=== PATIENT | male | born 1980 | race African-American/Black ===

== ENCOUNTER 2021-12-28 14:25 | Inpatient (IN) | payer SELFPAY ==
[~2021-12-28] VITALS: Ht 185.4 cm; Wt 122.1 kg
[2021-12-28] MEDS ORDERED: ONDANSETRON PF 4 MG/2 ML VIAL. IVP ONE (14:45)
[2021-12-28] MEDS ORDERED: IV NORMAL SALINE 1000ML BAG 1,000 ML IV SCH (14:45)
[2021-12-28] MEDS ORDERED: fentaNYL PF VIAL 100 MCG/2 ML VIAL IVP ONE (14:45)
--- NOTE | 2021-12-28 14:52 | PHYS DOC ---
Past Medical History Past Surgical History: No Surgical History Smoking Status: Current Every Day Smoker Additional Information: 0.5 PPD Alcohol Use: None General Adult EDM: Chief Complaint: ABDOMINAL PAIN HPI: HPI: Patient is a 41-year-old male who presents to the emergency department for left upper quadrant abdominal pain that started last night. Patient rates pain 10 out of 10. No radiation of pain. No alleviating or aggravating factors. He reports that he took Tylenol for the pain at home. Patient reports nausea with one episode of vomiting today. He has a history of pancreatitis but does not feel like this is his typical pancreatitis pain. He is unsure of his cause for his chronic pancreatitis but denies alcohol use. He also denies diarrhea, fevers, urinary symptoms. Review of Systems: Review of Systems: Constitutional: See HPI GI: See HPI : See HPI Musculoskeletal: Denies flank pain Heart Score: C/O Chest Pain: N/A Risk Factors: Risk Factors: DM, Current or recent (<one month) smoker, HTN, HLP, family history of CAD, obesity. Risk Scores: Score 0 - 3: 2.5% MACE over next 6 weeks - Discharge Home Score 4 - 6: 20.3% MACE over next 6 weeks - Admit for Clinical Observation Score 7 - 10: 72.7% MACE over next 6 weeks - Early Invasive Strategies Current Medications: Current Medications Medications (Trade) Dose Ordered Sig/Raul Start Time Stop Time Status Last Admin Dose Admin Fentanyl Citrate (Fentanyl 2ml Vial) 50 mcg 1X ONCE 12/28/21 14:45 12/28/21 14:46 DC Ondansetron HCl (Zofran) 4 mg 1X ONCE 12/28/21 14:45 12/28/21 14:46 DC Sodium Chloride 1,000 ml @ 1,000 mls/hr Q1H 12/28/21 14:45 12/28/21 15:44 Allergies: Allergies: Allergies Coded Allergies Type Severity Reaction Last Updated Verified No Known Drug Allergies 12/28/21 No Physical Exam: PE: Constitutional: Well developed, well nourished, no acute distress, non-toxic appearance. [] HENT: Normocephalic, atraumatic, bilateral external ears normal, oropharynx m oist, no oral exudates, nose normal. [] Eyes: PERRL, EOMI, conjunctiva normal, no discharge. [] Neck: Normal range of motion, no tenderness, supple, no stridor. [] Cardiovascular:Heart rate regular rhythm, no murmur [] Lungs & Thorax: Bilateral breath sounds clear to auscultation [] Abdomen: Bowel sounds normal, soft, no abdominal rigidity, left upper quadrant tenderness with palpation, no masses, neg cullens sign, no pulsatile masses. [] Skin: Warm, dry, no erythema, no rash. [] Back: No tenderness, no CVA tenderness. [] Extremities: No tenderness, no cyanosis, no clubbing, ROM intact, no edema. [] Neurologic: Alert and oriented X 3, normal motor function, normal sensory function, no focal deficits noted. [] Psychologic: Affect normal, judgement normal, mood normal. [] Current Patient Data: Labs: Laboratory Tests Test 12/28/21 14:41 12/28/21 18:12 White Blood Count 8.3 x10^3/uL Red Blood Count 5.67 x10^6/uL Hemoglobin 16.3 g/dL Hematocrit 47.8 % Mean Corpuscular Volume 84 fL Mean Corpuscular Hemoglobin 29 pg Mean Corpuscular Hemoglobin Concent 34 g/dL Red Cell Distribution Width 15.2 % Platelet Count 230 x10^3/uL Neutrophils (%) (Auto) 79 % Lymphocytes (%) (Auto) 16 % Monocytes (%) (Auto) 4 % Eosinophils (%) (Auto) 0 % Basophils (%) (Auto) 1 % Neutrophils # (Auto) 6.6 x10^3/uL Lymphocytes # (Auto) 1.3 x10^3/uL Monocytes # (Auto) 0.4 x10^3/uL Eosinophils # (Auto) 0.0 x10^3/uL Basophils # (Auto) 0.1 x10^3/uL Sodium Level 126 mmol/L Potassium Level 4.7 mmol/L Chloride Level 94 mmol/L Carbon Dioxide Level 26 mmol/L Anion Gap 6 Blood Urea Nitrogen 13 mg/dL Creatinine 0.4 mg/dL Estimated GFR (Cockcroft-Gault) 235.9 BUN/Creatinine Ratio 33 Glucose Level 311 mg/dL Calcium Level 7.0 mg/dL Phosphorus Level 1.7 mg/dL Magnesium Level 2.2 mg/dL Total Bilirubin 1.0 mg/dL Aspartate Amino Transf (AST/SGOT) 3020 U/L Alanine Aminotransferase (ALT/SGPT) 21 U/L Alkaline Phosphatase 960 U/L Troponin I High Sensitivity 5 ng/L Total Protein 7.9 g/dL Albumin 3.8 g/dL Albumin/Globulin Ratio 0.9 Lipase 748 U/L Urine Collection Type Unknown Urine Color (Auto) Light yellow Urine Turbidity Clear Urine pH (Auto) 8.0 Urine Specific [place] 1.029 Urine Protein (Auto) 50 mg/dL Urine Glucose (Auto)(UA) 100 mg/dL Urine Ketones (Auto) 60 mg/dL Urine Blood (Auto) Negative Urine Nitrite Negative Urine Bilirubin (Auto) Negative Urine Urobilinogen (Auto) Normal mg/dL Urine Leukocyte Esterase (Auto) Negative Urine RBC 0 /HPF Urine WBC 1-4 /HPF Urine Squamous Epithelial Cells Mod /LPF Urine Bacteria 0 /HPF Urine Mucus Mod /LPF Current Medications Medications (Trade) Dose Ordered Sig/Raul Route PRN Reason Start Time Stop Time Status Last Admin Dose Admin Sodium Chloride 1,000 ml @ 1,000 mls/hr Q1H IV 12/28/21 14:45 12/28/21 15:44 DC 12/28/21 14:53 Fentanyl Citrate (Fentanyl 2ml Vial) 50 mcg 1X ONCE IVP 12/28/21 14:45 12/28/21 14:46 DC 12/28/21 14:58 Ondansetron HCl (Zofran) 4 mg 1X ONCE IVP 12/28/21 14:45 12/28/21 14:46 DC 12/28/21 14:54 Morphine Sulfate (Morphine Sulfate) 2 mg 1X ONCE IVP 12/28/21 16:00 12/28/21 16:01 DC 12/28/21 15:47 Morphine Sulfate (Morphine Sulfate) 4 mg 1X ONCE IVP 12/28/21 16:00 12/28/21 16:02 DC 12/28/21 16:28 Iohexol (Omnipaque 300 Mg/ml) 75 ml 1X ONCE IV 12/28/21 17:15 12/28/21 17:16 DC 12/28/21 17:15 Info (CONTRAST GIVEN -- Rx MONITORING) 1 each PRN DAILY PRN MC SEE COMMENTS 12/28/21 17:15 12/30/21 17:14 Hydromorphone HCl (Dilaudid) 1 mg 1X ONCE IVP 12/28/21 18:15 12/28/21 18:16 DC 12/28/21 18:16 Vital Signs: Vital Signs Date Time Temp Pulse Resp B/P (MAP) Pulse Ox O2 Delivery O2 Flow Rate FiO2 12/28/21 14:25 98.6 118 22 194/89 (124) 96 Room Air 98.6 EKG: EKG: EKG performed by ER staff at 1631 shows sinus rhythm with rate of 75, QTC is 434, UT intervals 166, no STEMI read by Dr. Wharton 1632 [] Radiology/Procedures: Radiology/Procedures: []REASON: abdominal pain PROCEDURE: CT ABD PELV W/ IV CONTRST ONLY Exam: CT of abdomen and pelvis with contrast INDICATION: Abdominal pain TECHNIQUE: Sequential axial images through the abdomen and pelvis obtained following the administration of 74 mL of Isovue-370 IV contrast. Sagittal and coronal reformatted images were reconstructed from the axial data and reviewed. Exposure: One or more of the following in the visualized dose reduction techniques were utilized for this examination: 1. Automated exposure control 2. Adjustment of the MA and/or KV according to patient size 3. Use of iterative of reconstructive technique Comparisons: None FINDINGS: Heart size is normal. No pericardial effusion. Bandlike opacities at the lung bases likely representing atelectasis. No pleural effusion. Mild diffuse hepatic steatosis. Spleen, gallbladder and adrenals are unremarkable. There is extensive inflammatory changes surrounding the pancreatic tail which has an edematous appearance. No peripancreatic fluid collection is identified. Kidneys demonstrate symmetric enhancement. No perinephric inflammation or hydronephrosis. No renal or ureteral calculi are identified. Bladder is decompressed not well evaluated. Uterus is absent. No abnormal adnexal mass. Moderate amount of stool is noted in the colon. Appendix is normal. No free intra-abdominal air or fluid. No obstruction. Abdominal aorta has normal course caliber. Abdominal vasculature is patent. No suspicious osseous lesions or acute fractures. IMPRESSION: 1. Findings likely related to edematous pancreatitis. No peripancreatic fluid collection or ductal dilatation. 2. Diffuse hepatic steatosis. Electronically signed by: Leif Goldsmith MD (12/28/2021 7:10 PM) [facility] DICTATED and SIGNED BY: LEIF GOLDSMITH MD DATE: 12/28/211905 Course & Med Decision Making: Course & Med Decision Making Pertinent Labs and Imaging studies reviewed. (See chart for details) [] Patient presents to the emergency department for left upper quadrant pain with one episode of vomiting. Work-up in the ER consisted of blood work including lipase, urinalysis and CT imaging of abdomen and pelvis. Patient treated with IV fluids, nausea medication and pain medication. CBC unremarkable. Patient's sodium was 126, chloride of 96, patient had a critical calcium of 7. AST is 3020. Alk phos is 960, lipase is elevated at 748, negative troponin. Patient does not have Chvosteks sign. Patient is requiring multiple doses of IV pain medication and is frequently on his call light requesting pain medication. CT imaging of abdomen and pelvis shows edematous pancreatitis with no perinephric fluid or ductal dilation. Patient will need to be admitted for pancreatitis, intractable abdominal pain and hypocalcemia. Discussed these findings with Dr. Camejo who advised to give patient 1 g of calcium gluconate and order an ionized calcium level. He also advised ordering an abdominal ultrasound. Patient reports that when he last had pancreatitis he was in [place] and is unsure what imaging he had performed. Overall, patient is a poor historian. ER bridge orders placed this time 193. I discussed these findings with patient he is agreeable to care plan. Therese Disclaimer: Therese Disclaimer: This electronic medical record was generated, in whole or in part, using a voice recognition dictation system. Departure Departure Impression: Primary Impression: Pancreatitis Qualified Codes: K85.90 - Acute pancreatitis without necrosis or infection, unspecified Additional Impressions: Intractable abdominal pain Hypocalcemia Disposition: ADMITTED INPATIENT Admitting Physician: LOLA Condition: STABLE LEANNE MENA DRUMS TEACHER Dec 28, 2021 14:52
[2021-12-28 14:59] LABS: POTASSIUM 4.7 mmol/L (3.5-5.1)
[2021-12-28 15:03] LABS: BASO # 0.1 x10^3/uL (0.0-0.2); BASO % 1 % (0-3); EOS % 0 % (0-3); HEMATOCRIT 47.8 % (39.0-53.0); LYMPH # 1.3 x10^3/uL (1.0-4.8); LYMPH % 16 % (24-48); MEAN CORPUSCULAR VOLUME 84 fL (79-100); MONO # 0.4 x10^3/uL (0.0-1.1); MONO % 4 % (0-9); NEUT # 6.6 x10^3/uL (1.8-7.7); NEUT % 79 % (31-73); PLATELET COUNT 230 x10^3/uL (140-400); RED BLOOD COUNT 5.67 x10^6/uL (4.30-5.70); RED CELL DISTRIBUTION WIDTH 15.2 % (11.5-14.5); WHITE BLOOD COUNT 8.3 x10^3/uL (4.0-11.0)
[2021-12-28 15:05] LABS: ALBUMIN 3.8 g/dL (3.4-5.0); ALBUMIN/GLOBULIN RATIO 0.9 (1.0-1.7); TOTAL PROTEIN 7.9 g/dL (6.4-8.2)
[2021-12-28 15:38] LABS: MEAN CORPUSCULAR HEMOGLOBIN 29 pg (25-35); MEAN CORPUSCULAR HGB CONC 34 g/dL (31-37)
[2021-12-28 15:40] LABS: HEMOGLOBIN 16.3 g/dL (13.0-17.5)
[2021-12-28] MEDS ORDERED: MORPHINE SULFATE 2 MG/ML INJ. IVP ONE (16:00)
[2021-12-28] MEDS ORDERED: MORPHINE SULFATE 4 MG/ML INJ. IVP ONE (16:00)
[2021-12-28] MEDS ORDERED: IOHEXOL 300 MG/ML 100ML VIAL. IV ONE (17:15)
[2021-12-28] MEDS ORDERED: CONTRAST GIVEN. MC PRN (17:15)
[2021-12-28 18:07] LABS: CREATININE 0.4 mg/dL (0.7-1.3); GFR 235.9
[2021-12-28] MEDS ORDERED: HYDROmorphone 2 MG/ML INJ. IVP ONE (18:15)
[2021-12-28 18:35] LABS: BACTERIA,URINE 0 /HPF (0-FEW); RBC,URINE 0 /HPF (0-2)
[2021-12-28 19:00] LABS: MAGNESIUM 2.2 mg/dL (1.8-2.4)
--- NOTE | 2021-12-28 19:12 | RAD ---
Exam: CT of abdomen and pelvis with contrast INDICATION: Abdominal pain TECHNIQUE: Sequential axial images through the abdomen and pelvis obtained following the administrati on of 74 mL of Isovue-370 IV contrast. Sagittal and coronal reformatted images were reconstructed fro m the axial data and reviewed. Exposure: One or more of the following in the visualized dose reduction techniques were utilized for this examination: 1. Automated exposure control 2. Adjustment of the MA and/or KV according to patient size 3. Use of iterative of reconstructive technique Comparisons: None FINDINGS: Heart size is normal. No pericardial effusion. Bandlike opacities at the lung bases likely representi ng atelectasis. No pleural effusion. Mild diffuse hepatic steatosis. Spleen, gallbladder and adrenals are unremarkable. There is extensive inflammatory changes surrounding the pancreatic tail which has an edematous appear ance. No peripancreatic fluid collection is identified. Kidneys demonstrate symmetric enhancement. No perinephric inflammation or hydronephrosis. No renal or ureteral calculi are identified. Bladder is decompressed not well evaluated. Uterus is absent. No abnormal adnexal mass. Moderate amount of stool is noted in the colon. Appendix is normal. No free intra-abdominal air or fl uid. No obstruction. Abdominal aorta has normal course caliber. Abdominal vasculature is patent. No suspicious osseous lesions or acute fractures. IMPRESSION: 1. Findings likely related to edematous pancreatitis. No peripancreatic fluid collection or ductal d ilatation. 2. Diffuse hepatic steatosis. Electronically signed by: Leif Lawler MD (12/28/2021 7:10 PM) [facility]
[2021-12-28 19:20] LABS: PHOSPHORUS 1.7 mg/dL (2.6-4.7)
[2021-12-28] MEDS ORDERED: ONDANSETRON PF 4 MG/2 ML VIAL. IVP PRN (19:30)
[2021-12-28] MEDS ORDERED: CALCIUM GLUCONATE 1,000 MG/10 ML VIAL. IVP ONE (19:30)
[2021-12-28] MEDS: IV NORMAL SALINE 1000ML BAG 1,000 ML IV SCH (20:23)
--- NOTE | 2021-12-28 20:39 | RAD ---
EXAM: ULTRASOUND ABDOMEN LIMITED CLINICAL HISTORY: Reason: pancreatitis / Spl. Instructions: / History: COMPARISON: None available. TECHNIQUE: Limited ultrasound examination of the right upper quadrant of the abdomen was performed. FINDINGS: Liver contour is normal. Increased echogenicity of liver. Hepatopedal flow noted in the portal vein. Gallbladder is partially distended and appears thin-walled. No pericholecystic fluid or wall thickeni ng. No gallstones. Common bile duct measures 5 mm in diameter. Right kidney measures 12.4 cm in long axis. No hydronephrosis. Visualized portions aorta and IVC are unremarkable. IMPRESSION: 1. Diffuse hepatic steatosis. 2. Gallbladder is mildly distended. No secondary evidence for acute cholecystitis. 3. No right-sided hydronephrosis Electronically signed by: Leif Lawler MD (12/28/2021 8:37 PM) [facility]
--- NOTE | 2021-12-28 23:19 | NUR ---
admit to room 414 from ED at 2300, patient drowsy answers to yes and no questions and then fall back to sleep, Nursing solar installation crew supervisor notified regarding level of admit status,originally Aidan Vigil RN stated patient is Med/surg and he talked to the nurse practitioner Nichole ,patient is a Med-Surg admission.
[2021-12-28 23:55] VITALS: BP 156/102
[2021-12-29] VITALS (8 sets, daily range): BP systolic 110–192; BP diastolic 76–104
[2021-12-29] MEDS: MORPHINE SULFATE 4 MG/ML INJ. IVP PRN ×4 (00:07→14:29)
--- NOTE | 2021-12-29 00:10 | NUR ---
patient awake ,A nad O X4, screaming in pain holding his abdomen, pain medicine given per order.
--- NOTE | 2021-12-29 04:27 | EKG ---
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
[2021-12-29] MEDS: IV NORMAL SALINE 1000ML BAG 1,000 ML IV SCH ×2 (04:48→14:32)
[2021-12-29 08:20] LABS: BASO % 0 % (0-3); EOS % 0 % (0-3); HEMATOCRIT 54.5 % (39.0-53.0); HEMOGLOBIN 17.7 g/dL (13.0-17.5); LYMPH # 0.8 x10^3/uL (1.0-4.8); LYMPH % 9 % (24-48); MEAN CORPUSCULAR HEMOGLOBIN 28 pg (25-35); MEAN CORPUSCULAR HGB CONC 33 g/dL (31-37); MEAN CORPUSCULAR VOLUME 85 fL (79-100); MONO # 0.5 x10^3/uL (0.0-1.1); MONO % 6 % (0-9); NEUT # 7.3 x10^3/uL (1.8-7.7); NEUT % 84 % (31-73); PLATELET COUNT 259 x10^3/uL (140-400); RED BLOOD COUNT 6.44 x10^6/uL (4.30-5.70); RED CELL DISTRIBUTION WIDTH 15.4 % (11.5-14.5); WHITE BLOOD COUNT 8.7 x10^3/uL (4.0-11.0)
[2021-12-29 09:49] LABS: ALBUMIN 3.5 g/dL (3.4-5.0); ALBUMIN/GLOBULIN RATIO 0.7 (1.0-1.7); CALCIUM 6.3 mg/dL (8.5-10.1); CREATININE 1.9 mg/dL (0.7-1.3); GFR 47.3; TOTAL BILIRUBIN 0.9 mg/dL (0.2-1.0); TOTAL PROTEIN 8.3 g/dL (6.4-8.2)
[2021-12-29 10:35] LABS: POTASSIUM 6.8 mmol/L (3.5-5.1)
[2021-12-29 10:36] LABS: % BANDS 25 % (0-9); % EOS 1 % (0-5); % LYMPHS 9 % (24-48); % METAS 3 % (0-0); % MONOS 4 % (0-10); % SEGS 58 % (35-66)
[2021-12-29 10:37] LABS: PLT ESTIMATE ADEQUATE (ADEQUATE); TEAR DROP CELLS FEW; TOXIC GRANULATION SLIGHT
--- NOTE | 2021-12-29 12:16 | NUR ---
bladder scan performed. denies need to void. he had 143cc per bladder scan. abdomen is tender to touch.
--- NOTE | 2021-12-29 12:40 | PDOC2 ---
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 Limited history from him - "I don't even know where I am" (though does know he's in the hospital). "Stomach hurts" - started 2 days ago. Vomited once. H/o pancreatitis - hospitalized for this in [place] once before - says no cause identified. Denies alcohol use. Yesterday: AST 3020, Alk Phos 960, lipase 748. Today: AST 41, Alk Phos 68, GGT 47. On CT: hepatic steatosis, pancreatitis. On US: CBD 5mm, no gallstones, hepatopedal flow. PMH: PMH: see HPI FH: Family History: Other (unable to obtain) Social History: Smoke: 1 pack per day (per chart) ALCOHOL: none ROS: Difficult to obtain, see HPI. Vitals: Vitals: Vital Signs Date Time Temp Pulse Resp B/P (MAP) Pulse Ox O2 Delivery O2 Flow Rate FiO2 12/29/21 08:13 20 95 Nasal Cannula 2.0 12/29/21 07:00 98.5 122 129/91 (104) 98.5 Labs: Labs: Laboratory Tests Test 12/28/21 14:41 12/28/21 18:12 12/28/21 20:50 12/28/21 23:09 White Blood Count 8.3 x10^3/uL (4.0-11.0) Red Blood Count 5.67 x10^6/uL (4.30-5.70) Hemoglobin 16.3 g/dL (13.0-17.5) Hematocrit 47.8 % (39.0-53.0) Mean Corpuscular Volume 84 fL (79-100) Mean Corpuscular Hemoglobin 29 pg (25-35) Mean Corpuscular Hemoglobin Concent 34 g/dL (31-37) Red Cell Distribution Width 15.2 % (11.5-14.5) Platelet Count 230 x10^3/uL (140-400) Neutrophils (%) (Auto) 79 % (31-73) Lymphocytes (%) (Auto) 16 % (24-48) Monocytes (%) (Auto) 4 % (0-9) Eosinophils (%) (Auto) 0 % (0-3) Basophils (%) (Auto) 1 % (0-3) Neutrophils # (Auto) 6.6 x10^3/uL (1.8-7.7) Lymphocytes # (Auto) 1.3 x10^3/uL (1.0-4.8) Monocytes # (Auto) 0.4 x10^3/uL (0.0-1.1) Eosinophils # (Auto) 0.0 x10^3/uL (0.0-0.7) Basophils # (Auto) 0.1 x10^3/uL (0.0-0.2) Sodium Level 126 mmol/L (136-145) Potassium Level 4.7 mmol/L (3.5-5.1) Chloride Level 94 mmol/L (98-107) Carbon Dioxide Level 26 mmol/L (21-32) Anion Gap 6 (6-14) Blood Urea Nitrogen 13 mg/dL (8-26) Creatinine 0.4 mg/dL (0.7-1.3) Estimated GFR (Cockcroft-Gault) 235.9 BUN/Creatinine Ratio 33 (6-20) Glucose Level 311 mg/dL (70-99) Calcium Level 7.0 mg/dL (8.5-10.1) Phosphorus Level 1.7 mg/dL (2.6-4.7) Magnesium Level 2.2 mg/dL (1.8-2.4) Total Bilirubin 1.0 mg/dL (0.2-1.0) Aspartate Amino Transf (AST/SGOT) 3020 U/L (15-37) Alanine Aminotransferase (ALT/SGPT) 21 U/L (16-63) Alkaline Phosphatase 960 U/L (46-116) Troponin I High Sensitivity 5 ng/L (4-75) Total Protein 7.9 g/dL (6.4-8.2) Albumin 3.8 g/dL (3.4-5.0) Albumin/Globulin Ratio 0.9 (1.0-1.7) Lipase 748 U/L (73-393) Urine Collection Type Unknown Urine Color (Auto) Light yellow Urine Turbidity Clear Urine pH (Auto) 8.0 (<5.0-8.0) Urine Specific [place] 1.029 (1.000-1.030) Urine Protein (Auto) 50 mg/dL (Negative) Urine Glucose (Auto)(UA) 100 mg/dL (Negative) Urine Ketones (Auto) 60 mg/dL (Negative) Urine Blood (Auto) Negative (Negative) Urine Nitrite Negative (Negative) Urine Bilirubin (Auto) Negative (Negative) Urine Urobilinogen (Auto) Normal mg/dL (Normal) Urine Leukocyte Esterase (Auto) Negative (Negative) Urine RBC 0 /HPF (0-2) Urine WBC 1-4 /HPF (0-4) Urine Squamous Epithelial Cells Mod /LPF Urine Bacteria 0 /HPF (0-FEW) Urine Mucus Mod /LPF Ionized Calcium 1.07 mmol/L (1.13-1.32) Glucose (Fingerstick) 230 mg/dL (70-99) Test 12/29/21 07:40 12/29/21 08:45 White Blood Count 8.7 x10^3/uL (4.0-11.0) Red Blood Count 6.44 x10^6/uL (4.30-5.70) Hemoglobin 17.7 g/dL (13.0-17.5) Hematocrit 54.5 % (39.0-53.0) Mean Corpuscular Volume 85 fL (79-100) Mean Corpuscular Hemoglobin 28 pg (25-35) Mean Corpuscular Hemoglobin Concent 33 g/dL (31-37) Red Cell Distribution Width 15.4 % (11.5-14.5) Platelet Count 259 x10^3/uL (140-400) Neutrophils (%) (Auto) 84 % (31-73) Lymphocytes (%) (Auto) 9 % (24-48) Monocytes (%) (Auto) 6 % (0-9) Eosinophils (%) (Auto) 0 % (0-3) Basophils (%) (Auto) 0 % (0-3) Neutrophils # (Auto) 7.3 x10^3/uL (1.8-7.7) Lymphocytes # (Auto) 0.8 x10^3/uL (1.0-4.8) Monocytes # (Auto) 0.5 x10^3/uL (0.0-1.1) Eosinophils # (Auto) 0.0 x10^3/uL (0.0-0.7) Basophils # (Auto) 0.0 x10^3/uL (0.0-0.2) Segmented Neutrophils % 58 % (35-66) Band Neutrophils % 25 % (0-9) Lymphocytes % 9 % (24-48) Monocytes % 4 % (0-10) Eosinophils % 1 % (0-5) Metamyelocytes % 3 % (0-0) Toxic Granulation Slight Platelet Estimate Adequate (ADEQUATE) Large Platelets Occ Tear Drop Cells Few Sodium Level 130 mmol/L (136-145) Potassium Level 6.8 mmol/L (3.5-5.1) Chloride Level 96 mmol/L (98-107) Carbon Dioxide Level 18 mmol/L (21-32) Anion Gap 16 (6-14) Blood Urea Nitrogen 20 mg/dL (8-26) Creatinine 1.9 mg/dL (0.7-1.3) Estimated GFR (Cockcroft-Gault) 47.3 BUN/Creatinine Ratio 11 (6-20) Glucose Level 321 mg/dL (70-99) Calcium Level 6.3 mg/dL (8.5-10.1) Total Bilirubin 0.9 mg/dL (0.2-1.0) Gamma Glutamyl Transpeptidase 47 U/L (10-85) Aspartate Amino Transf (AST/SGOT) 41 U/L (15-37) Alanine Aminotransferase (ALT/SGPT) 20 U/L (16-63) Alkaline Phosphatase 68 U/L (46-116) Total Protein 8.3 g/dL (6.4-8.2) Albumin 3.5 g/dL (3.4-5.0) Albumin/Globulin Ratio 0.7 (1.0-1.7) Allergies: Coded Allergies: No Known Drug Allergies (Unverified , 12/28/21) Medications: Current Medications Medications (Trade) Dose Ordered Sig/Raul Route PRN Reason Start Time Stop Time Status Last Admin Dose Admin Sodium Chloride 1,000 ml @ 1,000 mls/hr Q1H IV 12/28/21 14:45 12/28/21 15:44 DC 12/28/21 14:53 Fentanyl Citrate (Fentanyl 2ml Vial) 50 mcg 1X ONCE IVP 12/28/21 14:45 12/28/21 14:46 DC 12/28/21 14:58 Ondansetron HCl (Zofran) 4 mg 1X ONCE IVP 12/28/21 14:45 12/28/21 14:46 DC 12/28/21 14:54 Morphine Sulfate (Morphine Sulfate) 2 mg 1X ONCE IVP 12/28/21 16:00 12/28/21 16:01 DC 12/28/21 15:47 Morphine Sulfate (Morphine Sulfate) 4 mg 1X ONCE IVP 12/28/21 16:00 12/28/21 16:02 DC 12/28/21 16:28 Iohexol (Omnipaque 300 Mg/ml) 75 ml 1X ONCE IV 12/28/21 17:15 12/28/21 17:16 DC 12/28/21 17:15 Hydromorphone HCl (Dilaudid) 1 mg 1X ONCE IVP 12/28/21 18:15 12/28/21 18:16 DC 12/28/21 18:16 Calcium Gluconate (Calcium Gluconate) 1,000 mg 1X ONCE IVP 12/28/21 19:30 12/28/21 19:34 DC 12/28/21 20:23 Ondansetron HCl (Zofran) 4 mg PRN Q8HRS PRN IVP NAUSEA/VOMITING 12/28/21 19:30 12/29/21 19:29 12/29/21 00:08 Morphine Sulfate (Morphine Sulfate) 4 mg PRN Q2HR PRN IVP PAIN 12/28/21 19:30 12/29/21 19:29 12/29/21 08:13 Sodium Chloride 1,000 ml @ 125 mls/hr Q8H IV 12/28/21 19:30 12/29/21 19:29 12/29/21 04:48 Imaging: Imaging: CT A/P 12/28 FINDINGS: Heart size is normal. No pericardial effusion. Bandlike opacities at the lung bases likely representing atelectasis. No pleural effusion. Mild diffuse hepatic steatosis. Spleen, gallbladder and adrenals are unremarkable. There is extensive inflammatory changes surrounding the pancreatic tail which has an edematous appearance. No peripancreatic fluid collection is identified. Kidneys demonstrate symmetric enhancement. No perinephric inflammation or hydronephrosis. No renal or ureteral calculi are identified. Bladder is decompressed not well evaluated. Uterus is absent. No abnormal adnexal mass. Moderate amount of stool is noted in the colon. Appendix is normal. No free intra-abdominal air or fluid. No obstruction. Abdominal aorta has normal course caliber. Abdominal vasculature is patent. No suspicious osseous lesions or acute fractures. IMPRESSION: 1. Findings likely related to edematous pancreatitis. No peripancreatic fluid collection or ductal dilatation. 2. Diffuse hepatic steatosis. Abd US 12/28 FINDINGS: Liver contour is normal. Increased echogenicity of liver. Hepatopedal flow noted in the portal vein. Gallbladder is partially distended and appears thin-walled. No pericholecystic fluid or wall thickening. No gallstones. Common bile duct measures 5 mm in diameter. Right kidney measures 12.4 cm in long axis. No hydronephrosis. Visualized portions aorta and IVC are unremarkable. IMPRESSION: 1. Diffuse hepatic steatosis. 2. Gallbladder is mildly distended. No secondary evidence for acute cholecystitis. 3. No right-sided hydronephrosis PE: GEN: appears ill HEENT: Atraumatic LUNGS: tachypneic, NC 2L, sat 93 HEART: tachycardic ABD: quiet, soft, epigastrium tender to light palpation EXTREMITY: No edema SKIN: sweating NEURO/PSYCH: lethargic, drifts in and out of sleep A/P: A/P: Abdominal pain - CT suggestive of pancreatitis Tachycardia, tachypnea Hyponatremia, hypocalcemia, hyperglycemia Hyperkalemia, MAYRA - new today, nephrology asked to see Markedly elevated AST and Alk Phos - resolved <24 hours, GGT normal Hepatic steatosis H/o pancreatitis -- Limited history - pancreatitis w/ multiple lab abnormalities as above, ?worsening resp status? Checking triglycerides, will return w/ Dr. Tsai. LUH BAHENA Dec 29, 2021 12:40
--- NOTE | 2021-12-29 12:55 | HP ---
DATE OF SERVICE: 12/29/2021 ADMIT DATE: 12/28/2021 CHIEF COMPLAINT: Abdominal pain. HISTORY OF PRESENT ILLNESS: The patient is a pleasant 41-year-old male who presented to the ER last night with 10/10 pain in the abdomen. We did some imaging and mainly showed pancreatitis. His lipase is high. Interestingly, his AST is really high at 3020, although he denies drinking. He also has hyponatremia of 126. I discussed the case with ER physician and the nurse. We are going to admit the patient and give him IV fluids, pain meds and consult GI. PAST MEDICAL HISTORY: Tobacco abuse. He denies drinking. ALLERGIES: None. FAMILY HISTORY: Diabetes. SOCIAL HISTORY: He denies drinking. He does smoke. No drugs. MEDICATIONS: Reviewed, please refer to the MRAD. REVIEW OF SYSTEMS: GENERAL: No history of weight change, weakness or fevers. SKIN: No bruising, hair changes or rashes. EYES: No blurred, double or loss of vision. NOSE AND THROAT: No history of nosebleeds, hoarseness or sore throat. HEART: No history of palpitations, chest pain or shortness of breath on exertion. LUNGS: Denies cough, hemoptysis, wheezing or shortness of breath. GASTROINTESTINAL: He complains abdominal pain. GENITOURINARY: No history of frequency, urgency, hesitancy or nocturia. NEUROLOGIC: Denies history of numbness, tingling, tremor or weakness. PSYCHIATRIC: No history of panic, anxiety or depression. ENDOCRINE: No history of heat or cold intolerance, polyuria or polydipsia. EXTREMITIES: Denies muscle weakness, joint pain, pain on walking or stiffness. PHYSICAL EXAMINATION: VITALS: Within normal limits and are stable. GENERAL: He is very weak and not talking much. HENT: Normal cephalic atraumatic, external auditory canals are patent EYES: Extraocular muscles are intact, pupils are equally round and reactive to light and accommodation MUSCULOSKELETAL: Well developed, well nourished, good range of motion ENDOCRINE: No thyromegaly was palpated LYMPHATICS: No cervical chain or axillary nodes were noted HEMATOPOIETIC: No bruising NECK: Supple, no JVD, no thyromegaly was noted. PULMONARY: He has slight crackles. HEART: RRR, S1, S2 present. Peripheral pulses intact, no obvious murmurs were noted. ABDOMEN: Tender diffusely with decreased bowel sounds. EXTREMITIES: Without any cyanosis, clubbing, or edema. Pedal pulses intact, Homans sign is negative. NEUROLOGIC: He is very weak and not talking much. PSYCHIATRIC: He is very weak and not talking much. SKIN: No ulcerations or rashes, good skin turgor, no jaundice. VASCULAR: Good capillary refill, neurovascular bundle appears to be intact. LABORATORY DATA: Sodium is 126, potassium 4.7, chloride 94, bicarbonate 26, BUN 13, creatinine 0.4, glucose 311. Calcium is little low at 7, magnesium 2.2, phosphorus is low at 1.7, AST 3020, alkaline phosphatase 960, albumin 3.8, lipase 748. Urinalysis negative. CT of the abdomen showing pancreatitis and fatty liver. ASSESSMENT AND PLAN: Pancreatitis and severe electrolyte disturbance with hyponatremia, hypocalcemia, hypophosphatemia, transaminitis. The patient has been admitted. We will consult GI, consult Nephrology. IV fluids, p.r.n. pain meds. Trend labs. I am going to check a GGTP level to help clarify whether he drinks alcohol. PRN morphine, p.r.n. Zofran. GILBERT/SIMEON/ADILIA DR: GILBERT/yael TID: [id number]
--- NOTE | 2021-12-29 13:25 | PDOC2 ---
CONSULT Date of Consult Date of Consult DATE: 12/29/21 TIME: 12:55 Reason for Consult Reason for Consult: MAYRA Identification/Chief Complaint Chief Complaint pain in abdomen Source Source: Chart review, Patient History of Present Illness Reason for Visit: Patient is a 41-year-old AA male who presents to the emergency department for left upper quadrant abdominal pain that started last night. Patient rates pain 10 out of 10. No radiation of pain. No alleviating or aggravating factors. He reports that he took Tylenol for the pain at home. Patient reports nausea with one episode of vomiting . He has a history of pancreatitis but does not feel like this is his typical pancreatitis pain. He is unsure of his cause for his chronic pancreatitis but denies alcohol use. He also denies diarrhea, fevers, urinary symptoms. Denies use of NSAI's, or any other OTC health supplements etc Denies any CP or SOB Past Medical History Past Medical History : Tobacco abuse. ? Hx of Pancreatitis Family History Family History Diabetes. Social History Social History He denies drinking. He does smoke. No drugs. Current Problem List Problem List Problems Medical Problems: (1) Hypocalcemia Status: Acute (2) Intractable abdominal pain Status: Acute (3) Pancreatitis Status: Acute Current Medications Current Medications Current Medications Sodium Chloride 1,000 ml @ 1,000 mls/hr Q1H IV Last administered on 12/28/21at 14:53; Start 12/28/21 at 14:45; Stop 12/28/21 at 15:44; Status DC Fentanyl Citrate (Fentanyl 2ml Vial) 50 mcg 1X ONCE IVP Last administered on 12/28/21at 14:58; Start 12/28/21 at 14:45; Stop 12/28/21 at 14:46; Status DC Ondansetron HCl (Zofran) 4 mg 1X ONCE IVP Last administered on 12/28/21at 14:54; Start 12/28/21 at 14:45; Stop 12/28/21 at 14:46; Status DC Morphine Sulfate (Morphine Sulfate) 2 mg 1X ONCE IVP Last administered on 12/28/21at 15:47; Start 12/28/21 at 16:00; Stop 12/28/21 at 16:01; Status DC Morphine Sulfate (Morphine Sulfate) 4 mg 1X ONCE IVP Last administered on 12/28/21at 16:28; Start 12/28/21 at 16:00; Stop 12/28/21 at 16:02; Status DC Iohexol (Omnipaque 300 Mg/ml) 75 ml 1X ONCE IV Last administered on 12/28/21at 17:15; Start 12/28/21 at 17:15; Stop 12/28/21 at 17:16; Status DC Info (CONTRAST GIVEN -- Rx MONITORING) 1 each PRN DAILY PRN MC SEE COMMENTS; Start 12/28/21 at 17:15; Stop 12/30/21 at 17:14 Hydromorphone HCl (Dilaudid) 1 mg 1X ONCE IVP Last administered on 12/28/21at 18:16; Start 12/28/21 at 18:15; Stop 12/28/21 at 18:16; Status DC Calcium Gluconate (Calcium Gluconate) 1,000 mg 1X ONCE IVP Last administered on 12/28/21at 20:23; Start 12/28/21 at 19:30; Stop 12/28/21 at 19:34; Status DC Ondansetron HCl (Zofran) 4 mg PRN Q8HRS PRN IVP NAUSEA/VOMITING Last administered on 12/29/21at 00:08; Start 12/28/21 at 19:30; Stop 12/29/21 at 19:29 Morphine Sulfate (Morphine Sulfate) 4 mg PRN Q2HR PRN IVP PAIN Last administered on 12/29/21at 08:13; Start 12/28/21 at 19:30; Stop 12/29/21 at 19:29 Sodium Chloride 1,000 ml @ 125 mls/hr Q8H IV Last administered on 12/29/21at 04:48; Start 12/28/21 at 19:30; Stop 12/29/21 at 19:29 Allergies Allergies: Coded Allergies: No Known Drug Allergies (Unverified , 12/28/21) ROS Review of System As per HPI rest f the RSO is negative Physical Exam Physical Exam General- Sleeping, easily arousable, NAD HEEN OM mildly dry Neck Supple Lungs Decreased at bases CV S1S2 Abd Obese, tender on palpation , Ext Ne LE edema Neuro Grossly normal NO Jones, No CVA or SP tenderness Psych Cooperative, falling asleep Vital Signs Vital Signs Date Time Temp Pulse Resp B/P (MAP) Pulse Ox O2 Delivery O2 Flow Rate FiO2 12/29/21 08:13 20 95 Nasal Cannula 2.0 12/29/21 07:00 98.5 122 129/91 (104) 98.5 Assessment & Plan MAYRA - Normal Creat normal at presentation in the ER on 12/28 , repeat labs in am with MAYRA, UOP not recorded. Per patient voided last night . Bladder scan ordered - no significant Residual(140's ml) . CT scan unremarkable Kidneys and Bladder , UA unremarkable Suspected etiology ATN /Intravascular depletion . R/O Abdominal compartment syndrome - consult GS . Defer to Primary CT scan with IV contrast on 12/28. Monitor clsely. Supportive care, maintain Hydration , avoid nephrotoxins, stri ct I/O HyperKalemia - Repeat Ordered for 10:44 am - still pending.Hu RN- Ordered Stat HypoNatremia- POA- improving, mildly low, corrcted for Glucose close to normal Continue IV NS HypoPhos-low at presentation, not sure if replaced . Repeat , if low replace HypoCalcemia - 2/2 Pancreatitis. Replace. Treat Primary etiology Edematous pancreatitis- c/o abdominal pain and tenderness . GI consulted Diffuse hepatic steatosis per GI Labs Labs Laboratory Tests Test 12/28/21 14:41 12/28/21 18:12 12/28/21 20:50 12/28/21 23:09 White Blood Count 8.3 x10^3/uL (4.0-11.0) Red Blood Count 5.67 x10^6/uL (4.30-5.70) Hemoglobin 16.3 g/dL (13.0-17.5) Hematocrit 47.8 % (39.0-53.0) Mean Corpuscular Volume 84 fL (79-100) Mean Corpuscular Hemoglobin 29 pg (25-35) Mean Corpuscular Hemoglobin Concent 34 g/dL (31-37) Red Cell Distribution Width 15.2 % (11.5-14.5) Platelet Count 230 x10^3/uL (140-400) Neutrophils (%) (Auto) 79 % (31-73) Lymphocytes (%) (Auto) 16 % (24-48) Monocytes (%) (Auto) 4 % (0-9) Eosinophils (%) (Auto) 0 % (0-3) Basophils (%) (Auto) 1 % (0-3) Neutrophils # (Auto) 6.6 x10^3/uL (1.8-7.7) Lymphocytes # (Auto) 1.3 x10^3/uL (1.0-4.8) Monocytes # (Auto) 0.4 x10^3/uL (0.0-1.1) Eosinophils # (Auto) 0.0 x10^3/uL (0.0-0.7) Basophils # (Auto) 0.1 x10^3/uL (0.0-0.2) Sodium Level 126 mmol/L (136-145) Potassium Level 4.7 mmol/L (3.5-5.1) Chloride Level 94 mmol/L (98-107) Carbon Dioxide Level 26 mmol/L (21-32) Anion Gap 6 (6-14) Blood Urea Nitrogen 13 mg/dL (8-26) Creatinine 0.4 mg/dL (0.7-1.3) Estimated GFR (Cockcroft-Gault) 235.9 BUN/Creatinine Ratio 33 (6-20) Glucose Level 311 mg/dL (70-99) Calcium Level 7.0 mg/dL (8.5-10.1) Phosphorus Level 1.7 mg/dL (2.6-4.7) Magnesium Level 2.2 mg/dL (1.8-2.4) Total Bilirubin 1.0 mg/dL (0.2-1.0) Aspartate Amino Transf (AST/SGOT) 3020 U/L (15-37) Alanine Aminotransferase (ALT/SGPT) 21 U/L (16-63) Alkaline Phosphatase 960 U/L (46-116) Troponin I High Sensitivity 5 ng/L (4-75) Total Protein 7.9 g/dL (6.4-8.2) Albumin 3.8 g/dL (3.4-5.0) Albumin/Globulin Ratio 0.9 (1.0-1.7) Lipase 748 U/L (73-393) Urine Collection Type Unknown Urine Color (Auto) Light yellow Urine Turbidity Clear Urine pH (Auto) 8.0 (<5.0-8.0) Urine Specific [place] 1.029 (1.000-1.030) Urine Protein (Auto) 50 mg/dL (Negative) Urine Glucose (Auto)(UA) 100 mg/dL (Negative) Urine Ketones (Auto) 60 mg/dL (Negative) Urine Blood (Auto) Negative (Negative) Urine Nitrite Negative (Negative) Urine Bilirubin (Auto) Negative (Negative) Urine Urobilinogen (Auto) Normal mg/dL (Normal) Urine Leukocyte Esterase (Auto) Negative (Negative) Urine RBC 0 /HPF (0-2) Urine WBC 1-4 /HPF (0-4) Urine Squamous Epithelial Cells Mod /LPF Urine Bacteria 0 /HPF (0-FEW) Urine Mucus Mod /LPF Ionized Calcium 1.07 mmol/L (1.13-1.32) Glucose (Fingerstick) 230 mg/dL (70-99) Test 12/29/21 07:40 12/29/21 08:45 White Blood Count 8.7 x10^3/uL (4.0-11.0) Red Blood Count 6.44 x10^6/uL (4.30-5.70) Hemoglobin 17.7 g/dL (13.0-17.5) Hematocrit 54.5 % (39.0-53.0) Mean Corpuscular Volume 85 fL (79-100) Mean Corpuscular Hemoglobin 28 pg (25-35) Mean Corpuscular Hemoglobin Concent 33 g/dL (31-37) Red Cell Distribution Width 15.4 % (11.5-14.5) Platelet Count 259 x10^3/uL (140-400) Neutrophils (%) (Auto) 84 % (31-73) Lymphocytes (%) (Auto) 9 % (24-48) Monocytes (%) (Auto) 6 % (0-9) Eosinophils (%) (Auto) 0 % (0-3) Basophils (%) (Auto) 0 % (0-3) Neutrophils # (Auto) 7.3 x10^3/uL (1.8-7.7) Lymphocytes # (Auto) 0.8 x10^3/uL (1.0-4.8) Monocytes # (Auto) 0.5 x10^3/uL (0.0-1.1) Eosinophils # (Auto) 0.0 x10^3/uL (0.0-0.7) Basophils # (Auto) 0.0 x10^3/uL (0.0-0.2) Segmented Neutrophils % 58 % (35-66) Band Neutrophils % 25 % (0-9) Lymphocytes % 9 % (24-48) Monocytes % 4 % (0-10) Eosinophils % 1 % (0-5) Metamyelocytes % 3 % (0-0) Toxic Granulation Slight Platelet Estimate Adequate (ADEQUATE) Large Platelets Occ Tear Drop Cells Few Sodium Level 130 mmol/L (136-145) Potassium Level 6.8 mmol/L (3.5-5.1) Chloride Level 96 mmol/L (98-107) Carbon Dioxide Level 18 mmol/L (21-32) Anion Gap 16 (6-14) Blood Urea Nitrogen 20 mg/dL (8-26) Creatinine 1.9 mg/dL (0.7-1.3) Estimated GFR (Cockcroft-Gault) 47.3 BUN/Creatinine Ratio 11 (6-20) Glucose Level 321 mg/dL (70-99) Calcium Level 6.3 mg/dL (8.5-10.1) Total Bilirubin 0.9 mg/dL (0.2-1.0) Gamma Glutamyl Transpeptidase 47 U/L (10-85) Aspartate Amino Transf (AST/SGOT) 41 U/L (15-37) Alanine Aminotransferase (ALT/SGPT) 20 U/L (16-63) Alkaline Phosphatase 68 U/L (46-116) Total Protein 8.3 g/dL (6.4-8.2) Albumin 3.5 g/dL (3.4-5.0) Albumin/Globulin Ratio 0.7 (1.0-1.7) Laboratory Tests Test 12/28/21 14:41 12/28/21 18:12 12/28/21 20:50 12/28/21 23:09 White Blood Count 8.3 x10^3/uL (4.0-11.0) Red Blood Count 5.67 x10^6/uL (4.30-5.70) Hemoglobin 16.3 g/dL (13.0-17.5) Hematocrit 47.8 % (39.0-53.0) Mean Corpuscular Volume 84 fL (79-100) Mean Corpuscular Hemoglobin 29 pg (25-35) Mean Corpuscular Hemoglobin Concent 34 g/dL (31-37) Red Cell Distribution Width 15.2 % (11.5-14.5) Platelet Count 230 x10^3/uL (140-400) Neutrophils (%) (Auto) 79 % (31-73) Lymphocytes (%) (Auto) 16 % (24-48) Monocytes (%) (Auto) 4 % (0-9) Eosinophils (%) (Auto) 0 % (0-3) Basophils (%) (Auto) 1 % (0-3) Neutrophils # (Auto) 6.6 x10^3/uL (1.8-7.7) Lymphocytes # (Auto) 1.3 x10^3/uL (1.0-4.8) Monocytes # (Auto) 0.4 x10^3/uL (0.0-1.1) Eosinophils # (Auto) 0.0 x10^3/uL (0.0-0.7) Basophils # (Auto) 0.1 x10^3/uL (0.0-0.2) Sodium Level 126 mmol/L (136-145) Potassium Level 4.7 mmol/L (3.5-5.1) Chloride Level 94 mmol/L (98-107) Carbon Dioxide Level 26 mmol/L (21-32) Anion Gap 6 (6-14) Blood Urea Nitrogen 13 mg/dL (8-26) Creatinine 0.4 mg/dL (0.7-1.3) Estimated GFR (Cockcroft-Gault) 235.9 BUN/Creatinine Ratio 33 (6-20) Glucose Level 311 mg/dL (70-99) Calcium Level 7.0 mg/dL (8.5-10.1) Phosphorus Level 1.7 mg/dL (2.6-4.7) Magnesium Level 2.2 mg/dL (1.8-2.4) Total Bilirubin 1.0 mg/dL (0.2-1.0) Aspartate Amino Transf (AST/SGOT) 3020 U/L (15-37) Alanine Aminotransferase (ALT/SGPT) 21 U/L (16-63) Alkaline Phosphatase 960 U/L (46-116) Troponin I High Sensitivity 5 ng/L (4-75) Total Protein 7.9 g/dL (6.4-8.2) Albumin 3.8 g/dL (3.4-5.0) Albumin/Globulin Ratio 0.9 (1.0-1.7) Lipase 748 U/L (73-393) Urine Collection Type Unknown Urine Color (Auto) Light yellow Urine Turbidity Clear Urine pH (Auto) 8.0 (<5.0-8.0) Urine Specific [place] 1.029 (1.000-1.030) Urine Protein (Auto) 50 mg/dL (Negative) Urine Glucose (Auto)(UA) 100 mg/dL (Negative) Urine Ketones (Auto) 60 mg/dL (Negative) Urine Blood (Auto) Negative (Negative) Urine Nitrite Negative (Negative) Urine Bilirubin (Auto) Negative (Negative) Urine Urobilinogen (Auto) Normal mg/dL (Normal) Urine Leukocyte Esterase (Auto) Negative (Negative) Urine RBC 0 /HPF (0-2) Urine WBC 1-4 /HPF (0-4) Urine Squamous Epithelial Cells Mod /LPF Urine Bacteria 0 /HPF (0-FEW) Urine Mucus Mod /LPF Ionized Calcium 1.07 mmol/L (1.13-1.32) Glucose (Fingerstick) 230 mg/dL (70-99) Test 12/29/21 07:40 12/29/21 08:45 White Blood Count 8.7 x10^3/uL (4.0-11.0) Red Blood Count 6.44 x10^6/uL (4.30-5.70) Hemoglobin 17.7 g/dL (13.0-17.5) Hematocrit 54.5 % (39.0-53.0) Mean Corpuscular Volume 85 fL (79-100) Mean Corpuscular Hemoglobin 28 pg (25-35) Mean Corpuscular Hemoglobin Concent 33 g/dL (31-37) Red Cell Distribution Width 15.4 % (11.5-14.5) Platelet Count 259 x10^3/uL (140-400) Neutrophils (%) (Auto) 84 % (31-73) Lymphocytes (%) (Auto) 9 % (24-48) Monocytes (%) (Auto) 6 % (0-9) Eosinophils (%) (Auto) 0 % (0-3) Basophils (%) (Auto) 0 % (0-3) Neutrophils # (Auto) 7.3 x10^3/uL (1.8-7.7) Lymphocytes # (Auto) 0.8 x10^3/uL (1.0-4.8) Monocytes # (Auto) 0.5 x10^3/uL (0.0-1.1) Eosinophils # (Auto) 0.0 x10^3/uL (0.0-0.7) Basophils # (Auto) 0.0 x10^3/uL (0.0-0.2) Segmented Neutrophils % 58 % (35-66) Band Neutrophils % 25 % (0-9) Lymphocytes % 9 % (24-48) Monocytes % 4 % (0-10) Eosinophils % 1 % (0-5) Metamyelocytes % 3 % (0-0) Toxic Granulation Slight Platelet Estimate Adequate (ADEQUATE) Large Platelets Occ Tear Drop Cells Few Sodium Level 130 mmol/L (136-145) Potassium Level 6.8 mmol/L (3.5-5.1) Chloride Level 96 mmol/L (98-107) Carbon Dioxide Level 18 mmol/L (21-32) Anion Gap 16 (6-14) Blood Urea Nitrogen 20 mg/dL (8-26) Creatinine 1.9 mg/dL (0.7-1.3) Estimated GFR (Cockcroft-Gault) 47.3 BUN/Creatinine Ratio 11 (6-20) Glucose Level 321 mg/dL (70-99) Calcium Level 6.3 mg/dL (8.5-10.1) Total Bilirubin 0.9 mg/dL (0.2-1.0) Gamma Glutamyl Transpeptidase 47 U/L (10-85) Aspartate Amino Transf (AST/SGOT) 41 U/L (15-37) Alanine Aminotransferase (ALT/SGPT) 20 U/L (16-63) Alkaline Phosphatase 68 U/L (46-116) Total Protein 8.3 g/dL (6.4-8.2) Albumin 3.5 g/dL (3.4-5.0) Albumin/Globulin Ratio 0.7 (1.0-1.7) Review All relevant outside records, renal labs, imaging studies, telemetry/EKG's were reviewed. Images Images Exam: CT of abdomen and pelvis with contrast INDICATION: Abdominal pain TECHNIQUE: Sequential axial images through the abdomen and pelvis obtained following the administration of 74 mL of Isovue-370 IV contrast. Sagittal and coronal reformatted images were reconstructed from the axial data and reviewed. Exposure: One or more of the following in the visualized dose reduction technBURLESQUICEOUS ues were utilized for this examination: 1. Automated exposure control 2. Adjustment of the MA and/or KV according to patient size 3. Use of iterative of reconstructive technique Comparisons: None FINDINGS: Heart size is normal. No pericardial effusion. Bandlike opacities at the lung bases likely representing atelectasis. No pleural effusion. Mild diffuse hepatic steatosis. Spleen, gallbladder and adrenals are unremarkable. There is extensive inflammatory changes surrounding the pancreatic tail which has an edematous appearance. No peripancreatic fluid collection is identified. Kidneys demonstrate symmetric enhancement. No perinephric inflammation or hydronephrosis. No renal or ureteral calculi are identified. Bladder is decompressed not well evaluated. Uterus is absent. No abnormal adnexal mass. Moderate amount of stool is noted in the colon. Appendix is normal. No free int ra-abdominal air or fluid. No obstruction. Abdominal aorta has normal course caliber. Abdominal vasculature is patent. No suspicious osseous lesions or acute fractures. IMPRESSION: 1. Findings likely related to edematous pancreatitis. No peripancreatic fluid collection or ductal dilatation. 2. Diffuse hepatic steatosis. : ULTRASOUND ABDOMEN LIMITED CLINICAL HISTORY: Reason: pancreatitis / Spl. Instructions: / History: COMPARISON: None available. TECHNIQUE: Limited ultrasound examination of the right upper quadrant of the abdomen was performed. FINDINGS: Liver contour is normal. Increased echogenicity of liver. Hepatopedal flow noted in the portal vein. Gallbladder is partially distended and appears thin-walled. No pericholecystic fluid or wall thickening. No gallstones. Common bile duct measures 5 mm in diameter. Right kidney measures 12.4 cm in long axis. No hydronephrosis. Visualized portions aorta and IVC are unremarkable. IMPRESSION: 1. Diffuse hepatic steatosis. 2. Gallbladder is mildly distended. No secondary evidence for acute cholecyst itis. 3. No right-sided hydronephrosis DOMO SANCHES MD Dec 29, 2021 13:25
[2021-12-29 14:27] LABS: ALBUMIN 3.1 g/dL (3.4-5.0); CALCIUM 6.1 mg/dL (8.5-10.1); CREATININE 1.8 mg/dL (0.7-1.3); GFR 50.3
[2021-12-29] MEDS: PANTOPRAZOLE IV PUSH 40 MG VIAL. IVP SCH (14:29)
[2021-12-29 14:43] LABS: POTASSIUM 7.7 mmol/L (3.5-5.1)
[2021-12-29] MEDS ORDERED: LIDOCAINE WITH 8.4% SOD BICARB 3 ML DISP.SYRIN. ONE (15:07)
[2021-12-29] MEDS ORDERED: DEXTROSE 50% 25 GM / 50ML DISP.SYRIN. IV PRN (15:15)
[2021-12-29] MEDS ORDERED: DIALYSIS PATIENT. MC PRN ×2 (15:15)
[2021-12-29] MEDS ORDERED: IV NORMAL SALINE 1000ML BAG 1,000 ML IV PRN ×2 (15:15)
[2021-12-29] MEDS ORDERED: ALBUMIN HUMAN 25% 200 ML IV PRN (15:15)
[2021-12-29] MEDS ORDERED: 0.9 % SODIUM CHLORIDE 10 ML DISP.SYRIN. IV PRN ×2 (15:15)
[2021-12-29] MEDS ORDERED: IV DEXTROSE 5% 250 ML BAG. IV PRN (15:15)
[2021-12-29] MEDS ORDERED: LIDOCAINE WITH 8.4% SOD BICARB 3 ML DISP.SYRIN. INJ ONE (15:45)
--- NOTE | 2021-12-29 15:51 | NUR ---
18 fr henderson inserted for accurate I and O with immediate return of 200 carolyn cloudy urine. . potassium and other labs called to Dr. Melendez. received orders for temp dialysis cath and to go to dialysis. IR consulted and called Report to IR and dialysis given consent for cath obtained. down to radiology; they will transfer to dialysis after insertion
[2021-12-29] MEDS: INSULIN LISPRO 300 UNITS/3 ML VIAL. SQ SCH (17:00)
--- NOTE | 2021-12-29 18:26 | NUR ---
still remains in dialysis
[2021-12-29] MEDS ORDERED: MORPHINE SULFATE 2 MG/ML INJ. IVP ONE (22:30)
[2021-12-30] VITALS (7 sets, daily range): BP systolic 112–174; BP diastolic 81–101
[2021-12-30] MEDS: MORPHINE SULFATE 2 MG/ML INJ. IVP PRN ×6 (01:33→23:17)
[2021-12-30] MEDS: PANTOPRAZOLE IV PUSH 40 MG VIAL. IVP SCH (07:25)
--- NOTE | 2021-12-30 09:50 | PDOC ---
DATE OF SERVICE DATE: 12/30/21 TIME: 09:49 SUBJECTIVE ROS Denies N/V, still c/o abdomen feeling distended/tight and tender . OBJECTIVE Vital Signs Vital Signs Date Time Temp Pulse Resp B/P (MAP) Pulse Ox O2 Delivery O2 Flow Rate FiO2 12/30/21 08:14 Nasal Cannula 2.0 12/30/21 07:24 20 93 12/30/21 07:00 98.4 131 174/96 (122) 98.4 I & 0 Intake and Output 12/30/21 07:00 Output Total 600 ml Balance -600 ml Output Urine Total 600 ml PHYSICAL EXAM Physical Exam General- NAD HEEN OM mildly dry Neck Supple Lungs Decreased at bases CV S1S2, Tachycardic Abd Obese, tender on palpation ,distended, tight Ext Ne LE edema Neuro Grossly normal Henderson + , No CVA or SP tenderness Psych Cooperative, DIAGNOSIS/ASSESSMENT Assessment & Plan MAYRA - Normal Creat normal at presentation in the ER on 12/28 , repeat labs in am with MAYRA, UOP not recorded. Per patient voided last night . Bladder scan ordered - no significant Residual(140's ml) . CT scan unremarkable Kidneys and Bladder , UA unremarkable Suspected etiology ATN /Intravascular depletion/Pancreatitis . CT scan with IV contrast on 12/28. Recommendations in my initial consult - Primary is Dr Holder Please Check Intrabdominal pressure to r/o Abd compartment syndrome . Discussed with Nursing Monitor closely. Supportive care, maintain Hydration , avoid nephrotoxins, strict I/O(not sure if accurately charted, has some dark urine in the henderson ) HyperKalemia - Emergent dialysis 12/29 . K normal today HypoNatremia- POA- resolved HypoPhos-mildly low HypoCalcemia - 2/2 Pancreatitis. Replace. Treat Primary etiology Edematous pancreatitis- c/o abdominal pain and tenderness . GI consulted Diffuse hepatic steatosis per GI COMMENT/RELEVANT DATA Meds Current Medications Medications (Trade) Dose Ordered Sig/Raul Start Time Stop Time Status Last Admin Dose Admin Albumin Human 200 ml @ 200 mls/hr 1X PRN PRN 12/29/21 15:15 12/29/21 21:14 DC Calcium Gluconate (Calcium Gluconate) 1,000 mg 1X ONCE 12/28/21 19:30 12/28/21 19:34 DC 12/28/21 20:23 1,000 MG Dextrose (Dextrose 50%-Water Syringe) 12.5 gm PRN Q15MIN PRN 12/29/21 15:15 12/29/21 15:11 DC Dextrose (Iv Dextrose 5%) 250 ml PRN Q15MIN PRN 12/29/21 15:15 Fentanyl Citrate (Fentanyl 2ml Vial) 50 mcg 1X ONCE 12/28/21 14:45 12/28/21 14:46 DC 12/28/21 14:58 50 MCG Hydromorphone HCl (Dilaudid) 1 mg 1X ONCE 12/28/21 18:15 12/28/21 18:16 DC 12/28/21 18:16 1 MG Info (CONTRAST GIVEN -- Rx MONITORING) 1 each PRN DAILY PRN 12/28/21 17:15 12/30/21 17:14 Info (PHARMACY MONITORING -- do not chart) 1 each PRN DAILY PRN 12/29/21 15:15 Insulin Human Lispro (HumaLOG) 0-5 UNITS TIDWMEALS 12/29/21 17:00 Iohexol (Omnipaque 300 Mg/ml) 75 ml 1X ONCE 12/28/21 17:15 12/28/21 17:16 DC 12/28/21 17:15 75 ML Lidocaine HCl (Buffered Lidocaine 1%) 3 ml 1X ONCE 12/29/21 15:45 12/29/21 15:46 DC 12/29/21 15:42 5 ML Morphine Sulfate (Morphine Sulfate) 2 mg PRN Q2HR PRN 12/29/21 23:30 12/30/21 07:24 2 MG Ondansetron HCl (Zofran) 4 mg PRN Q8HRS PRN 12/28/21 19:30 12/29/21 19:29 DC 12/29/21 00:08 4 MG Pantoprazole Sodium (PROTONIX VIAL for IV PUSH) 40 mg DAILYAC 12/29/21 14:00 12/30/21 07:25 40 MG Sodium Chloride 1,000 ml @ 400 mls/hr Q2H30M PRN 12/29/21 15:15 12/30/21 03:14 DC Sodium Chloride (Normal Saline Flush) 10 ml 1X PRN PRN 12/29/21 15:15 12/30/21 15:14 Lab Laboratory Tests Test 12/29/21 14:00 12/30/21 07:53 Sodium Level 131 mmol/L (136-145) Potassium Level 7.7 mmol/L (3.5-5.1) Chloride Level 99 mmol/L (98-107) Carbon Dioxide Level 19 mmol/L (21-32) Anion Gap 13 (6-14) Blood Urea Nitrogen 26 mg/dL (8-26) Creatinine 1.8 mg/dL (0.7-1.3) Estimated GFR (Cockcroft-Gault) 50.3 Glucose Level 344 mg/dL (70-99) Calcium Level 6.1 mg/dL (8.5-10.1) Phosphorus Level 2.0 mg/dL (2.6-4.7) Creatine Kinase 1012 U/L (39-308) Albumin 3.1 g/dL (3.4-5.0) Hepatitis B Surface Antigen Nonreactive (Nonreactive) Hepatitis B Surface Antibody Nonreactive Glucose (Fingerstick) 281 mg/dL (70-99) Results All relevant outside records, renal labs, imaging studies, telemetry/EKG's were reviewed. Justicifation of Admission Dx: Justifications for Admission: Justification of Admission Dx: N/A DOMO SANCHES MD Dec 30, 2021 09:50
[2021-12-30] MEDS: INSULIN LISPRO 300 UNITS/3 ML VIAL. SQ SCH ×3 (10:09→17:00)
--- NOTE | 2021-12-30 10:16 | PDOC ---
Date of Service: DATE: 12/30/21 TIME: 10:05 Subjective: Subjective: Doesn't feel good. Unaware of any hypertriglyceridemia history. Abdomen is "tight," denies nausea. Objective: Objective: D/w nurse who already plans to address IVF w/ primary/nephrology. Tmax 100. S/p temp HD cath and dialysis yesterday. 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 Nurse to discuss IVF w/ primary. Consider interval CT. Reviewing all w/ Dr. Tsai, will follow-up. Justicifation of Admission Dx: Justifications for Admission: Justification of Admission Dx: Yes [facility] BA[facility]NA Dec 30, 2021 10:16
[2021-12-30 10:28] LABS: HEMATOCRIT 45.9 % (39.0-53.0); HEMOGLOBIN 14.7 g/dL (13.0-17.5); RED BLOOD COUNT 5.43 x10^6/uL (4.30-5.70); RED CELL DISTRIBUTION WIDTH 15.8 % (11.5-14.5); WHITE BLOOD COUNT 7.1 x10^3/uL (4.0-11.0)
[2021-12-30 10:50] LABS: ALBUMIN 2.9 g/dL (3.4-5.0); CALCIUM 6.8 mg/dL (8.5-10.1); CREATININE 2.1 mg/dL (0.7-1.3); GFR 42.1; PHOSPHORUS 2.1 mg/dL (2.6-4.7); POTASSIUM 4.3 mmol/L (3.5-5.1)
[2021-12-30 11:10] LABS: ALBUMIN 2.9 g/dL (3.4-5.0); DIRECT BILIRUBIN 0.3 mg/dL (0.0-0.2); TOTAL PROTEIN 7.4 g/dL (6.4-8.2)
--- NOTE | 2021-12-30 11:31 | PDOC ---
[employer] PROGRESS NOTE Date of Service DOS: DATE: 12/30/21 TIME: 11:27 Chief Complaint Chief Complaint Hyperkalemia requiring emergent dialysis yesterday Tachycardia Pancreatitis secondary to hypertriglyceridemia and severe electrolyte disturbance with hyponatremia, hypocalcemia, hypophosphatemia, transaminitis. History of Present Illness History of Present Illness 12/30/2021 Patient seen and examined He is tachycardic this morning He got emergent dialysis yesterday Potassium now down to 4.3 Discussed with case management Discussed with RN Chart reviewed We have placed a Jones We are starting normal saline at 50 cc an hour as he seems dehydrated intravascularly I am going to move him to a monitored bed Vitals/I&O Vitals/I&O: Vital Signs Date Time Temp Pulse Resp B/P (MAP) Pulse Ox O2 Delivery O2 Flow Rate FiO2 12/30/21 11:00 98.1 126 18 139/95 (110) 93 Nasal Cannula 2.0 98.1 I & O 12/29/21 12/29/21 12/30/21 15:00 23:00 07:00 Output Total 200 ml 400 ml Balance -200 ml -400 ml Physical Exam General: No acute distress, Other (Lethargic) Heart: Other (Tachycardic) Lungs: Clear Abdomen: Normal bowel sounds Extremities: No clubbing Skin: No rashes Labs Labs: Laboratory Tests Test 12/29/21 14:00 12/30/21 07:53 12/30/21 09:30 Sodium Level 131 mmol/L (136-145) 137 mmol/L (136-145) Potassium Level 7.7 mmol/L (3.5-5.1) 4.3 mmol/L (3.5-5.1) Chloride Level 99 mmol/L (98-107) 100 mmol/L (98-107) Carbon Dioxide Level 19 mmol/L (21-32) 24 mmol/L (21-32) Anion Gap 13 (6-14) 13 (6-14) Blood Urea Nitrogen 26 mg/dL (8-26) 31 mg/dL (8-26) Creatinine 1.8 mg/dL (0.7-1.3) 2.1 mg/dL (0.7-1.3) Estimated GFR (Cockcroft-Gault) 50.3 42.1 Glucose Level 344 mg/dL (70-99) 264 mg/dL (70-99) Calcium Level 6.1 mg/dL (8.5-10.1) 6.8 mg/dL (8.5-10.1) Phosphorus Level 2.0 mg/dL (2.6-4.7) 2.1 mg/dL (2.6-4.7) Creatine Kinase 1012 U/L (39-308) Albumin 3.1 g/dL (3.4-5.0) 2.9 g/dL (3.4-5.0) Hepatitis B Surface Antigen Nonreactive (Nonreactive) Hepatitis B Surface Antibody Nonreactive Glucose (Fingerstick) 281 mg/dL (70-99) White Blood Count 7.1 x10^3/uL (4.0-11.0) Red Blood Count 5.43 x10^6/uL (4.30-5.70) Hemoglobin 14.7 g/dL (13.0-17.5) Hematocrit 45.9 % (39.0-53.0) Mean Corpuscular Volume 85 fL (79-100) Mean Corpuscular Hemoglobin 27 pg (25-35) Mean Corpuscular Hemoglobin Concent 32 g/dL (31-37) Red Cell Distribution Width 15.8 % (11.5-14.5) Platelet Count 155 x10^3/uL (140-400) Total Bilirubin 1.0 mg/dL (0.2-1.0) Direct Bilirubin 0.3 mg/dL (0.0-0.2) Aspartate Amino Transf (AST/SGOT) 33 U/L (15-37) Alanine Aminotransferase (ALT/SGPT) 15 U/L (16-63) Alkaline Phosphatase 49 U/L (46-116) Total Protein 7.4 g/dL (6.4-8.2) Lipase 708 U/L (73-393) Assessment and Plan Assessmemt and Plan Problems Medical Problems: (1) Hypocalcemia Status: Acute (2) Intractable abdominal pain Status: Acute (3) Pancreatitis Status: Acute Hyperkalemia requiring emergent dialysis yesterday Tachycardia Pancreatitis secondary to hypertriglyceridemia and severe electrolyte disturbance with hyponatremia, hypocalcemia, hypophosphatemia, transaminitis. Plan We will transfer to a monitored bed Dialysis per nephrology Trend labs IV normal saline at 50 cc an hour Continue Jones to BSD Appreciate GI and nephrology input Home meds when possible DVT prophylaxis Full code Comment Review of Relevant I have reviewed the following items goyo (where applicable) has been applied. Medications: Current Medications Medications (Trade) Dose Ordered Sig/Raul Route PRN Reason Start Time Stop Time Status Last Admin Dose Admin Pantoprazole Sodium (PROTONIX VIAL for IV PUSH) 40 mg DAILYAC IVP 12/29/21 14:00 12/30/21 07:25 Insulin Human Lispro (HumaLOG) 0-5 UNITS TIDWMEALS SQ 12/29/21 17:00 12/30/21 10:09 Lidocaine HCl (Buffered Lidocaine 1%) 3 ml 1X ONCE INJ 12/29/21 15:45 12/29/21 15:46 DC 12/29/21 15:42 Morphine Sulfate (Morphine Sulfate) 2 mg 1X ONCE IVP 12/29/21 22:30 12/29/21 22:31 DC 12/29/21 22:23 Morphine Sulfate (Morphine Sulfate) 2 mg PRN Q2HR PRN IVP SEVERE PAIN 7-10 12/29/21 23:30 12/30/21 07:24 Justifications for Admission Other Justification ANGELO LEO III DO Dec 30, 2021 11:31
--- NOTE | 2021-12-30 11:48 | RAD ---
Procedure: Temporary hemodialysis catheter placement at the bedside. Clinical Indication: Adult male requiring hemodialysis Sedation: Local anesthesia only Antibiotics: None Fluoro Time: Not applicable Contrast: None Sterility: All elements of maximal sterile barrier technique including the use of a cap, mask, steril e gown, sterile gloves, large sterile sheet, appropriate hand hygiene, and 2% chlorhexidine for cutan eous antisepsis (or acceptable alternative antiseptic per current guidelines) were followed for this procedure. Consent: The procedure was explained in its entirety to the patient or the patients designated repres entative by a member of the treatment team, including a discussion of the risks, benefits and commonl y accepted alternatives to the procedure, as well as the expected consequences of no therapy whatsoev er. Discussion of the risks included, but was not limited to, those that are most frequent and thos e that are rare but possibly severe or life-threatening, as well as the possibility of unforeseen com plications. Technique and Findings: Following informed consent, the patient was prepped and draped in the usual s terile fashion. Ultrasound interrogation of the right neck revealed patency and compressibility of t he right internal jugular vein. A 21-gauge micropuncture needle was used to gain access to this vein after 1% Lidocaine was used to achieve local anesthesia. A hardcopy ultrasound image was recorded. The needle was exchanged over a wire for serial dilators followed by a 20 cm Schon temporary hemodia lysis catheter which was deployed in the expected location of the mid right atrium. The catheter mariola w rates were assessed manually and found to be excellent. The catheter was then flushed, packed with Heparin, capped, and sutured to the skin. Chest x-ray was then obtained to assess line position. Complications: No immediate Impression: 1. Ultrasound guided placement of a temporary hemodialysis catheter which exhibits excellent manual f low rates as described. Electronically signed by: Ridge Lynne MD (12/30/2021 11:45 AM) [id number]
[2021-12-30] MEDS: IV NORMAL SALINE 1000ML BAG 1,000 ML IV SCH (12:30)
--- NOTE | 2021-12-30 15:38 | NUR ---
report called to Sarah on 2n. informed that he will be going to icu. called icu and gave report to Zayda. headphones, clothing belt cell phone and wallet with ID with patient. o2 on at 2l Jones emptied 400cc urine.
--- NOTE | 2021-12-30 16:00 | NUR ---
Pt transferred to ICU at 1530 for intraabdominal pressure reading to be done. Pressure reading = 7mm.
[2021-12-31] MEDS: MORPHINE SULFATE 2 MG/ML INJ. IVP PRN ×6 (03:27→21:02)
[2021-12-31 05:30] LABS: ALBUMIN 2.8 g/dL (3.4-5.0); CALCIUM 7.1 mg/dL (8.5-10.1); GFR 44.6; PHOSPHORUS 1.8 mg/dL (2.6-4.7); POTASSIUM 3.9 mmol/L (3.5-5.1)
[2021-12-31] MEDS: INSULIN LISPRO 300 UNITS/3 ML VIAL. SQ SCH ×3 (07:20→17:00)
[2021-12-31] MEDS: PANTOPRAZOLE IV PUSH 40 MG VIAL. IVP SCH (07:34)
[2021-12-31 08:00] VITALS: BP 150/103
[2021-12-31] MEDS: IV NORMAL SALINE 1000ML BAG 1,000 ML IV SCH (08:29)
--- NOTE | 2021-12-31 09:32 | PDOC ---
Date of Service: DATE: 12/31/21 TIME: Subjective: Subjective: Speech difficult to understand. Objective: Objective: D/w nurse - out of it but stable, likes pain meds. Vital Signs: Vital Signs Date Time Temp Pulse Resp B/P (MAP) Pulse Ox O2 Delivery O2 Flow Rate FiO2 12/31/21 08:59 14 12/31/21 06:55 97 Nasal Cannula 2.0 12/30/21 20:00 98.6 116 112/81 (91) 98.6 Labs: Laboratory Tests Test 12/30/21 09:30 12/30/21 11:30 12/30/21 12:11 12/30/21 15:40 White Blood Count 7.1 x10^3/uL Red Blood Count 5.43 x10^6/uL Hemoglobin 14.7 g/dL Hematocrit 45.9 % Mean Corpuscular Volume 85 fL Mean Corpuscular Hemoglobin 27 pg Mean Corpuscular Hemoglobin Concent 32 g/dL Red Cell Distribution Width 15.8 % Platelet Count 155 x10^3/uL Sodium Level 137 mmol/L Potassium Level 4.3 mmol/L Chloride Level 100 mmol/L Carbon Dioxide Level 24 mmol/L Anion Gap 13 Blood Urea Nitrogen 31 mg/dL Creatinine 2.1 mg/dL Estimated GFR (Cockcroft-Gault) 42.1 Glucose Level 264 mg/dL Calcium Level 6.8 mg/dL Phosphorus Level 2.1 mg/dL Total Bilirubin 1.0 mg/dL Direct Bilirubin 0.3 mg/dL Aspartate Amino Transf (AST/SGOT) 33 U/L Alanine Aminotransferase (ALT/SGPT) 15 U/L Alkaline Phosphatase 49 U/L Total Protein 7.4 g/dL Albumin 2.9 g/dL Lipase 708 U/L Lactic Acid Level 2.1 mmol/L 1.9 mmol/L Glucose (Fingerstick) 259 mg/dL Test 12/30/21 18:04 12/31/21 04:50 Glucose (Fingerstick) 215 mg/dL Sodium Level 138 mmol/L Potassium Level 3.9 mmol/L Chloride Level 102 mmol/L Carbon Dioxide Level 26 mmol/L Anion Gap 10 Blood Urea Nitrogen 32 mg/dL Creatinine 2.0 mg/dL Estimated GFR (Cockcroft-Gault) 44.6 Glucose Level 173 mg/dL Calcium Level 7.1 mg/dL Phosphorus Level 1.8 mg/dL Creatine Kinase 512 U/L Albumin 2.8 g/dL PE: GEN: NAD LUNGS: clear, NC 2L HEART: tachycardic ABD: some distention, pretty quiet, less tender? NEURO/PSYCH: mumbling, reaching for ice chips A/P: Severe pancreatitis w/ hypertriglyceridemia, electrolyte disturbance -- Na, K, Cr better. Continue support. May need to consider interval CT, TPN. Justicifation of Admission Dx: Justifications for Admission: Justification of Admission Dx: N/A [facility] Dec 31, 2021 09:32
--- NOTE | 2021-12-31 10:14 | PDOC ---
DATE OF SERVICE DATE: 12/31/21 TIME: 10:09 SUBJECTIVE ROS States feeling better Denies N/V, asking for Juice OBJECTIVE Vital Signs Vital Signs Date Time Temp Pulse Resp B/P (MAP) Pulse Ox O2 Delivery O2 Flow Rate FiO2 12/31/21 08:59 14 12/31/21 06:55 97 Nasal Cannula 2.0 12/30/21 20:00 98.6 116 112/81 (91) 98.6 I & 0 Intake and Output 12/31/21 07:00 Intake Total 1010 ml Output Total 2075 ml Balance -1065 ml Intake Oral 330 ml IV Total 680 ml Output Urine Total 2075 ml PHYSICAL EXAM Physical Exam General- NAD HEEN OM mildly dry Neck Supple Lungs Decreased at bases CV S1S2, Tachycardic Abd Obese, tender on palpation ,distended, tight Ext Ne LE edema Neuro Grossly normal Jones + , No CVA or SP tenderness Psych Cooperative, DIAGNOSIS/ASSESSMENT Assessment & Plan MAYRA - Creat normal at presentation in the ER on 12/28 , CT scan unremarkable Kidneys and Bladder , UA unremarkable Suspected etiology ATN /Intravascular depletion/Pancreatitis . CT scan with IV contrast on 12/28. Mildly elevated CK at presentation , Improved Ordered IAP; ACS ruled out . Creatinine stable, UOP improved . Supportive care, maintain fluid balance . Currently NPO- recommendations per GI HyperKalemia - Emergent dialysis 12/29 x1 . K normal today HypoNatremia- POA- resolved HypoPhos- low , replace HypoCalcemia - 2/2 Pancreatitis. Replace. Treat Primary etiology Edematous pancreatitis- c/o abdominal pain and tenderness . GI consulted Diffuse hepatic steatosis per GI COMMENT/RELEVANT DATA Meds Current Medications Medications (Trade) Dose Ordered Sig/Raul Start Time Stop Time Status Last Admin Dose Admin Albumin Human 200 ml @ 200 mls/hr 1X PRN PRN 12/29/21 15:15 12/29/21 21:14 DC Calcium Gluconate (Calcium Gluconate) 1,000 mg 1X ONCE 12/28/21 19:30 12/28/21 19:34 DC 12/28/21 20:23 1,000 MG Dextrose (Dextrose 50%-Water Syringe) 12.5 gm PRN Q15MIN PRN 12/29/21 15:15 12/29/21 15:11 DC Dextrose (Iv Dextrose 5%) 250 ml PRN Q15MIN PRN 12/29/21 15:15 Fentanyl Citrate (Fentanyl 2ml Vial) 50 mcg 1X ONCE 12/28/21 14:45 12/28/21 14:46 DC 12/28/21 14:58 50 MCG Hydromorphone HCl (Dilaudid) 1 mg 1X ONCE 12/28/21 18:15 12/28/21 18:16 DC 12/28/21 18:16 1 MG Info (CONTRAST GIVEN -- Rx MONITORING) 1 each PRN DAILY PRN 12/28/21 17:15 12/30/21 17:14 DC Info (PHARMACY MONITORING -- do not chart) 1 each PRN DAILY PRN 12/29/21 15:15 Insulin Human Lispro (HumaLOG) 0-5 UNITS TIDWMEALS 12/29/21 17:00 12/30/21 12:22 2 UNITS Iohexol (Omnipaque 300 Mg/ml) 75 ml 1X ONCE 12/28/21 17:15 12/28/21 17:16 DC 12/28/21 17:15 75 ML Lidocaine HCl (Buffered Lidocaine 1%) 3 ml 1X ONCE 12/29/21 15:45 12/29/21 15:46 DC 12/29/21 15:42 5 ML Morphine Sulfate (Morphine Sulfate) 2 mg PRN Q2HR PRN 12/29/21 23:30 12/31/21 08:29 2 MG Ondansetron HCl (Zofran) 4 mg PRN Q8HRS PRN 12/28/21 19:30 12/29/21 19:29 DC 12/29/21 00:08 4 MG Pantoprazole Sodium (PROTONIX VIAL for IV PUSH) 40 mg DAILYAC 12/29/21 14:00 12/31/21 07:34 40 MG Sodium Chloride 1,000 ml @ 50 mls/hr Q20H 12/30/21 12:30 12/31/21 08:29 50 MLS/HR Sodium Chloride (Normal Saline Flush) 10 ml 1X PRN PRN 12/29/21 15:15 12/30/21 15:14 DC Lab Laboratory Tests Test 12/30/21 11:30 12/30/21 12:11 12/30/21 15:40 12/30/21 18:04 Lactic Acid Level 2.1 mmol/L (0.4-2.0) 1.9 mmol/L (0.4-2.0) Glucose (Fingerstick) 259 mg/dL (70-99) 215 mg/dL (70-99) Test 12/31/21 04:50 Sodium Level 138 mmol/L (136-145) Potassium Level 3.9 mmol/L (3.5-5.1) Chloride Level 102 mmol/L (98-107) Carbon Dioxide Level 26 mmol/L (21-32) Anion Gap 10 (6-14) Blood Urea Nitrogen 32 mg/dL (8-26) Creatinine 2.0 mg/dL (0.7-1.3) Estimated GFR (Cockcroft-Gault) 44.6 Glucose Level 173 mg/dL (70-99) Calcium Level 7.1 mg/dL (8.5-10.1) Phosphorus Level 1.8 mg/dL (2.6-4.7) Creatine Kinase 512 U/L (39-308) Albumin 2.8 g/dL (3.4-5.0) Results All relevant outside records, renal labs, imaging studies, telemetry/EKG's were reviewed. Justicifation of Admission Dx: Justifications for Admission: Justification of Admission Dx: N/A DOMO SANCHES MD Dec 31, 2021 10:14
--- NOTE | 2021-12-31 10:48 | PDOC ---
[employer] PROGRESS NOTE Date of Service DOS: DATE: 12/31/21 TIME: 10:43 Chief Complaint Chief Complaint Hyperkalemia requiring emergent dialysis yesterday Tachycardia Pancreatitis secondary to hypertriglyceridemia and severe electrolyte disturbance with hyponatremia, hypocalcemia, hypophosphatemia, transaminitis. History of Present Illness History of Present Illness 12/31/21: Patient seen in ICU. Somewhat somnolent today, possibly due to pain medication. When I pressed on his stomach he does wince and admit some tende rness. Apparently patient is not an alcohol drinker, but on admission triglycerides were 2004. We will repeat triglycerides. Discussed with RN, if triglycerides significant elevated (>1000) we can initiate insulin drip check triglycerides every 6 hours. Will stop insulin drip once triglycerides <500. Continue IV fluids. He will likely discharge on fenofibrate and omega-3 fatty acids. 30 minutes critical care time spent reviewing charts, reviewing labs, reviewing imaging, discussion with RN. 12/30/2021 Patient seen and examined He is tachycardic this morning He got emergent dialysis yesterday Potassium now down to 4.3 Discussed with case management Discussed with RN Chart reviewed We have placed a Jones We are starting normal saline at 50 cc an hour as he seems dehydrated intravascularly I am going to move him to a monitored bed Vitals/I&O Vitals/I&O: Vital Signs Date Time Temp Pulse Resp B/P (MAP) Pulse Ox O2 Delivery O2 Flow Rate FiO2 12/31/21 08:59 14 12/31/21 08:00 Nasal Cannula 2.0 12/31/21 06:55 97 12/30/21 20:00 98.6 116 112/81 (91) 98.6 I & O 12/30/21 12/30/21 12/31/21 15:00 23:00 07:00 Intake Total 280 ml 730 ml Output Total 650 ml 825 ml 600 ml Balance -650 ml -545 ml 130 ml Physical Exam General: Alert, No acute distress, Other (Lethargic) Heart: Other (Tachycardic) Lungs: Clear Abdomen: Normal bowel sounds Extremities: No clubbing Skin: No rashes Labs Labs: Laboratory Tests Test 12/30/21 11:30 12/30/21 12:11 12/30/21 15:40 12/30/21 18:04 Lactic Acid Level 2.1 mmol/L (0.4-2.0) 1.9 mmol/L (0.4-2.0) Glucose (Fingerstick) 259 mg/dL (70-99) 215 mg/dL (70-99) Test 12/31/21 04:50 Sodium Level 138 mmol/L (136-145) Potassium Level 3.9 mmol/L (3.5-5.1) Chloride Level 102 mmol/L (98-107) Carbon Dioxide Level 26 mmol/L (21-32) Anion Gap 10 (6-14) Blood Urea Nitrogen 32 mg/dL (8-26) Creatinine 2.0 mg/dL (0.7-1.3) Estimated GFR (Cockcroft-Gault) 44.6 Glucose Level 173 mg/dL (70-99) Calcium Level 7.1 mg/dL (8.5-10.1) Phosphorus Level 1.8 mg/dL (2.6-4.7) Creatine Kinase 512 U/L (39-308) Albumin 2.8 g/dL (3.4-5.0) Assessment and Plan Assessmemt and Plan Problems Medical Problems: (1) Hypocalcemia Status: Acute (2) Intractable abdominal pain Status: Acute (3) Pancreatitis Status: Acute Comment Review of Relevant I have reviewed the following items goyo (where applicable) has been applied. Medications: Current Medications Medications (Trade) Dose Ordered Sig/Raul Route PRN Reason Start Time Stop Time Status Last Admin Dose Admin Sodium Chloride 1,000 ml @ 50 mls/hr Q20H IV 12/30/21 12:30 12/31/21 08:29 Justifications for Admission Other Justification KATH GARCIA MD Dec 31, 2021 10:48
[2021-12-31] MEDS ORDERED: SODIUM PHOSPHATE 20 MMOL in IV NORMAL SALINE 250ML 250 ML IV ONE (11:00)
[2021-12-31 12:00] VITALS: BP 169/94
[2021-12-31 16:00] VITALS: BP 145/103
--- NOTE | 2021-12-31 17:44 | NUR ---
RECEIVED FROM ICU; ALERT TO NAME PLACE. "STILL NOT SURE WHAT HAPPENED" BLOOD SUGAR 180. HEART RATE REMAINS TACHY AND REGULAR. ABDOMEN IS DISTENDED FIRM AND TENDER TO TOUCH. DENIES BOWEL MOVEMENT TODAY. SALINE LOCK/IV FLUIDS INFUSING IN LEFT HAND. SALINE LOCK IN LEFT AC. TAPIA TO DD; PATENT WITH ORANGE CLOUDY URINE.
[2021-12-31 20:00] VITALS: BP 185/105
[2021-12-31 20:58] VITALS: BP 166/91
[2021-12-31 23:55] VITALS: BP 167/124
[2022-01-01] VITALS (7 sets, daily range): BP systolic 141–194; BP diastolic 67–110
[2022-01-01] MEDS: MORPHINE SULFATE 2 MG/ML INJ. IVP PRN ×6 (00:37→22:41)
[2022-01-01] MEDS: IV NORMAL SALINE 1000ML BAG 1,000 ML IV SCH (03:24)
[2022-01-01] MEDS: PANTOPRAZOLE IV PUSH 40 MG VIAL. IVP SCH (06:30)
[2022-01-01] MEDS: INSULIN LISPRO 300 UNITS/3 ML VIAL. SQ SCH ×3 (08:00→17:00)
[2022-01-01 08:38] LABS: ALBUMIN 2.6 g/dL (3.4-5.0); CALCIUM 7.7 mg/dL (8.5-10.1); CREATININE 1.6 mg/dL (0.7-1.3); GFR 57.6; PHOSPHORUS 2.3 mg/dL (2.6-4.7); POTASSIUM 3.9 mmol/L (3.5-5.1)
--- NOTE | 2022-01-01 09:11 | PDOC ---
DATE OF SERVICE DATE: 01/01/22 TIME: 09:10 SUBJECTIVE ROS States feeling better Denies N/V, asking for [employer] Juice OBJECTIVE Vital Signs Vital Signs Date Time Temp Pulse Resp B/P (MAP) Pulse Ox O2 Delivery O2 Flow Rate FiO2 01/01/22 08:55 106 194/100 01/01/22 08:00 98.3 22 95 Nasal Cannula 2.0 98.3 I & 0 Intake and Output 01/01/22 07:00 Intake Total 200 ml Output Total 2025 ml Balance -1825 ml Intake Oral 200 ml Output Urine Total 2025 ml PHYSICAL EXAM Physical Exam General- NAD HEEN OM moist Neck Supple Lungs Decreased at bases CV S1S2, Abd Obese, soft, NT Ext Ne LE edema Neuro Grossly normal Jones + , No CVA or SP tenderness Psych Cooperative, DIAGNOSIS/ASSESSMENT Assessment & Plan MAYRA - Creat normal at presentation in the ER on 12/28 , CT scan unremarkable Kidneys and Bladder , UA unremarkable Suspected etiology ATN /Intravascular depletion/Pancreatitis . CT scan with IV contrast on 12/28. Mildly elevated CK at presentation , Improved Creatinine trending down, Supportive care, maintain fluid balance- DC IVF once has PO intake . Currently NPO- recommendations per GI HyperKalemia - Emergent dialysis 12/29 x1 . K normal today HypoNatremia- POA- resolved HypoPhos- replaced IV 12/31, Improved, Mildly low. Will improve once he is starts taking PO HypoCalcemia - 2/2 Pancreatitis. Replace. Treat Primary etiology Edematous pancreatitis- c/o abdominal pain and tenderness . GI consulted Diffuse hepatic steatosis per GI COMMENT/RELEVANT DATA Meds Current Medications Medications (Trade) Dose Ordered Sig/Raul Start Time Stop Time Status Last Admin Dose Admin Albumin Human 200 ml @ 200 mls/hr 1X PRN PRN 12/29/21 15:15 12/29/21 21:14 DC Amlodipine Besylate (Norvasc) 10 mg DAILY 01/01/22 09:00 01/01/22 08:55 10 MG Calcium Gluconate (Calcium Gluconate) 1,000 mg 1X ONCE 12/28/21 19:30 12/28/21 19:34 DC 12/28/21 20:23 1,000 MG Dextrose (Dextrose 50%-Water Syringe) 12.5 gm PRN Q15MIN PRN 12/29/21 15:15 12/29/21 15:11 DC Dextrose (Iv Dextrose 5%) 250 ml PRN Q15MIN PRN 12/29/21 15:15 Fentanyl Citrate (Fentanyl 2ml Vial) 50 mcg 1X ONCE 12/28/21 14:45 12/28/21 14:46 DC 12/28/21 14:58 50 MCG Hydromorphone HCl (Dilaudid) 1 mg 1X ONCE 12/28/21 18:15 12/28/21 18:16 DC 12/28/21 18:16 1 MG Info (CONTRAST GIVEN -- Rx MONITORING) 1 each PRN DAILY PRN 12/28/21 17:15 12/30/21 17:14 DC Info (PHARMACY MONITORING -- do not chart) 1 each PRN DAILY PRN 12/29/21 15:15 Insulin Human Lispro (HumaLOG) 0-5 UNITS TIDWMEALS 12/29/21 17:00 12/30/21 12:22 2 UNITS Iohexol (Omnipaque 300 Mg/ml) 75 ml 1X ONCE 12/28/21 17:15 12/28/21 17:16 DC 12/28/21 17:15 75 ML Lidocaine HCl (Buffered Lidocaine 1%) 3 ml 1X ONCE 12/29/21 15:45 12/29/21 15:46 DC 12/29/21 15:42 5 ML Morphine Sulfate (Morphine Sulfate) 2 mg PRN Q2HR PRN 12/29/21 23:30 01/01/22 05:34 2 MG Ondansetron HCl (Zofran) 4 mg PRN Q8HRS PRN 12/28/21 19:30 12/29/21 19:29 DC 12/29/21 00:08 4 MG Pantoprazole Sodium (PROTONIX VIAL for IV PUSH) 40 mg DAILYAC 12/29/21 14:00 01/01/22 06:30 40 MG Sodium Chloride 1,000 ml @ 50 mls/hr Q20H 12/30/21 12:30 01/01/22 03:24 50 MLS/HR Sodium Chloride (Normal Saline Flush) 10 ml 1X PRN PRN 12/29/21 15:15 12/30/21 15:14 DC Sodium Phosphate 20 mmol/Sodium Chloride 256.6667 ml @ 64.167 m... 1X ONCE 12/31/21 11:00 12/31/21 14:59 DC 12/31/21 11:02 64.167 MLS/HR Lab Laboratory Tests Test 12/31/21 11:50 12/31/21 17:39 12/31/21 19:51 01/01/22 06:55 Glucose (Fingerstick) 169 mg/dL (70-99) 180 mg/dL (70-99) 186 mg/dL (70-99) Sodium Level 139 mmol/L (136-145) Potassium Level 3.9 mmol/L (3.5-5.1) Chloride Level 103 mmol/L (98-107) Carbon Dioxide Level 26 mmol/L (21-32) Anion Gap 10 (6-14) Blood Urea Nitrogen 34 mg/dL (8-26) Creatinine 1.6 mg/dL (0.7-1.3) Estimated GFR (Cockcroft-Gault) 57.6 Glucose Level 167 mg/dL (70-99) Calcium Level 7.7 mg/dL (8.5-10.1) Phosphorus Level 2.3 mg/dL (2.6-4.7) Albumin 2.6 g/dL (3.4-5.0) Test 01/01/22 07:29 Glucose (Fingerstick) 185 mg/dL (70-99) Results All relevant outside records, renal labs, imaging studies, telemetry/EKG's were reviewed. Justicifation of Admission Dx: Justifications for Admission: Justification of Admission Dx: N/A DOMO SANCHES MD Jan 01, 2022 09:11
--- NOTE | 2022-01-01 10:24 | PDOC ---
Date of Service: DATE: 01/01/22 TIME: 10:20 Subjective: Subjective: "I was about to drift into a deep sleep." More alert today, says less pain and stooled last night. Objective: Objective: D/w nurse - primary started BP meds. Vital Signs: Vital Signs Date Time Temp Pulse Resp B/P (MAP) Pulse Ox O2 Delivery O2 Flow Rate FiO2 01/01/22 08:55 106 194/100 01/01/22 08:00 98.3 22 95 Nasal Cannula 2.0 98.3 Labs: Laboratory Tests Test 12/31/21 11:50 12/31/21 17:39 12/31/21 19:51 01/01/22 06:55 Glucose (Fingerstick) 169 mg/dL 180 mg/dL 186 mg/dL Sodium Level 139 mmol/L Potassium Level 3.9 mmol/L Chloride Level 103 mmol/L Carbon Dioxide Level 26 mmol/L Anion Gap 10 Blood Urea Nitrogen 34 mg/dL Creatinine 1.6 mg/dL Estimated GFR (Cockcroft-Gault) 57.6 Glucose Level 167 mg/dL Calcium Level 7.7 mg/dL Phosphorus Level 2.3 mg/dL Albumin 2.6 g/dL Lipase 368 U/L Test 01/01/22 07:29 Glucose (Fingerstick) 185 mg/dL PE: GEN: NAD LUNGS: clear, NC 2L HEART: tachycardic ABD: still pretty "full" but maybe a little softer, few quiet gurgles NEURO/PSYCH: drowsy but more alert today A/P: Severe pancreatitis w/ hypertriglyceridemia MAYRA - better HTN -- Bit better today, labs improving. Try sips of clear liquids - d/w nurse. Justicifation of Admission Dx: Justifications for Admission: Justification of Admission Dx: N/A L[facility] BAHENA Jan 01, 2022 10:24
--- NOTE | 2022-01-01 10:32 | PDOC ---
[employer] PROGRESS NOTE Date of Service DOS: DATE: 01/01/22 TIME: 10:31 Chief Complaint Chief Complaint Hyperkalemia requiring emergent dialysis X1 MAYRA Tachycardia Pancreatitis secondary to hypertriglyceridemia and severe electrolyte disturbance with hyponatremia, hypocalcemia, hypophosphatemia, transaminitis. History of Present Illness History of Present Illness 01/01/2022 Patient now transferred out of ICU to the monitored floor He is more alert wants to drink some orange juice I rechecked a lipase level is coming down to the 300s we will try clear liquid diet His creatinine is up to 2 but potassium still within normal limits Discussed with RN Discussed with case management Chart reviewed 12/31/21: Patient seen in ICU. Somewhat somnolent today, possibly due to pain medication. When I pressed on his stomach he does wince and admit some tenderness. Apparently patient is not an alcohol drinker, but on admission triglycerides were 2004. We will repeat triglycerides. Discussed with RN, if triglycerides significant elevated (>1000) we can initiate insulin drip check triglycerides every 6 hours. Will stop insulin drip once triglycerides <500. Continue IV fluids. He will likely discharge on fenofibrate and omega-3 fatty acids. 30 minutes critical care time spent reviewing charts, reviewing labs, reviewing imaging, discussion with RN. 12/30/2021 Patient seen and examined He is tachycardic this morning He got emergent dialysis yesterday Potassium now down to 4.3 Discussed with case management Discussed with RN Chart reviewed We have placed a Jones We are starting normal saline at 50 cc an hour as he seems dehydrated intravascularly I am going to move him to a monitored bed Vitals/I&O Vitals/I&O: Vital Signs Date Time Temp Pulse Resp B/P (MAP) Pulse Ox O2 Delivery O2 Flow Rate FiO2 01/01/22 08:55 106 194/100 01/01/22 08:00 98.3 22 95 Nasal Cannula 2.0 98.3 I & O 12/31/21 12/31/21 01/01/22 15:00 23:00 07:00 Intake Total 200 ml Output Total 950 ml 1075 ml Balance -750 ml -1075 ml Physical Exam General: Alert, No acute distress, Other (Less lethargic wants to drink orange juice) Heart: Other (Tachycardic) Lungs: Clear Abdomen: Normal bowel sounds Extremities: No clubbing Skin: No rashes Labs Labs: Laboratory Tests Test 12/31/21 11:50 12/31/21 17:39 12/31/21 19:51 01/01/22 06:55 Glucose (Fingerstick) 169 mg/dL (70-99) 180 mg/dL (70-99) 186 mg/dL (70-99) Sodium Level 139 mmol/L (136-145) Potassium Level 3.9 mmol/L (3.5-5.1) Chloride Level 103 mmol/L (98-107) Carbon Dioxide Level 26 mmol/L (21-32) Anion Gap 10 (6-14) Blood Urea Nitrogen 34 mg/dL (8-26) Creatinine 1.6 mg/dL (0.7-1.3) Estimated GFR (Cockcroft-Gault) 57.6 Glucose Level 167 mg/dL (70-99) Calcium Level 7.7 mg/dL (8.5-10.1) Phosphorus Level 2.3 mg/dL (2.6-4.7) Albumin 2.6 g/dL (3.4-5.0) Lipase 368 U/L (73-393) Test 01/01/22 07:29 Glucose (Fingerstick) 185 mg/dL (70-99) Assessment and Plan Assessmemt and Plan Problems Medical Problems: (1) Hypocalcemia Status: Acute (2) Intractable abdominal pain Status: Acute (3) Pancreatitis Status: Acute Hyperkalemia requiring emergent dialysis X1 MAYRA Tachycardia Pancreatitis secondary to hypertriglyceridemia and severe electrolyte disturbance with hyponatremia, hypocalcemia, hypophosphatemia, transaminitis. Plan quality assurance monitor chassis Monitor triglycerides Monitor electrolyte Following creatinine closely, hopefully he will not need dialysis again (appreciate nephrology input) We will try clear liquid diet We will follow his lipase levels IV normal saline at 50 cc an hour Continue Jones to BSD Appreciate GI and nephrology input Home meds when possible DVT prophylaxis Full code Per nephrology input please see the following and we certainly agree and appreciate their recommendations; Assessment & Plan MAYRA - Creat normal at presentation in the ER on 12/28 , CT scan unremarkable Kidneys and Bladder , UA unremarkable Suspected etiology ATN /Intravascular depletion/Pancreatitis . CT scan with IV contrast on 12/28. Mildly elevated CK at presentation , Improved Ordered IAP; ACS ruled out . Creatinine stable, UOP improved . Supportive care, maintain fluid balance . Currently NPO- recommendations per GI HyperKalemia - Emergent dialysis 12/29 x1 . K normal today HypoNatremia- POA- resolved HypoPhos- low , replace HypoCalcemia - 2/2 Pancreatitis. Replace. Treat Primary etiology Edematous pancreatitis- c/o abdominal pain and tenderness . GI consulted Diffuse hepatic steatosis per GI Comment Review of Relevant I have reviewed the following items goyo (where applicable) has been applied. Medications: Current Medications Medications (Trade) Dose Ordered Sig/Raul Route PRN Reason Start Time Stop Time Status Last Admin Dose Admin Sodium Phosphate 20 mmol/Sodium Chloride 256.6667 ml @ 64.167 m... 1X ONCE IV 12/31/21 11:00 12/31/21 14:59 DC 12/31/21 11:02 Amlodipine Besylate (Norvasc) 10 mg DAILY PO 01/01/22 09:00 01/01/22 08:55 Justifications for Admission Other Justification ANGELO LEO III DO Jan 01, 2022 10:32
[2022-01-01] MEDS ORDERED: SODIUM PHOSPHATE 15 MMOL in IV NORMAL SALINE 100ML 100 ML IV ONE (13:00)
--- NOTE | 2022-01-01 16:29 | NUR ---
SS following for discharge planning. SS reviewed pt chart and discussed with pt RN. Pt is from home and is currently requiring oxygen at two liters nasal canula. GI and Nephrology following. Self pay. Med Assist following. SS will continue to follow for discharge planning.
[2022-01-01] MEDS ORDERED: ONDANSETRON PF 4 MG/2 ML VIAL. IVP PRN (21:15)
--- NOTE | 2022-01-01 21:15 | NUR ---
Rapid Response Note: Rapid Response called for tachycardia, 194; Preethi PATIENT CARE NURSING ASSISTANT, initially responded. Upon arrival, patient sleepy but arousable/appropriate, patient denied chest pain or shortness of breath, reviewed tele strip which showed SVT. EKG ordered stat and while placing leads on patient, patient spontaneously converted to ST, rate low 100's. EKG reviewed--rhythm regular, rate 101, without any ST/T-wave abnormality. Patient is sleeping and arouses to his name; alert/oriented to self, knows he is in the hospital but unsure which and does not recall some recent events. Post conversion, patient did complain of nausea. After conversation, patient immediately starts to doze. Vital signs at 0 HR 109, BP 146/88, RR 20 and O2 saturation 96%. Will order CBC, BMP and Mg.Dr Dirk aviles, returned page, notified of above. Orders received for Zofran 4MG IVP Q4HRS and transfer to CVC bed. Patient and RN notified of orders, all questions answered. Addendum: 01/01/22 at 2138 by IVANNA KEBEDE RN Amended: Links added.
[2022-01-01 21:48] LABS: BASO % 0 % (0-3); EOS % 0 % (0-3); HEMATOCRIT 39.3 % (39.0-53.0); HEMOGLOBIN 12.5 g/dL (13.0-17.5); LYMPH # 0.9 x10^3/uL (1.0-4.8); LYMPH % 12 % (24-48); MEAN CORPUSCULAR HEMOGLOBIN 27 pg (25-35); MEAN CORPUSCULAR HGB CONC 32 g/dL (31-37); MEAN CORPUSCULAR VOLUME 84 fL (79-100); MONO # 1.4 x10^3/uL (0.0-1.1); MONO % 17 % (0-9); NEUT # 5.6 x10^3/uL (1.8-7.7); NEUT % 71 % (31-73); PLATELET COUNT 187 x10^3/uL (140-400); RED BLOOD COUNT 4.68 x10^6/uL (4.30-5.70); RED CELL DISTRIBUTION WIDTH 15.6 % (11.5-14.5); WHITE BLOOD COUNT 7.9 x10^3/uL (4.0-11.0)
[2022-01-01 22:01] LABS: CALCIUM 8.1 mg/dL (8.5-10.1); CREATININE 1.5 mg/dL (0.7-1.3); GFR 62.1; POTASSIUM 3.9 mmol/L (3.5-5.1)
[2022-01-01] MEDS ORDERED: ADENOSINE 6 MG/2 ML VIAL. IV ONE ×3 (23:15)
--- NOTE | 2022-01-01 23:25 | NUR ---
Rapid Response Note: Patient's HR again > 200 while this RN on unit; rhythm same as previous Rapid Response--SVT. Patient resting in bed, more alert and able to cough/bear down on command multiple times without change in rhythm. Reviewed lab results drawn prior to transfer, all WNL or improved, vital signs--BP 144/86. HR 204. RR 20, O2 Sat 94%. Patient denied chest pain or shortness of breath but did state he was feeling anxious. Called Dr Ferris at 2305, notified of consult, recent episode of tachycardia, EKG, vital signs and lab work. Orders received to give Adenosine 12MG IVP x1 and call with results. After explanation to patient of plan and side effects of med, Adenosine was given at 2312 per protocol. Patient's HR decreased to 74 then increase back to 110's; repeat BP 142/88. Called Dr Ferris at 2320, notified of above, orders received to give Metoprolol 25MG PO now and BID and Metoprolol 5MG IVP now and Q4HRS PRN. Notified patient of plan, patient reports understanding and reports feeling better. Patient remains on the unit. Addendum: 01/02/22 at 0046 by IVANNA KEBEDE RN Amended: Links added.
[2022-01-01] MEDS ORDERED: METOPROLOL IV PUSH 5 MG/5 ML VIAL. IVP PRN (23:30)
[2022-01-01] MEDS ORDERED: METOPROLOL IV PUSH 5 MG/5 ML VIAL. IVP ONE (23:30)
[2022-01-01] MEDS: METOPROLOL TART IMMED RELEASE 25 MG TABLET. PO SCH (23:41)
[2022-01-02] VITALS (7 sets, daily range): BP systolic 161–183; BP diastolic 98–113
[2022-01-02] MEDS: IV NORMAL SALINE 1000ML BAG 1,000 ML IV SCH ×2 (00:53→20:01)
[2022-01-02] MEDS: MORPHINE SULFATE 2 MG/ML INJ. IVP PRN ×2 (04:37→09:55)
[2022-01-02 06:10] LABS: ALBUMIN 2.6 g/dL (3.4-5.0); CALCIUM 8.5 mg/dL (8.5-10.1); CREATININE 1.6 mg/dL (0.7-1.3); GFR 57.6; PHOSPHORUS 2.6 mg/dL (2.6-4.7)
--- NOTE | 2022-01-02 08:17 | PDOC ---
[employer] PROGRESS NOTE Date of Service DOS: DATE: 01/02/22 TIME: 08:04 Chief Complaint Chief Complaint Hyperkalemia requiring emergent dialysis X1 MAYRA Tachycardia Pancreatitis secondary to hypertriglyceridemia and severe electrolyte disturbance with hyponatremia, hypocalcemia, hypophosphatemia, transaminitis. History of Present Illness History of Present Illness 01/02: Been stooling. Still with abdominal distention. He is asking for orange juice and has been on clears. Still very tachycardic. Weak 01/01: Patient now transferred out of ICU to the monitored floor. He is more alert wants to drink some orange juice. I rechecked a lipase level is coming down to the 300s we will try clear liquid diet. His creatinine is up to 2 but potassium still within normal limits. 12/31: Patient seen in ICU. Somewhat somnolent today, possibly due to pain medication. When I pressed on his stomach he does wince and admit some tenderness. Apparently patient is not an alcohol drinker, but on admission triglycerides were 2004. We will repeat triglycerides. Discussed with RN, if triglycerides significant elevated (>1000) we can initiate insulin drip check triglycerides every 6 hours. Will stop insulin drip once triglycerides <500. Continue IV fluids. He will likely discharge on fenofibrate and omega-3 fatty acids. 30 minutes critical care time spent reviewing charts, reviewing labs, reviewing imaging, discussion with RN. 12/30: Patient seen and examined. He is tachycardic this morning. He got emergent dialysis yesterday. Potassium now down to 4.3. We have placed a Jones Vitals/I&O Vitals/I&O: Vital Signs Date Time Temp Pulse Resp B/P (MAP) Pulse Ox O2 Delivery O2 Flow Rate FiO2 01/02/22 04:37 18 01/02/22 02:21 99.4 105 164/107 (126) 94 Nasal Cannula 2.0 99.4 I & O 01/01/22 01/01/22 01/02/22 15:00 23:00 07:00 Intake Total 200 ml Output Total 2500 ml 650 ml Balance -2500 ml -450 ml Physical Exam General: Alert, No acute distress, Other (Less lethargic wants to drink orange juice) Heart: Other (Tachycardic) Lungs: Clear Abdomen: Normal bowel sounds Extremities: No clubbing Skin: No rashes Labs Labs: Laboratory Tests Test 01/01/22 11:53 01/01/22 17:10 01/01/22 20:25 01/01/22 21:40 Glucose (Fingerstick) 170 mg/dL (70-99) 159 mg/dL (70-99) 161 mg/dL (70-99) White Blood Count 7.9 x10^3/uL (4.0-11.0) Red Blood Count 4.68 x10^6/uL (4.30-5.70) Hemoglobin 12.5 g/dL (13.0-17.5) Hematocrit 39.3 % (39.0-53.0) Mean Corpuscular Volume 84 fL (79-100) Mean Corpuscular Hemoglobin 27 pg (25-35) Mean Corpuscular Hemoglobin Concent 32 g/dL (31-37) Red Cell Distribution Width 15.6 % (11.5-14.5) Platelet Count 187 x10^3/uL (140-400) Neutrophils (%) (Auto) 71 % (31-73) Lymphocytes (%) (Auto) 12 % (24-48) Monocytes (%) (Auto) 17 % (0-9) Eosinophils (%) (Auto) 0 % (0-3) Basophils (%) (Auto) 0 % (0-3) Neutrophils # (Auto) 5.6 x10^3/uL (1.8-7.7) Lymphocytes # (Auto) 0.9 x10^3/uL (1.0-4.8) Monocytes # (Auto) 1.4 x10^3/uL (0.0-1.1) Eosinophils # (Auto) 0.0 x10^3/uL (0.0-0.7) Basophils # (Auto) 0.0 x10^3/uL (0.0-0.2) Sodium Level 137 mmol/L (136-145) Potassium Level 3.9 mmol/L (3.5-5.1) Chloride Level 103 mmol/L (98-107) Carbon Dioxide Level 25 mmol/L (21-32) Anion Gap 9 (6-14) Blood Urea Nitrogen 32 mg/dL (8-26) Creatinine 1.5 mg/dL (0.7-1.3) Estimated GFR (Cockcroft-Gault) 62.1 Glucose Level 153 mg/dL (70-99) Calcium Level 8.1 mg/dL (8.5-10.1) Magnesium Level 3.0 mg/dL (1.8-2.4) Test 01/02/22 05:00 Sodium Level 137 mmol/L (136-145) Potassium Level 4.0 mmol/L (3.5-5.1) Chloride Level 103 mmol/L (98-107) Carbon Dioxide Level 25 mmol/L (21-32) Anion Gap 9 (6-14) Blood Urea Nitrogen 34 mg/dL (8-26) Creatinine 1.6 mg/dL (0.7-1.3) Estimated GFR (Cockcroft-Gault) 57.6 Glucose Level 209 mg/dL (70-99) Calcium Level 8.5 mg/dL (8.5-10.1) Phosphorus Level 2.6 mg/dL (2.6-4.7) Albumin 2.6 g/dL (3.4-5.0) Assessment and Plan Assessmemt and Plan Problems Medical Problems: (1) Hypocalcemia Status: Acute (2) Intractable abdominal pain Status: Acute (3) Pancreatitis Status: Acute Comment Review of Relevant I have reviewed the following items goyo (where applicable) has been applied. Medications: Current Medications Medications (Trade) Dose Ordered Sig/Raul Route PRN Reason Start Time Stop Time Status Last Admin Dose Admin Amlodipine Besylate (Norvasc) 10 mg DAILY PO 01/01/22 09:00 01/01/22 08:55 Sodium Phosphate 15 mmol/Sodium Chloride 105 ml @ 105 mls/hr 1X ONCE IV 01/01/22 13:00 01/01/22 13:59 DC 01/01/22 12:23 Ondansetron HCl (Zofran) 4 mg PRN Q6HRS PRN IVP NAUSEA/VOMITING 01/01/22 21:15 01/01/22 23:20 Adenosine (Adenocard) 12 mg 1X ONCE IV 01/01/22 23:15 01/01/22 23:16 DC 01/01/22 23:12 Metoprolol Tartrate (Lopressor Vial) 5 mg 1X ONCE IVP 01/01/22 23:30 01/01/22 23:31 DC 01/01/22 23:40 Metoprolol Tartrate (Lopressor) 25 mg BID PO 01/01/22 23:30 01/01/22 23:41 Justifications for Admission Other Justification MIYA CARRANZA MD Jan 02, 2022 08:17
[2022-01-02] MEDS: PANTOPRAZOLE IV PUSH 40 MG VIAL. IVP SCH (08:39)
[2022-01-02] MEDS: METOPROLOL TART IMMED RELEASE 25 MG TABLET. PO SCH (08:40)
--- NOTE | 2022-01-02 09:28 | PDOC ---
DATE OF SERVICE DATE: 01/02/22 TIME: 09:28 SUBJECTIVE ROS States feeling better Denies N/V, still has mild abdominal pain but reports abdomen not as tight OBJECTIVE Vital Signs Vital Signs Date Time Temp Pulse Resp B/P (MAP) Pulse Ox O2 Delivery O2 Flow Rate FiO2 01/02/22 08:40 103 183/113 01/02/22 07:00 98.3 21 93 Nasal Cannula 2.0 98.3 I & 0 Intake and Output 01/02/22 07:00 Intake Total 200 ml Output Total 3150 ml Balance -2950 ml Intake Oral 200 ml Output Urine Total 3150 ml # Bowel Movements 1 PHYSICAL EXAM Physical Exam General- NAD HEEN OM moist Neck Supple Lungs Decreased at bases CV S1S2, Abd Obese, soft, NT Ext Ne LE edema Neuro Grossly normal Jones + , No CVA or SP tenderness Psych Cooperative, DIAGNOSIS/ASSESSMENT DIAGNOSIS/ASSESSMENT Assessment & Plan MAYRA - Creat normal at presentation in the ER on 12/28 , CT scan unremarkable Kidneys and Bladder , UA unremarkable Suspected etiology ATN /Intravascular depletion/Pancreatitis . CT scan with IV contrast on 12/28. Mildly elevated CK at presentation , Improved Creatinine trended down - stable today , Supportive care, maintain fluid balance . Tachycardia - Consult cardiology HyperKalemia - Emergent dialysis 12/29 x1 . K normal today HypoNatremia- POA- resolved HypoPhos- replaced IV 12/31 on 01/01 . Normal today HypoCalcemia - 2/2 Pancreatitis. Normal now Edematous pancreatitis- c/o abdominal pain and tenderness . GI consulted Diffuse hepatic steatosis per GI COMMENT/RELEVANT DATA Meds Current Medications Medications (Trade) Dose Ordered Sig/Arul Start Time Stop Time Status Last Admin Dose Admin Adenosine (Adenocard) 12 mg 1X ONCE 01/01/22 23:15 01/01/22 23:16 DC 01/01/22 23:12 12 MG Albumin Human 200 ml @ 200 mls/hr 1X PRN PRN 12/29/21 15:15 12/29/21 21:14 DC Amlodipine Besylate (Norvasc) 10 mg DAILY 01/01/22 09:00 01/02/22 08:39 10 MG Calcium Gluconate (Calcium Gluconate) 1,000 mg 1X ONCE 12/28/21 19:30 12/28/21 19:34 DC 12/28/21 20:23 1,000 MG Dextrose (Dextrose 50%-Water Syringe) 12.5 gm PRN Q15MIN PRN 12/29/21 15:15 12/29/21 15:11 DC Dextrose (Iv Dextrose 5%) 250 ml PRN Q15MIN PRN 12/29/21 15:15 Fentanyl Citrate (Fentanyl 2ml Vial) 50 mcg 1X ONCE 12/28/21 14:45 12/28/21 14:46 DC 12/28/21 14:58 50 MCG Hydromorphone HCl (Dilaudid) 1 mg 1X ONCE 12/28/21 18:15 12/28/21 18:16 DC 12/28/21 18:16 1 MG Info (CONTRAST GIVEN -- Rx MONITORING) 1 each PRN DAILY PRN 12/28/21 17:15 12/30/21 17:14 DC Info (PHARMACY MONITORING -- do not chart) 1 each PRN DAILY PRN 12/29/21 15:15 Insulin Human Lispro (HumaLOG) 0-9 UNITS TIDWMEALS 01/02/22 12:00 Iohexol (Omnipaque 300 Mg/ml) 75 ml 1X ONCE 12/28/21 17:15 12/28/21 17:16 DC 12/28/21 17:15 75 ML Lidocaine HCl (Buffered Lidocaine 1%) 3 ml 1X ONCE 12/29/21 15:45 12/29/21 15:46 DC 12/29/21 15:42 5 ML Metoprolol Tartrate (Lopressor Vial) 5 mg 1X ONCE 01/01/22 23:30 01/01/22 23:31 DC 01/01/22 23:40 5 MG Metoprolol Tartrate (Lopressor) 25 mg BID 01/01/22 23:30 01/02/22 08:40 25 MG Morphine Sulfate (Morphine Sulfate) 2 mg PRN Q2HR PRN 12/29/21 23:30 01/02/22 04:37 2 MG Ondansetron HCl (Zofran) 4 mg PRN Q6HRS PRN 01/01/22 21:15 01/01/22 23:20 4 MG Pantoprazole Sodium (PROTONIX VIAL for IV PUSH) 40 mg DAILYAC 12/29/21 14:00 01/02/22 08:39 40 MG Sodium Chloride 1,000 ml @ 50 mls/hr Q20H 12/30/21 12:30 01/02/22 00:53 50 MLS/HR Sodium Chloride (Normal Saline Flush) 10 ml 1X PRN PRN 12/29/21 15:15 12/30/21 15:14 DC Sodium Phosphate 15 mmol/Sodium Chloride 105 ml @ 105 mls/hr 1X ONCE 01/01/22 13:00 01/01/22 13:59 DC 01/01/22 12:23 105 MLS/HR Sodium Phosphate 20 mmol/Sodium Chloride 256.6667 ml @ 64.167 m... 1X ONCE 12/31/21 11:00 12/31/21 14:59 DC 12/31/21 11:02 64.167 MLS/HR Lab Laboratory Tests Test 01/01/22 11:53 01/01/22 17:10 01/01/22 20:25 01/01/22 21:40 Glucose (Fingerstick) 170 mg/dL (70-99) 159 mg/dL (70-99) 161 mg/dL (70-99) White Blood Count 7.9 x10^3/uL (4.0-11.0) Red Blood Count 4.68 x10^6/uL (4.30-5.70) Hemoglobin 12.5 g/dL (13.0-17.5) Hematocrit 39.3 % (39.0-53.0) Mean Corpuscular Volume 84 fL (79-100) Mean Corpuscular Hemoglobin 27 pg (25-35) Mean Corpuscular Hemoglobin Concent 32 g/dL (31-37) Red Cell Distribution Width 15.6 % (11.5-14.5) Platelet Count 187 x10^3/uL (140-400) Neutrophils (%) (Auto) 71 % (31-73) Lymphocytes (%) (Auto) 12 % (24-48) Monocytes (%) (Auto) 17 % (0-9) Eosinophils (%) (Auto) 0 % (0-3) Basophils (%) (Auto) 0 % (0-3) Neutrophils # (Auto) 5.6 x10^3/uL (1.8-7.7) Lymphocytes # (Auto) 0.9 x10^3/uL (1.0-4.8) Monocytes # (Auto) 1.4 x10^3/uL (0.0-1.1) Eosinophils # (Auto) 0.0 x10^3/uL (0.0-0.7) Basophils # (Auto) 0.0 x10^3/uL (0.0-0.2) Sodium Level 137 mmol/L (136-145) Potassium Level 3.9 mmol/L (3.5-5.1) Chloride Level 103 mmol/L (98-107) Carbon Dioxide Level 25 mmol/L (21-32) Anion Gap 9 (6-14) Blood Urea Nitrogen 32 mg/dL (8-26) Creatinine 1.5 mg/dL (0.7-1.3) Estimated GFR (Cockcroft-Gault) 62.1 Glucose Level 153 mg/dL (70-99) Calcium Level 8.1 mg/dL (8.5-10.1) Magnesium Level 3.0 mg/dL (1.8-2.4) Test 01/02/22 05:00 01/02/22 08:26 Sodium Level 137 mmol/L (136-145) Potassium Level 4.0 mmol/L (3.5-5.1) Chloride Level 103 mmol/L (98-107) Carbon Dioxide Level 25 mmol/L (21-32) Anion Gap 9 (6-14) Blood Urea Nitrogen 34 mg/dL (8-26) Creatinine 1.6 mg/dL (0.7-1.3) Estimated GFR (Cockcroft-Gault) 57.6 Glucose Level 209 mg/dL (70-99) Calcium Level 8.5 mg/dL (8.5-10.1) Phosphorus Level 2.6 mg/dL (2.6-4.7) Albumin 2.6 g/dL (3.4-5.0) Glucose (Fingerstick) 162 mg/dL (70-99) Results All relevant outside records, renal labs, imaging studies, telemetry/EKG's were reviewed. Justicifation of Admission Dx: Justifications for Admission: Justification of Admission Dx: N/A DOMO SANCHES MD Jan 02, 2022 09:28
--- NOTE | 2022-01-02 11:14 | PDOC ---
Date of Service: DATE: 01/02/22 TIME: 11:05 Subjective: Subjective: "I pooped." Calling to be cleaned up. Says abdominal pain is "steady." Objective: Objective: Events overnight reviewed, pending cardiology consult for SVT. Vital Signs: Vital Signs Date Time Temp Pulse Resp B/P (MAP) Pulse Ox O2 Delivery O2 Flow Rate FiO2 01/02/22 09:55 24 96 2.0 01/02/22 08:40 103 183/113 01/02/22 07:00 98.3 Nasal Cannula 98.3 Labs: Laboratory Tests Test 01/01/22 11:53 01/01/22 17:10 01/01/22 20:25 01/01/22 21:40 Glucose (Fingerstick) 170 mg/dL 159 mg/dL 161 mg/dL White Blood Count 7.9 x10^3/uL Red Blood Count 4.68 x10^6/uL Hemoglobin 12.5 g/dL Hematocrit 39.3 % Mean Corpuscular Volume 84 fL Mean Corpuscular Hemoglobin 27 pg Mean Corpuscular Hemoglobin Concent 32 g/dL Red Cell Distribution Width 15.6 % Platelet Count 187 x10^3/uL Neutrophils (%) (Auto) 71 % Lymphocytes (%) (Auto) 12 % Monocytes (%) (Auto) 17 % Eosinophils (%) (Auto) 0 % Basophils (%) (Auto) 0 % Neutrophils # (Auto) 5.6 x10^3/uL Lymphocytes # (Auto) 0.9 x10^3/uL Monocytes # (Auto) 1.4 x10^3/uL Eosinophils # (Auto) 0.0 x10^3/uL Basophils # (Auto) 0.0 x10^3/uL Sodium Level 137 mmol/L Potassium Level 3.9 mmol/L Chloride Level 103 mmol/L Carbon Dioxide Level 25 mmol/L Anion Gap 9 Blood Urea Nitrogen 32 mg/dL Creatinine 1.5 mg/dL Estimated GFR (Cockcroft-Gault) 62.1 Glucose Level 153 mg/dL Calcium Level 8.1 mg/dL Magnesium Level 3.0 mg/dL Test 01/02/22 05:00 01/02/22 08:26 Sodium Level 137 mmol/L Potassium Level 4.0 mmol/L Chloride Level 103 mmol/L Carbon Dioxide Level 25 mmol/L Anion Gap 9 Blood Urea Nitrogen 34 mg/dL Creatinine 1.6 mg/dL Estimated GFR (Cockcroft-Gault) 57.6 Glucose Level 209 mg/dL Calcium Level 8.5 mg/dL Phosphorus Level 2.6 mg/dL Albumin 2.6 g/dL Glucose (Fingerstick) 162 mg/dL PE: GEN: NAD - has gown pulled up LUNGS: clear, NC 2L HEART: tachycardic ABD: still pretty quiet, upper fullness, mild discomfort NEURO/PSYCH: seems a bit fuzzy - stable from yesterday A/P: Severe pancreatitis w/ hypertriglyceridemia MAYRA - better HTN, tachycardia -- Continue support GI-davila. Can try some clears. May need to consider TPN, interval CT early next week. Justicifation of Admission Dx: Justifications for Admission: Justification of Admission Dx: N/A LUH BAHENA Jan 02, 2022 11:14
[2022-01-02 11:47] LABS: ALBUMIN 2.8 g/dL (3.4-5.0); DIRECT BILIRUBIN 0.7 mg/dL (0.0-0.2); TOTAL BILIRUBIN 1.4 mg/dL (0.2-1.0); TOTAL PROTEIN 6.7 g/dL (6.4-8.2)
--- NOTE | 2022-01-02 11:58 | EKG ---
[facility] [address] [place] [address] Test Date: 2022-01-01 Test Time: 19:46:18 Pat Name: DIANA GOLDSTEIN Department: Room: [facility] Gender: M [employer] Work[employer]: ADENIKE : 1980 Requested By: MIYA LOZA Order Number: [id number] Reading MD: Nino Aguilar Measurements Intervals [place] Rate: 101 P: 41 MD: 154 QRS: 18 QRSD: 92 T: 50 QT: 340 QTc: 442 Interpretive Statements SINUS TACHYCARDIA LEFT ATRIAL ABNORMALITY Electronically Signed On 01-03-2022 21:25:35 CDT by Nino Aguilar
[2022-01-02] MEDS: INSULIN LISPRO 300 UNITS/3 ML VIAL. SQ SCH ×2 (12:00→17:00)
--- NOTE | 2022-01-02 12:08 | NUR ---
Insulin not given for BS 154, Pt. on clear liquid diet
[2022-01-02] MEDS ORDERED: hydrALAZINE 20 MG/ML VIAL. IVP ONE (12:15)
[2022-01-02] MEDS ORDERED: METOPROLOL TART IMMED RELEASE 25 MG TABLET. PO ONE (12:30)
--- NOTE | 2022-01-02 12:34 | PDOC2 ---
DARVIN CHOI GAS LEAK INSPECTOR HELPER 01/02/22 1234: CARDIAC CONSULT DATE OF CONSULT Date of Consult DATE: 01/02/22 TIME: 12:08 REASON FOR CONSULT Reason for Consult: SVT REFERRING PHYSICIAN Referring Physician: Angel SOURCE Source: Chart review, Patient HISTORY OF PRESENT ILLNESS HISTORY OF PRESENT ILLNESS This is a 41 yo male admitted for complains of abdominal pain and vomiting. Further testing revealed severe pancreatitis, high TG and MAYRA being treated by GI and nephrology. Last night he felt palpitations and noted with SVT. No complains of chest pain or SOA. No further nausea or abdominal pain. No prior hx of DM, HTN or DLP. He does not take any medication at home and denies heavy ETOH use. 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 ALCOHOL: none Drugs: None Lives: Alone CURRENT MEDICATIONS CURRENT MEDICATIONS Current Medications Medications (Trade) Dose Ordered Sig/Raul Route PRN Reason Start Time Stop Time Status Last Admin Dose Admin Sodium Phosphate 15 mmol/Sodium Chloride 105 ml @ 105 mls/hr 1X ONCE IV 01/01/22 13:00 01/01/22 13:59 DC 01/01/22 12:23 Ondansetron HCl (Zofran) 4 mg PRN Q6HRS PRN IVP NAUSEA/VOMITING 01/01/22 21:15 01/01/22 23:20 Adenosine (Adenocard) 12 mg 1X ONCE IV 01/01/22 23:15 01/01/22 23:16 DC 01/01/22 23:12 Metoprolol Tartrate (Lopressor Vial) 5 mg 1X ONCE IVP 01/01/22 23:30 01/01/22 23:31 DC 01/01/22 23:40 Metoprolol Tartrate (Lopressor) 25 mg BID PO 01/01/22 23:30 01/02/22 08:40 ALLERGIES ALLERGIES: Coded Allergies: No Known Drug Allergies (Unverified , 12/28/21) ROS Review of System 14 point ROS evalulated with pertinent positives noted per HPI PHYSICAL EXAM General: Alert, Oriented X3, Cooperative, No acute distress HEENT: Mucous membr. moist/pink Lungs: Other (diminished) Heart: Regular rate (SR), Normal S1, Normal S2, No murmurs Abdomen: Soft, No tenderness, Other (protuberant abd) Extremities: No cyanosis, No edema Neuro: Normal speech, Sensation intact Psych/Mental Status: Mental status NL, Mood NL MUSCULOSKELETAL: Full range of motion without pain VITALS/I&O VITALS/I&O: Vital Signs Date Time Temp Pulse Resp B/P (MAP) Pulse Ox O2 Delivery O2 Flow Rate FiO2 01/02/22 11:00 98.7 94 24 171/108 (129) 96 Nasal Cannula 2.0 98.7 I & O 0 01/01/22 01/01/22 01/02/22 15:00 23:00 07:00 Intake Total 200 ml Output Total 2500 ml 650 ml Balance -2500 ml -450 ml LABS Lab: Laboratory Tests Test 01/01/22 17:10 01/01/22 20:25 01/01/22 21:40 01/02/22 05:00 Glucose (Fingerstick) 159 mg/dL (70-99) H 161 mg/dL (70-99) H White Blood Count 7.9 x10^3/uL (4.0-11.0) Red Blood Count 4.68 x10^6/uL (4.30-5.70) Hemoglobin 12.5 g/dL (13.0-17.5) L Hematocrit 39.3 % (39.0-53.0) Mean Corpuscular Volume 84 fL (79-100) Mean Corpuscular Hemoglobin 27 pg (25-35) Mean Corpuscular Hemoglobin Concent 32 g/dL (31-37) Red Cell Distribution Width 15.6 % (11.5-14.5) H Platelet Count 187 x10^3/uL (140-400) Neutrophils (%) (Auto) 71 % (31-73) Lymphocytes (%) (Auto) 12 % (24-48) L Monocytes (%) (Auto) 17 % (0-9) H Eosinophils (%) (Auto) 0 % (0-3) Basophils (%) (Auto) 0 % (0-3) Neutrophils # (Auto) 5.6 x10^3/uL (1.8-7.7) Lymphocytes # (Auto) 0.9 x10^3/uL (1.0-4.8) L Monocytes # (Auto) 1.4 x10^3/uL (0.0-1.1) H Eosinophils # (Auto) 0.0 x10^3/uL (0.0-0.7) Basophils # (Auto) 0.0 x10^3/uL (0.0-0.2) Sodium Level 137 mmol/L (136-145) 137 mmol/L (136-145) Potassium Level 3.9 mmol/L (3.5-5.1) 4.0 mmol/L (3.5-5.1) Chloride Level 103 mmol/L (98-107) 103 mmol/L (98-107) Carbon Dioxide Level 25 mmol/L (21-32) 25 mmol/L (21-32) Anion Gap 9 (6-14) 9 (6-14) Blood Urea Nitrogen 32 mg/dL (8-26) H 34 mg/dL (8-26) H Creatinine 1.5 mg/dL (0.7-1.3) H 1.6 mg/dL (0.7-1.3) H Estimated GFR (Cockcroft-Gault) 62.1 57.6 Glucose Level 153 mg/dL (70-99) H 209 mg/dL (70-99) H Calcium Level 8.1 mg/dL (8.5-10.1) L 8.5 mg/dL (8.5-10.1) Magnesium Level 3.0 mg/dL (1.8-2.4) H Phosphorus Level 2.6 mg/dL (2.6-4.7) Total Bilirubin 1.4 mg/dL (0.2-1.0) H Direct Bilirubin 0.7 mg/dL (0.0-0.2) H Aspartate Amino Transferase (AST) 33 U/L (15-37) Alanine Aminotransferase (ALT) 15 U/L (16-63) L Alkaline Phosphatase 63 U/L (46-116) Total Protein 6.7 g/dL (6.4-8.2) Albumin 2.8 g/dL (3.4-5.0) L Test 01/02/22 08:26 01/02/22 11:35 Glucose (Fingerstick) 162 mg/dL (70-99) H 154 mg/dL (70-99) H Laboratory Tests 01/01/22 21:40 Laboratory Tests 01/01/22 21:40 01/02/22 05:00 ASSESSMENT/PLAN ASSESSMENT/PLAN 1. Severe Pancreatitis 2. Hypertriglyceridemia 3. Severe MAYRA with hyperkalemia: x1 emergent HD 4. Arrhythmia: initially with sustained wide complex tachycardia treated with metoprolol then converted to narrow complex treated with adenosine then SR 5. Rhabdomyolysis 6. HTN: labile 7. New DM2 finding? 8. Tobaccoism Recommendations 1. Continue norvasc. Increase metoprolol. labetolol IV PRN. Monitor rhythm 2. TTE, TSH, and FLP 3. 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 Smoking cessation 5. Future statin, await FLP MICHAELA HODGES MD 01/02/22 7326: CARDIAC CONSULT ASSESSMENT/PLAN ASSESSMENT/PLAN Pt. seen and examined. Agree with above [employer] READING TEACHER note. Patient had classic SVT with transient SVT with aberrancy. No clear VT noted. He has severe metabolic derangements. Needs correction of these issues and then consider outpt loop recorder. Await echo. Thanks DARVIN CHOI G[employer] LEAK INSPECTOR HELPER Jan 02, 2022 12:34 MICHAELA HODGES MD Jan 02, 2022 23:16
[2022-01-02] MEDS ORDERED: LABETALOL 20 MG/4 ML DISP.SYRIN. IVP PRN (12:45)
[2022-01-02 13:04] LABS: CHOLESTEROL/HDL RATIO 10.8
--- NOTE | 2022-01-02 14:49 | NUR ---
SS following up with discharge planning. SS reviewed pt chart and discussed with pt RN. Pt is currently requiring oxygen at two liters nasal canula. Self pay. Med Assist following. Cardiology consulted. GI and Nephrology following. Clear liquid diet. SS will continue to follow for discharge planning.
--- NOTE | 2022-01-02 17:25 | NUR ---
Pt. on clear liquid diet. Sliding scale insulin not given for BS 167
[2022-01-02] MEDS: NITROGLYCERIN OINT 1 GM PACKET. TP SCH ×2 (17:37→22:52)
[2022-01-02] MEDS: ENOXAPARIN 40 MG/0.4 ML SYRINGE. SQ SCH (17:37)
[2022-01-02] MEDS: METOPROLOL TART IMMED RELEASE 50 MG TABLET. PO SCH (20:02)
[2022-01-02] MEDS: HYDROcodone/APAP 5/325MG 1 TAB TABLET PO PRN (22:50)
[2022-01-03 02:35] VITALS: BP 188/102
[2022-01-03 03:33] LABS: CALCIUM 8.2 mg/dL (8.5-10.1); CREATININE 1.6 mg/dL (0.7-1.3); GFR 57.6; POTASSIUM 4.1 mmol/L (3.5-5.1)
[2022-01-03 03:39] LABS: ALBUMIN 2.6 g/dL (3.4-5.0); DIRECT BILIRUBIN 1.2 mg/dL (0.0-0.2); TOTAL BILIRUBIN 1.9 mg/dL (0.2-1.0); TOTAL PROTEIN 6.5 g/dL (6.4-8.2)
[2022-01-03] MEDS: PANTOPRAZOLE IV PUSH 40 MG VIAL. IVP SCH (05:16)
[2022-01-03] MEDS: NITROGLYCERIN OINT 1 GM PACKET. TP SCH ×3 (05:24→16:40)
[2022-01-03 07:00] VITALS: BP 188/104
[2022-01-03] MEDS: METOPROLOL TART IMMED RELEASE 50 MG TABLET. PO SCH ×2 (08:46→20:32)
[2022-01-03] MEDS: INSULIN LISPRO 300 UNITS/3 ML VIAL. SQ SCH ×3 (08:50→16:42)
[2022-01-03] MEDS ORDERED: ADENOSINE 6 MG/2 ML VIAL. IV ONE (09:00)
--- NOTE | 2022-01-03 09:24 | EKG ---
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
--- NOTE | 2022-01-03 09:30 | NUR ---
Pt insisted to use the bedside commode, upon getting to BSC, pt HR went to 213. Pt instructed to bear down. Pt also asymptomatic during this episode. IVP metoprolol PRN given. Rapid response called and new orders for adenosine given. Pt received new IV in right AC. Adenosine 6mg given and HR in upper 90's. EKG's obtained and placed in chart. Pt stable and comfortable in bed at this time.
[2022-01-03 10:52] VITALS: BP 160/108
--- NOTE | 2022-01-03 11:09 | PDOC ---
PROGRESS NOTES Date of Service: DATE: 01/03/22 TIME: 11:09 Subjective Subjective Patient had another episode of SVT with heart rate in 200s, terminated with intravenous adenosine bolus. Objective Objective Vital Signs Date Time Temp Pulse Resp B/P (MAP) Pulse Ox O2 Delivery O2 Flow Rate FiO2 01/03/22 10:52 99.5 85 20 160/108 (125) 96 Nasal Cannula 2.0 99.5 Intake and Output 01/03/22 07:00 Intake Total 200 ml Output Total 1750 ml Balance -1550 ml Intake Oral 200 ml Output Urine Total 1750 ml Physical Exam Abdomen: Soft, No tenderness, Other (protuberant abd) Heart: Regular rate (SR), Normal S1, Normal S2, No murmurs Extremities: No cyanosis, No edema General: Alert, Oriented X3, Cooperative, No acute distress HEENT: Mucous membr. moist/pink Lungs: Other (diminished) MUSCULOSKELETAL: Full range of motion without pain Neuro: Normal speech, Sensation intact Psych/Mental Status: Mental status NL, Mood NL Skin: No rashes Assessment Assessment 1. Severe Pancreatitis: Treat per GI team 2. Hypertriglyceridemia: Consider initiation of therapy once pancreatitis resolves 3. Severe MAYRA with hyperkalemia: x1 emergent HD: Nephrology following 4. Paroxysmal supraventricular tachycardia: Patient had another recurrent episode despite being on metoprolol. Start flecainide for antiarrhythmic therapy. 5. Rhabdomyolysis 6. HTN: Blood pressure elevated. Increase metoprolol dose to 100 mg twice daily. 7. New DM2 finding 8. Tobaccoism Plan Plan of Care Problems Medical Problems: (1) Hypocalcemia Status: Acute (2) Intractable abdominal pain Status: Acute (3) Pancreatitis Status: Acute Comment Review of Relevant I have reviewed the following items goyo (where applicable) has been applied. Labs Laboratory Tests Test 01/02/22 11:35 01/02/22 15:58 01/02/22 20:02 01/03/22 03:00 Glucose (Fingerstick) 154 mg/dL (70-99) 167 mg/dL (70-99) 185 mg/dL (70-99) Sodium Level 137 mmol/L (136-145) Potassium Level 4.1 mmol/L (3.5-5.1) Chloride Level 103 mmol/L (98-107) Carbon Dioxide Level 24 mmol/L (21-32) Anion Gap 10 (6-14) Blood Urea Nitrogen 34 mg/dL (8-26) Creatinine 1.6 mg/dL (0.7-1.3) Estimated GFR (Cockcroft-Gault) 57.6 Glucose Level 154 mg/dL (70-99) Calcium Level 8.2 mg/dL (8.5-10.1) Total Bilirubin 1.9 mg/dL (0.2-1.0) Direct Bilirubin 1.2 mg/dL (0.0-0.2) Aspartate Amino Transf (AST/SGOT) 50 U/L (15-37) Alanine Aminotransferase (ALT/SGPT) 31 U/L (16-63) Alkaline Phosphatase 62 U/L (46-116) Total Protein 6.5 g/dL (6.4-8.2) Albumin 2.6 g/dL (3.4-5.0) Lipase 495 U/L (73-393) Test 01/03/22 07:21 Glucose (Fingerstick) 177 mg/dL (70-99) Medications Current Medications Acetaminophen/ Hydrocodone Bitart (Lortab 5/325) 1 tab PRN Q3HRS PRN PO PAIN Last administered on 01/02/22at 22:50; Start 01/02/22 at 22:45 Adenosine (Adenocard) 6 mg 1X ONCE IV Last administered on 01/03/22at 09:01; Start 01/03/22 at 09:00; Stop 01/03/22 at 09:02; Status DC Enoxaparin Sodium (Lovenox 40mg Syringe) 40 mg Q24H SQ Last administered on 01/02/22at 17:37; Start 01/02/22 at 17:00 Hydralazine HCl (Apresoline Inj) 10 mg 1X ONCE IVP Last administered on 01/02/22at 12:32; Start 01/02/22 at 12:15; Stop 01/02/22 at 12:16; Status DC Insulin Human Lispro (HumaLOG) 0-9 UNITS TIDWMEALS SQ Last administered on at 08:50; Start 01/02/22 at 12:00 Labetalol HCl (Normodyne Iv Push) 20 mg PRN Q2HR PRN IVP HYPERTENSION; Start 01/02/22 at 12:45 Metoprolol Tartrate (Lopressor) 25 mg 1X ONCE PO Last administered on 01/02/22at 12:31; Start 01/02/22 at 12:30; Stop 01/02/22 at 12:31; Status DC Metoprolol Tartrate (Lopressor) 50 mg BID PO Last administered on 01/03/22at 08:46; Start 01/02/22 at 21:00 Nitroglycerin (Nitro-Bid Oint) 1 inch Q6HRS TP Last administered on 01/03/22at 05:24; Start 01/02/22 at 18:00 Vitals/I & O Vital Sign - Last 24 Hours 01/02/22 01/02/22 01/02/22 01/02/22 12:31 12:32 14:39 15:20 Temp 98.2 98.2 Pulse 102 102 99 93 Resp 22 B/P (MAP) 171/106 171/106 178/109 (132) 161/98 (119) Pulse Ox 96 O2 Delivery Nasal Cannula O2 Flow Rate 2.0 01/02/22 01/02/22 01/02/22 01/02/22 17:37 19:00 20:00 20:02 Temp 99.0 99.0 Pulse 93 101 107 Resp 19 B/P (MAP) 161/98 167/107 (127) 167/107 Pulse Ox 96 O2 Delivery Nasal Cannula Nasal Cannula O2 Flow Rate 2.0 2.0 01/02/22 01/02/22 01/02/22 01/02/22 22:44 22:50 22:52 23:20 Temp 97.7 97.7 Pulse 99 99 Resp 22 18 16 B/P (MAP) 172/105 (127) 172/105 Pulse Ox 95 95 95 O2 Delivery Nasal Cannula Nasal Cannula Nasal Cannula O2 Flow Rate 2.0 2.0 2.0 01/03/22 01/03/22 01/03/22 01/03/22 02:35 05:24 07:00 08:00 Temp 98.5 98.4 98.5 98.4 Pulse 90 90 97 Resp B/P (MAP) 188/102 (130) 180/102 188/104 (132) Pulse Ox 9 92 O2 Delivery Nasal Cannula Nasal Cannula Nasal Cannula O2 Flow Rate 2.0 2.0 2.0 01/03/22 01/03/22 01/03/22 01/03/22 08:46 08:46 08:53 10:52 Temp 99.5 99.5 Pulse 97 97 203 85 Resp 20 B/P (MAP) 188/104 188/104 188/104 160/108 (125) Pulse Ox 96 O2 Delivery Nasal Cannula O2 Flow Rate 2.0 Intake and Output 01/02/22 01/02/22 01/03/22 15:00 23:00 07:00 Intake Total 200 ml Output Total 650 ml 1100 ml Balance -450 ml -1100 ml MOISES EWING MD Jan 03, 2022 11:09
[2022-01-03] MEDS: FLECAINIDE ACETATE 50 MG TABLET. PO SCH ×2 (12:20→20:32)
--- NOTE | 2022-01-03 12:23 | PDOC ---
[facility] PROGRESS NOTE Date of Service DOS: DATE: 01/03/22 TIME: 12:22 Chief Complaint Chief Complaint Hyperkalemia requiring emergent dialysis X1 MAYRA Tachycardia Pancreatitis secondary to hypertriglyceridemia and severe electrolyte disturbance with hyponatremia, hypocalcemia, hypophosphatemia, transaminitis. History of Present Illness History of Present Illness 01/03: SVT this morning by my interpretation of telemetry given adenosine. Cardiology recommends initiating antiarrhythmic, 01/02: Been stooling. Still with abdominal distention. He is asking for orange juice and has been on clears. Still very tachycardic. Weak 01/01: Patient now transferred out of ICU to the monitored floor. He is more alert wants to drink some orange juice. I rechecked a lipase level is coming down to the 300s we will try clear liquid diet. His creatinine is up to 2 but potassium still within normal limits. 12/31: Patient seen in ICU. Somewhat somnolent today, possibly due to pain medication. When I pressed on his stomach he does wince and admit some tenderness. Apparently patient is not an alcohol drinker, but on admission triglycerides were 2004. We will repeat triglycerides. Discussed with RN, if triglycerides significant elevated (>1000) we can initiate insulin drip check triglycerides every 6 hours. Will stop insulin drip once triglycerides <500. Continue IV fluids. He will likely discharge on fenofibrate and omega-3 fatty acids. 30 minutes critical care time spent reviewing charts, reviewing labs, reviewing imaging, discussion with RN. 12/30: Patient seen and examined. He is tachycardic this morning. He got emergent dialysis yesterday. Potassium now down to 4.3. We have placed a Jones Vitals/I&O Vitals/I&O: Vital Signs Date Time Temp Pulse Resp B/P (MAP) Pulse Ox O2 Delivery O2 Flow Rate FiO2 01/03/22 12:20 85 160/108 01/03/22 10:52 99.5 20 96 Nasal Cannula 2.0 99.5 I & O 01/02/22 01/02/22 01/03/22 15:00 23:00 07:00 Intake Total 200 ml Output Total 650 ml 1100 ml Balance -450 ml -1100 ml Physical Exam General: Alert, Oriented X3, Cooperative, No acute distress Heart: Regular rate (SR), Normal S1, Normal S2, No murmurs Lungs: Clear Abdomen: Soft, No tenderness, Other (protuberant abd) Extremities: No cyanosis, No edema Skin: No rashes Labs Labs: Laboratory Tests Test 01/02/22 15:58 01/02/22 20:02 01/03/22 03:00 01/03/22 07:21 Glucose (Fingerstick) 167 mg/dL (70-99) 185 mg/dL (70-99) 177 mg/dL (70-99) Sodium Level 137 mmol/L (136-145) Potassium Level 4.1 mmol/L (3.5-5.1) Chloride Level 103 mmol/L (98-107) Carbon Dioxide Level 24 mmol/L (21-32) Anion Gap 10 (6-14) Blood Urea Nitrogen 34 mg/dL (8-26) Creatinine 1.6 mg/dL (0.7-1.3) Estimated GFR (Cockcroft-Gault) 57.6 Glucose Level 154 mg/dL (70-99) Calcium Level 8.2 mg/dL (8.5-10.1) Total Bilirubin 1.9 mg/dL (0.2-1.0) Direct Bilirubin 1.2 mg/dL (0.0-0.2) Aspartate Amino Transf (AST/SGOT) 50 U/L (15-37) Alanine Aminotransferase (ALT/SGPT) 31 U/L (16-63) Alkaline Phosphatase 62 U/L (46-116) Total Protein 6.5 g/dL (6.4-8.2) Albumin 2.6 g/dL (3.4-5.0) Lipase 495 U/L (73-393) Test 01/03/22 11:14 Glucose (Fingerstick) 171 mg/dL (70-99) Assessment and Plan Assessmemt and Plan Problems Medical Problems: (1) Hypocalcemia Status: Acute (2) Intractable abdominal pain Status: Acute (3) Pancreatitis Status: Acute Comment Review of Relevant I have reviewed the following items goyo (where applicable) has been applied. Medications: Current Medications Medications (Trade) Dose Ordered Sig/Raul Route PRN Reason Start Time Stop Time Status Last Admin Dose Admin Metoprolol Tartrate (Lopressor) 50 mg BID PO 01/02/22 21:00 01/03/22 12:09 DC 01/03/22 08:46 Metoprolol Tartrate (Lopressor) 25 mg 1X ONCE PO 01/02/22 12:30 01/02/22 12:31 DC 01/02/22 12:31 Enoxaparin Sodium (Lovenox 40mg Syringe) 40 mg Q24H SQ 01/02/22 17:00 01/02/22 17:37 Nitroglycerin (Nitro-Bid Oint) 1 inch Q6HRS TP 01/02/22 18:00 01/03/22 12:20 Acetaminophen/ Hydrocodone Bitart (Lortab 5/325) 1 tab PRN Q3HRS PRN PO PAIN 01/02/22 22:45 01/02/22 22:50 Adenosine (Adenocard) 6 mg 1X ONCE IV 01/03/22 09:00 01/03/22 09:02 DC 01/03/22 09:01 Flecainide Acetate (Tambocor) 50 mg Q12HR PO 01/03/22 12:15 01/03/22 12:20 Justifications for Admission Other Justification MIYA CARRANZA MD Jan 03, 2022 12:23
[2022-01-03] MEDS ORDERED: SENNOSIDES/DOCUSATE 8.6/50MG TABLET. PO PRN (14:00)
[2022-01-03] MEDS ORDERED: BISACODYL 10 MG SUPP.RECT. PR PRN (14:00)
[2022-01-03] MEDS: POLYETHYLENE GLYCOL 3350 17 GM PACKET. PO SCH (14:00)
--- NOTE | 2022-01-03 14:21 | PDOC ---
DATE OF SERVICE DATE: 01/03/22 TIME: 14:21 SUBJECTIVE ROS Denies N/V, OBJECTIVE Vital Signs Vital Signs Date Time Temp Pulse Resp B/P (MAP) Pulse Ox O2 Delivery O2 Flow Rate FiO2 01/03/22 12:20 85 160/108 01/03/22 10:52 99.5 20 96 Nasal Cannula 2.0 99.5 I & 0 Intake and Output 01/03/22 07:00 Intake Total 200 ml Output Total 1750 ml Balance -1550 ml Intake Oral 200 ml Output Urine Total 1750 ml PHYSICAL EXAM Physical Exam General- NAD HEEN OM moist Neck Supple Lungs Decreased at bases CV S1S2, Abd Obese, soft, NT Ext Ne LE edema Neuro Grossly normal Jones + , No CVA or SP tenderness Psych Cooperative, DIAGNOSIS/ASSESSMENT Assessment & Plan MAYRA - Creat normal at presentation in the ER on 12/28 , CT scan unremarkable Kidneys and Bladder , UA unremarkable Suspected etiology ATN /Intravascular depletion/Pancreatitis . CT scan with IV contrast on 12/28. Mildly elevated CK at presentation , Improved Creatinine trended down - stable today , not back to his normal baseline , Supportive care, maintain fluid balance . Tachycardia - No severe Metabolic abnormalities . Defer to cardiology HyperKalemia - Emergent dialysis 12/29 x1 . K normal today HypoNatremia- POA- resolved HypoPhos- replaced IV 12/31 on 01/01 . Normal today HypoCalcemia - 2/2 Pancreatitis. Normal now Edematous pancreatitis- c/o abdominal pain and tenderness . GI consulted Diffuse hepatic steatosis per GI COMMENT/RELEVANT DATA Meds Current Medications Medications (Trade) Dose Ordered Sig/Raul Start Time Stop Time Status Last Admin Dose Admin Acetaminophen/ Hydrocodone Bitart (Lortab 5/325) 1 tab PRN Q3HRS PRN 01/02/22 22:45 01/02/22 22:50 1 TAB Adenosine (Adenocard) 6 mg 1X ONCE 01/03/22 09:00 01/03/22 09:02 DC 01/03/22 09:01 6 MG Albumin Human 200 ml @ 200 mls/hr 1X PRN PRN 12/29/21 15:15 12/29/21 21:14 DC Amlodipine Besylate (Norvasc) 10 mg DAILY 01/01/22 09:00 01/03/22 08:46 10 MG Bisacodyl (Dulcolax Supp) 10 mg PRN DAILY PRN 01/03/22 14:00 Calcium Gluconate (Calcium Gluconate) 1,000 mg 1X ONCE 12/28/21 19:30 12/28/21 19:34 DC 12/28/21 20:23 1,000 MG Dextrose (Dextrose 50%-Water Syringe) 12.5 gm PRN Q15MIN PRN 12/29/21 15:15 12/29/21 15:11 DC Dextrose (Iv Dextrose 5%) 250 ml PRN Q15MIN PRN 12/29/21 15:15 Enoxaparin Sodium (Lovenox 40mg Syringe) 40 mg Q24H 01/02/22 17:00 01/02/22 17:37 40 MG Fentanyl Citrate (Fentanyl 2ml Vial) 50 mcg 1X ONCE 12/28/21 14:45 12/28/21 14:46 DC 12/28/21 14:58 50 MCG Flecainide Acetate (Tambocor) 50 mg Q12HR 01/03/22 12:15 01/03/22 12:20 50 MG Hydralazine HCl (Apresoline Inj) 10 mg 1X ONCE 01/02/22 12:15 01/02/22 12:16 DC 01/02/22 12:32 10 MG Hydromorphone HCl (Dilaudid) 1 mg 1X ONCE 12/28/21 18:15 12/28/21 18:16 DC 12/28/21 18:16 1 MG Info (CONTRAST GIVEN -- Rx MONITORING) 1 each PRN DAILY PRN 12/28/21 17:15 12/30/21 17:14 DC Info (PHARMACY MONITORING -- do not chart) 1 each PRN DAILY PRN 12/29/21 15:15 Insulin Human Lispro (HumaLOG) 0-9 UNITS TIDWMEALS 01/02/22 12:00 01/03/22 08:50 4 UNITS Iohexol (Omnipaque 300 Mg/ml) 75 ml 1X ONCE 12/28/21 17:15 12/28/21 17:16 DC 12/28/21 17:15 75 ML Labetalol HCl (Normodyne Iv Push) 20 mg PRN Q2HR PRN 01/02/22 12:45 Lidocaine HCl (Buffered Lidocaine 1%) 3 ml 1X ONCE 12/29/21 15:45 12/29/21 15:46 DC 12/29/21 15:42 5 ML Metoprolol Tartrate (Lopressor Vial) 5 mg 1X ONCE 01/01/22 23:30 01/01/22 23:31 DC 01/01/22 23:40 5 MG Metoprolol Tartrate (Lopressor) 100 mg BID 01/03/22 21:00 Morphine Sulfate (Morphine Sulfate) 2 mg PRN Q2HR PRN 12/29/21 23:30 01/02/22 09:55 2 MG Nitroglycerin (Nitro-Bid Oint) 1 inch Q6HRS 01/02/22 18:00 01/03/22 12:20 1 INCH Ondansetron HCl (Zofran) 4 mg PRN Q6HRS PRN 01/01/22 21:15 01/01/22 23:20 4 MG Pantoprazole Sodium (PROTONIX VIAL for IV PUSH) 40 mg DAILYAC 12/29/21 14:00 01/03/22 05:16 40 MG Polyethylene Glycol (miraLAX PACKET) 17 gm DAILY 01/03/22 14:00 Psyllium Hydrophilic Mucilloid (Metamucil Fiber Packet) 1 pkt QHS 01/03/22 21:00 Senna/Docusate Sodium (Senna Plus) 1 tab PRN BID PRN 01/03/22 14:00 Sodium Chloride 1,000 ml @ 50 mls/hr Q20H 12/30/21 12:30 01/02/22 20:01 50 MLS/HR Sodium Chloride (Normal Saline Flush) 10 ml 1X PRN PRN 12/29/21 15:15 12/30/21 15:14 DC Sodium Phosphate 15 mmol/Sodium Chloride 105 ml @ 105 mls/hr 1X ONCE 01/01/22 13:00 01/01/22 13:59 DC 01/01/22 12:23 105 MLS/HR Sodium Phosphate 20 mmol/Sodium Chloride 256.6667 ml @ 64.167 m... 1X ONCE 12/31/21 11:00 12/31/21 14:59 DC 12/31/21 11:02 64.167 MLS/HR Lab Laboratory Tests Test 01/02/22 15:58 01/02/22 20:02 01/03/22 03:00 01/03/22 07:21 Glucose (Fingerstick) 167 mg/dL (70-99) 185 mg/dL (70-99) 177 mg/dL (70-99) Sodium Level 137 mmol/L (136-145) Potassium Level 4.1 mmol/L (3.5-5.1) Chloride Level 103 mmol/L (98-107) Carbon Dioxide Level 24 mmol/L (21-32) Anion Gap 10 (6-14) Blood Urea Nitrogen 34 mg/dL (8-26) Creatinine 1.6 mg/dL (0.7-1.3) Estimated GFR (Cockcroft-Gault) 57.6 Glucose Level 154 mg/dL (70-99) Calcium Level 8.2 mg/dL (8.5-10.1) Total Bilirubin 1.9 mg/dL (0.2-1.0) Direct Bilirubin 1.2 mg/dL (0.0-0.2) Aspartate Amino Transf (AST/SGOT) 50 U/L (15-37) Alanine Aminotransferase (ALT/SGPT) 31 U/L (16-63) Alkaline Phosphatase 62 U/L (46-116) Total Protein 6.5 g/dL (6.4-8.2) Albumin 2.6 g/dL (3.4-5.0) Lipase 495 U/L (73-393) Test 01/03/22 11:14 Glucose (Fingerstick) 171 mg/dL (70-99) Results All relevant outside records, renal labs, imaging studies, telemetry/EKG's were reviewed. Justicifation of Admission Dx: Justifications for Admission: Justification of Admission Dx: N/A DOMO SANCHES MD Jan 03, 2022 14:21
[2022-01-03 15:00] VITALS: BP 171/102
[2022-01-03] MEDS: IV NORMAL SALINE 1000ML BAG 1,000 ML IV SCH (15:16)
[2022-01-03] MEDS: ENOXAPARIN 40 MG/0.4 ML SYRINGE. SQ SCH (16:40)
[2022-01-03 19:00] VITALS: BP 190/99
[2022-01-03] MEDS: PSYLLIUM HUSK (SUGAR FREE) 1 PKT PACKET PO SCH (20:33)
[2022-01-03] MEDS ORDERED: ACETAMINOPHEN 325 MG TABLET. PO PRN (22:45)
[2022-01-03] MEDS: CEFEPIME HCL IV Push 2 GM VIAL. IVP SCH (22:52)
[2022-01-03 23:00] VITALS: BP 165/99
[2022-01-04 03:00] VITALS: BP 163/101
[2022-01-04 05:01] LABS: CALCIUM 8.5 mg/dL (8.5-10.1); CREATININE 1.3 mg/dL (0.7-1.3); GFR 73.3; POTASSIUM 4.1 mmol/L (3.5-5.1)
[2022-01-04 05:12] LABS: ALBUMIN 2.6 g/dL (3.4-5.0); TOTAL BILIRUBIN 1.7 mg/dL (0.2-1.0); TOTAL PROTEIN 6.5 g/dL (6.4-8.2)
[2022-01-04] MEDS: NITROGLYCERIN OINT 1 GM PACKET. TP SCH ×5 (05:40→23:01)
[2022-01-04] MEDS: PANTOPRAZOLE IV PUSH 40 MG VIAL. IVP SCH (05:40)
[2022-01-04 07:00] VITALS: BP 166/100
--- NOTE | 2022-01-04 08:20 | PDOC ---
PROGRESS NOTES Date of Service: DATE: 01/04/22 TIME: 08:20 Subjective Subjective Febrile and slightly confused today Objective Objective Vital Signs Date Time Temp Pulse Resp B/P (MAP) Pulse Ox O2 Delivery O2 Flow Rate FiO2 01/04/22 05:40 85 163/101 01/04/22 03:00 97.6 20 96 Nasal Cannula 2.0 97.6 Intake and Output 01/04/22 07:00 Intake Total 550 ml Output Total 1800 ml Balance -1250 ml Intake Oral 550 ml Output Urine Total 1800 ml # Bowel Movements 5 Physical Exam Abdomen: Soft, No tenderness, Other (protuberant abd) Heart: Regular rate (SR), Normal S1, Normal S2, No murmurs Extremities: No cyanosis, No edema General: Alert, Oriented X3, Cooperative, No acute distress HEENT: Mucous membr. moist/pink Lungs: Other (diminished) MUSCULOSKELETAL: Full range of motion without pain Neuro: Normal speech, Sensation intact Psych/Mental Status: Mental status NL, Mood NL Skin: No rashes Assessment Assessment 1. Severe Pancreatitis: Treat per GI team 2. Hypertriglyceridemia: Consider initiation of therapy once pancreatitis resolves 3. Severe MAYRA with hyperkalemia: x1 emergent HD: Nephrology following 4. Paroxysmal supraventricular tachycardia: Flecainide initiated yesterday for recurrent SVT. None further noted on telemetry. 5. Rhabdomyolysis 6. HTN: Blood pressure better controlled with increased dose of metoprolol 7. New DM2 finding 8. Tobaccoism 9. Fever: Work-up per IM Plan Plan of Care Problems Medical Problems: (1) Hypocalcemia Status: Acute (2) Intractable abdominal pain Status: Acute (3) Pancreatitis Status: Acute Comment Review of Relevant I have reviewed the following items goyo (where applicable) has been applied. Labs Laboratory Tests Test 01/03/22 11:14 01/03/22 15:52 01/03/22 20:48 01/03/22 23:05 Glucose (Fingerstick) 171 mg/dL (70-99) 177 mg/dL (70-99) 158 mg/dL (70-99) Lactic Acid Level 0.8 mmol/L (0.4-2.0) Test 01/04/22 04:30 Sodium Level 137 mmol/L (136-145) Potassium Level 4.1 mmol/L (3.5-5.1) Chloride Level 105 mmol/L (98-107) Carbon Dioxide Level 22 mmol/L (21-32) Anion Gap 10 (6-14) Blood Urea Nitrogen 30 mg/dL (8-26) Creatinine 1.3 mg/dL (0.7-1.3) Estimated GFR (Cockcroft-Gault) 73.3 Glucose Level 149 mg/dL (70-99) Calcium Level 8.5 mg/dL (8.5-10.1) Total Bilirubin 1.7 mg/dL (0.2-1.0) Direct Bilirubin 1.0 mg/dL (0.0-0.2) Aspartate Amino Transf (AST/SGOT) 75 U/L (15-37) Alanine Aminotransferase (ALT/SGPT) 50 U/L (16-63) Alkaline Phosphatase 68 U/L (46-116) Total Protein 6.5 g/dL (6.4-8.2) Albumin 2.6 g/dL (3.4-5.0) Medications Current Medications Acetaminophen (Tylenol) 650 mg PRN Q6HRS PRN PO MILD PAIN / TEMP > 100.3'F Last administered on 01/03/22at 22:48; Start 01/03/22 at 22:45 Adenosine (Adenocard) 6 mg 1X ONCE IV Last administered on 01/03/22at 09:01; Start 01/03/22 at 09:00; Stop 01/03/22 at 09:02; Status DC Bisacodyl (Dulcolax Supp) 10 mg PRN DAILY PRN DC CONSTIPATION; Start 01/03/22 at 14:00 Cefepime HCl (Maxipime) 2 gm Q24H IVP Last administered on 01/03/22at 22:52; Start 01/03/22 at 23:00 Flecainide Acetate (Tambocor) 50 mg Q12HR PO Last administered on 01/03/22at 20:32; Start 01/03/22 at 12:15 Metoprolol Tartrate (Lopressor) 100 mg BID PO Last administered on 01/03/22at 20:32; Start 01/03/22 at 21:00 Polyethylene Glycol (miraLAX PACKET) 17 gm DAILY PO ; Start 01/03/22 at 14:00 Psyllium Hydrophilic Mucilloid (Metamucil Fiber Packet) 1 pkt QHS PO Last administered on 01/03/22at 20:33; Start 01/03/22 at 21:00 Senna/Docusate Sodium (Senna Plus) 1 tab PRN BID PRN PO CONSTIPATION; Start 01/03/22 at 14:00 Vitals/I & O Vital Sign - Last 24 Hours 01/03/22 01/03/22 01/03/22 01/03/22 08:46 08:46 08:53 10:52 Temp 99.5 99.5 Pulse 97 97 203 85 Resp 20 B/P (MAP) 188/104 188/104 188/104 160/108 (125) Pulse Ox 96 O2 Delivery Nasal Cannula O2 Flow Rate 2.0 01/03/22 01/03/22 01/03/22 01/03/22 12:20 12:20 15:00 16:40 Temp 98.3 98.3 Pulse 85 85 90 90 Resp 20 B/P (MAP) 160/108 160/108 171/102 (125) 171/102 Pulse Ox 96 O2 Delivery Nasal Cannula O2 Flow Rate 2.0 01/03/22 01/03/22 01/03/22 01/03/22 19:00 20:00 20:32 20:32 Temp 96.6 96.6 Pulse 101 101 101 Resp 20 B/P (MAP) 190/99 (129) 190/99 190/99 Pulse Ox 94 O2 Delivery Nasal Cannula Nasal Cannula O2 Flow Rate 2.0 2.0 01/03/22 01/04/22 01/04/22 01/04/22 23:00 00:00 03:00 05:40 Temp 101.5 97.6 101.5 97.6 Pulse 84 84 85 85 Resp 20 20 B/P (MAP) 165/99 (121) 165/99 163/101 (121) 163/101 Pulse Ox 95 96 O2 Delivery Nasal Cannula Nasal Cannula O2 Flow Rate 2.0 2.0 Intake and Output 01/03/22 01/03/22 01/04/22 15:00 23:00 07:00 Intake Total 200 ml 150 ml 200 ml Output Total 400 ml 1000 ml 400 ml Balance -200 ml -850 ml -200 ml MOISES EWING MD Jan 04, 2022 08:20
[2022-01-04] MEDS: POLYETHYLENE GLYCOL 3350 17 GM PACKET. PO SCH (09:00)
[2022-01-04] MEDS: METOPROLOL TART IMMED RELEASE 50 MG TABLET. PO SCH ×2 (09:40→22:48)
[2022-01-04] MEDS: FLECAINIDE ACETATE 50 MG TABLET. PO SCH ×2 (09:41→22:48)
[2022-01-04] MEDS: IV NORMAL SALINE 1000ML BAG 1,000 ML IV SCH (09:42)
[2022-01-04] MEDS: INSULIN LISPRO 300 UNITS/3 ML VIAL. SQ SCH ×3 (09:46→17:00)
[2022-01-04 11:00] VITALS: BP 156/99
--- NOTE | 2022-01-04 12:36 | PDOC ---
[facility] PROGRESS NOTE Date of Service DOS: DATE: 01/04/22 TIME: 12:35 Chief Complaint Chief Complaint Hyperkalemia requiring emergent dialysis X1 MAYRA Tachycardia Pancreatitis secondary to hypertriglyceridemia and severe electrolyte disturbance with hyponatremia, hypocalcemia, hypophosphatemia, transaminitis. History of Present Illness History of Present Illness 01/04 : Febrile to 101.5 F overnight. Blood cultures obtained, initiated on cefepime this morning. He is little more drowsy. If fever curve continues will need repeat CT abdomen pelvis. 01/03: SVT this morning by my interpretation of telemetry given adenosine. Cardiology recommends initiating antiarrhythmic, 01/02: Been stooling. Still with abdominal distention. He is asking for orange juice and has been on clears. Still very tachycardic. Weak 01/01: Patient now transferred out of ICU to the monitored floor. He is more alert wants to drink some orange juice. I rechecked a lipase level is coming down to the 300s we will try clear liquid diet. His creatinine is up to 2 but potassium still within normal limits. 12/31: Patient seen in ICU. Somewhat somnolent today, possibly due to pain me dication. When I pressed on his stomach he does wince and admit some tenderness. Apparently patient is not an alcohol drinker, but on admission triglycerides were 2004. We will repeat triglycerides. Discussed with RN, if triglycerides significant elevated (>1000) we can initiate insulin drip check triglycerides every 6 hours. Will stop insulin drip once triglycerides <500. Continue IV fluids. He will likely discharge on fenofibrate and omega-3 fatty acids. 30 minutes critical care time spent reviewing charts, reviewing labs, reviewing imaging, discussion with RN. 12/30: Patient seen and examined. He is tachycardic this morning. He got emergent dialysis yesterday. Potassium now down to 4.3. We have placed a Jones Vitals/I&O Vitals/I&O: Vital Signs Date Time Temp Pulse Resp B/P (MAP) Pulse Ox O2 Delivery O2 Flow Rate FiO2 01/04/22 11:54 81 156/99 01/04/22 11:00 98.4 19 94 Nasal Cannula 2.0 98.4 I & O 01/03/22 01/03/22 01/04/22 15:00 23:00 07:00 Intake Total 200 ml 150 ml 200 ml Output Total 400 ml 1000 ml 400 ml Balance -200 ml -850 ml -200 ml Physical Exam General: Alert, Oriented X3, Cooperative, No acute distress Heart: Regular rate (SR), Normal S1, Normal S2, No murmurs Lungs: Clear Abdomen: Soft, No tenderness, Other (protuberant abd) Extremities: No cyanosis, No edema Skin: No rashes Labs Labs: Laboratory Tests Test 01/03/22 15:52 01/03/22 20:48 01/03/22 23:05 01/04/22 04:30 Glucose (Fingerstick) 177 mg/dL (70-99) 158 mg/dL (70-99) Lactic Acid Level 0.8 mmol/L (0.4-2.0) Sodium Level 137 mmol/L (136-145) Potassium Level 4.1 mmol/L (3.5-5.1) Chloride Level 105 mmol/L (98-107) Carbon Dioxide Level 22 mmol/L (21-32) Anion Gap 10 (6-14) Blood Urea Nitrogen 30 mg/dL (8-26) Creatinine 1.3 mg/dL (0.7-1.3) Estimated GFR (Cockcroft-Gault) 73.3 Glucose Level 149 mg/dL (70-99) Calcium Level 8.5 mg/dL (8.5-10.1) Total Bilirubin 1.7 mg/dL (0.2-1.0) Direct Bilirubin 1.0 mg/dL (0.0-0.2) Aspartate Amino Transf (AST/SGOT) 75 U/L (15-37) Alanine Aminotransferase (ALT/SGPT) 50 U/L (16-63) Alkaline Phosphatase 68 U/L (46-116) Total Protein 6.5 g/dL (6.4-8.2) Albumin 2.6 g/dL (3.4-5.0) Test 01/04/22 07:41 01/04/22 11:08 Glucose (Fingerstick) 164 mg/dL (70-99) 152 mg/dL (70-99) Assessment and Plan Assessmemt and Plan Problems Medical Problems: (1) Hypocalcemia Status: Acute (2) Intractable abdominal pain Status: Acute (3) Pancreatitis Status: Acute Comment Review of Relevant I have reviewed the following items goyo (where applicable) has been applied. Medications: Current Medications Medications (Trade) Dose Ordered Sig/Raul Route PRN Reason Start Time Stop Time Status Last Admin Dose Admin Metoprolol Tartrate (Lopressor) 100 mg BID PO 01/03/22 21:00 01/04/22 09:40 Psyllium Hydrophilic Mucilloid (Metamucil Fiber Packet) 1 pkt QHS PO 01/03/22 21:00 01/03/22 20:33 Acetaminophen (Tylenol) 650 mg PRN Q6HRS PRN PO MILD PAIN / TEMP > 100.3'F 01/03/22 22:45 01/03/22 22:48 Cefepime HCl (Maxipime) 2 gm Q24H IVP 01/03/22 23:00 01/03/22 22:52 Justifications for Admission Other Justification MIYA CARRANZA MD Jan 04, 2022 12:36
--- NOTE | 2022-01-04 12:56 | PDOC ---
DATE OF SERVICE DATE: 01/04/22 TIME: 12:56 SUBJECTIVE ROS Denies N/V, states feeling better . No abdominal pain . OBJECTIVE Vital Signs Vital Signs Date Time Temp Pulse Resp B/P (MAP) Pulse Ox O2 Delivery O2 Flow Rate FiO2 01/04/22 11:54 81 156/99 01/04/22 11:00 98.4 19 94 Nasal Cannula 2.0 98.4 I & 0 Intake and Output 01/04/22 07:00 Intake Total 550 ml Output Total 1800 ml Balance -1250 ml Intake Oral 550 ml Output Urine Total 1800 ml # Bowel Movements 5 PHYSICAL EXAM Physical Exam General- NAD HEEN OM moist Neck Supple Lungs Decreased at bases CV S1S2, Abd Obese, soft, NT Ext Ne LE edema Neuro Grossly normal Jones + , No CVA or SP tenderness Psych Cooperative, DIAGNOSIS/ASSESSMENT Assessment & Plan MAYRA - Creat normal at presentation in the ER on 12/28 , CT scan unremarkable Kidneys and Bladder , UA unremarkable Suspected etiology ATN /Intravascular depletion/Pancreatitis . CT scan with IV contrast on 12/28. Mildly elevated CK at presentation , Improved Creatinine trending down not back to his normal baseline , Supportive care, maintain fluid balance . Tachycardia - No severe Metabolic abnormalities . Defer to cardiology Fever- Febrile to 101.5 F overnight. Blood cultures obtained, may need to repeat CT abdomen if persistent HyperKalemia - Emergent dialysis 12/29 x1 . K normal today HypoNatremia- POA- resolved HypoPhos- replaced IV 12/31 on 01/01 . Normal today HypoCalcemia - 2/2 Pancreatitis. Normal now Edematous pancreatitis- c/o abdominal pain and tenderness . GI consulted Diffuse hepatic steatosis per GI COMMENT/RELEVANT DATA Meds Current Medications Medications (Trade) Dose Ordered Sig/Raul Start Time Stop Time Status Last Admin Dose Admin Acetaminophen (Tylenol) 650 mg PRN Q6HRS PRN 01/03/22 22:45 01/03/22 22:48 650 MG Acetaminophen/ Hydrocodone Bitart (Lortab 5/325) 1 tab PRN Q3HRS PRN 01/02/22 22:45 01/02/22 22:50 1 TAB Adenosine (Adenocard) 6 mg 1X ONCE 01/03/22 09:00 01/03/22 09:02 DC 01/03/22 09:01 6 MG Albumin Human 200 ml @ 200 mls/hr 1X PRN PRN 12/29/21 15:15 12/29/21 21:14 DC Amlodipine Besylate (Norvasc) 10 mg DAILY 01/01/22 09:00 01/04/22 09:41 10 MG Bisacodyl (Dulcolax Supp) 10 mg PRN DAILY PRN 01/03/22 14:00 Calcium Gluconate (Calcium Gluconate) 1,000 mg 1X ONCE 12/28/21 19:30 12/28/21 19:34 DC 12/28/21 20:23 1,000 MG Cefepime HCl (Maxipime) 2 gm Q24H 01/03/22 23:00 01/03/22 22:52 2 GM Dextrose (Dextrose 50%-Water Syringe) 12.5 gm PRN Q15MIN PRN 12/29/21 15:15 12/29/21 15:11 DC Dextrose (Iv Dextrose 5%) 250 ml PRN Q15MIN PRN 12/29/21 15:15 Enoxaparin Sodium (Lovenox 40mg Syringe) 40 mg Q24H 01/02/22 17:00 01/03/22 16:40 40 MG Fentanyl Citrate (Fentanyl 2ml Vial) 50 mcg 1X ONCE 12/28/21 14:45 12/28/21 14:46 DC 12/28/21 14:58 50 MCG Flecainide Acetate (Tambocor) 50 mg Q12HR 01/03/22 12:15 01/04/22 09:41 50 MG Hydralazine HCl (Apresoline Inj) 10 mg 1X ONCE 01/02/22 12:15 01/02/22 12:16 DC 01/02/22 12:32 10 MG Hydromorphone HCl (Dilaudid) 1 mg 1X ONCE 12/28/21 18:15 12/28/21 18:16 DC 12/28/21 18:16 1 MG Info (CONTRAST GIVEN -- Rx MONITORING) 1 each PRN DAILY PRN 12/28/21 17:15 12/30/21 17:14 DC Info (PHARMACY MONITORING -- do not chart) 1 each PRN DAILY PRN 12/29/21 15:15 Insulin Human Lispro (HumaLOG) 0-9 UNITS TIDWMEALS 01/02/22 12:00 01/04/22 12:01 4 UNITS Iohexol (Omnipaque 300 Mg/ml) 75 ml 1X ONCE 12/28/21 17:15 12/28/21 17:16 DC 12/28/21 17:15 75 ML Labetalol HCl (Normodyne Iv Push) 20 mg PRN Q2HR PRN 01/02/22 12:45 Lidocaine HCl (Buffered Lidocaine 1%) 3 ml 1X ONCE 12/29/21 15:45 12/29/21 15:46 DC 12/29/21 15:42 5 ML Metoprolol Tartrate (Lopressor Vial) 5 mg 1X ONCE 01/01/22 23:30 01/01/22 23:31 DC 01/01/22 23:40 5 MG Metoprolol Tartrate (Lopressor) 100 mg BID 01/03/22 21:00 01/04/22 09:40 100 MG Morphine Sulfate (Morphine Sulfate) 2 mg PRN Q2HR PRN 12/29/21 23:30 01/02/22 09:55 2 MG Nitroglycerin (Nitro-Bid Oint) 1 inch Q6HRS 01/02/22 18:00 01/04/22 11:54 1 INCH Ondansetron HCl (Zofran) 4 mg PRN Q6HRS PRN 01/01/22 21:15 01/01/22 23:20 4 MG Pantoprazole Sodium (PROTONIX VIAL for IV PUSH) 40 mg DAILYAC 12/29/21 14:00 01/04/22 05:40 40 MG Polyethylene Glycol (miraLAX PACKET) 17 gm DAILY 01/03/22 14:00 Psyllium Hydrophilic Mucilloid (Metamucil Fiber Packet) 1 pkt QHS 01/03/22 21:00 01/03/22 20:33 1 PKT Senna/Docusate Sodium (Senna Plus) 1 tab PRN BID PRN 01/03/22 14:00 Sodium Chloride 1,000 ml @ 50 mls/hr Q20H 12/30/21 12:30 01/04/22 09:42 50 MLS/HR Sodium Chloride (Normal Saline Flush) 10 ml 1X PRN PRN 12/29/21 15:15 12/30/21 15:14 DC Sodium Phosphate 15 mmol/Sodium Chloride 105 ml @ 105 mls/hr 1X ONCE 01/01/22 13:00 01/01/22 13:59 DC 01/01/22 12:23 105 MLS/HR Sodium Phosphate 20 mmol/Sodium Chloride 256.6667 ml @ 64.167 m... 1X ONCE 12/31/21 11:00 12/31/21 14:59 DC 12/31/21 11:02 64.167 MLS/HR Lab Laboratory Tests Test 01/03/22 15:52 01/03/22 20:48 01/03/22 23:05 01/04/22 04:30 Glucose (Fingerstick) 177 mg/dL (70-99) 158 mg/dL (70-99) Lactic Acid Level 0.8 mmol/L (0.4-2.0) Sodium Level 137 mmol/L (136-145) Potassium Level 4.1 mmol/L (3.5-5.1) Chloride Level 105 mmol/L (98-107) Carbon Dioxide Level 22 mmol/L (21-32) Anion Gap 10 (6-14) Blood Urea Nitrogen 30 mg/dL (8-26) Creatinine 1.3 mg/dL (0.7-1.3) Estimated GFR (Cockcroft-Gault) 73.3 Glucose Level 149 mg/dL (70-99) Calcium Level 8.5 mg/dL (8.5-10.1) Total Bilirubin 1.7 mg/dL (0.2-1.0) Direct Bilirubin 1.0 mg/dL (0.0-0.2) Aspartate Amino Transf (AST/SGOT) 75 U/L (15-37) Alanine Aminotransferase (ALT/SGPT) 50 U/L (16-63) Alkaline Phosphatase 68 U/L (46-116) Total Protein 6.5 g/dL (6.4-8.2) Albumin 2.6 g/dL (3.4-5.0) Test 01/04/22 07:41 01/04/22 11:08 Glucose (Fingerstick) 164 mg/dL (70-99) 152 mg/dL (70-99) Results All relevant outside records, renal labs, imaging studies, telemetry/EKG's were reviewed. Justicifation of Admission Dx: Justifications for Admission: Justification of Admission Dx: N/A DOMO SANCHES MD Jan 04, 2022 12:56
[2022-01-04 15:00] VITALS: BP 155/96
[2022-01-04] MEDS: ENOXAPARIN 40 MG/0.4 ML SYRINGE. SQ SCH (16:59)
[2022-01-04 19:30] VITALS: BP 156/94
[2022-01-04] MEDS: PSYLLIUM HUSK (SUGAR FREE) 1 PKT PACKET PO SCH (22:48)
[2022-01-04] MEDS: CEFEPIME HCL IV Push 2 GM VIAL. IVP SCH (22:49)
[2022-01-04 22:55] VITALS: BP 137/94
[2022-01-04] MEDS: HYDROcodone/APAP 5/325MG 1 TAB TABLET PO PRN (22:58)
[2022-01-05 03:10] VITALS: BP 153/91
[2022-01-05 06:01] LABS: CALCIUM 8.3 mg/dL (8.5-10.1); CREATININE 1.3 mg/dL (0.7-1.3); GFR 73.3
[2022-01-05] MEDS: NITROGLYCERIN OINT 1 GM PACKET. TP SCH ×3 (06:22→17:00)
[2022-01-05] MEDS: PANTOPRAZOLE IV PUSH 40 MG VIAL. IVP SCH (06:22)
[2022-01-05 07:00] VITALS: BP 153/103
[2022-01-05] MEDS ORDERED: PERFLUTREN PROTEIN-A MICROSPHR 0.22 MG/ML 3 ML VIAL. IV ONE (07:45)
[2022-01-05] MEDS: POLYETHYLENE GLYCOL 3350 17 GM PACKET. PO SCH (08:44)
[2022-01-05] MEDS: METOPROLOL TART IMMED RELEASE 50 MG TABLET. PO SCH ×2 (08:45→19:40)
[2022-01-05] MEDS: FLECAINIDE ACETATE 50 MG TABLET. PO SCH ×2 (08:46→19:40)
[2022-01-05] MEDS: INSULIN LISPRO 300 UNITS/3 ML VIAL. SQ SCH ×3 (08:49→17:05)
[2022-01-05] MEDS: IV NORMAL SALINE 1000ML BAG 1,000 ML IV SCH (08:51)
--- NOTE | 2022-01-05 09:59 | PDOC ---
Date of Service: DATE: 01/05/22 TIME: 09:54 Subjective: Subjective: Denies abdominal pain. Says he was trying to sleep. Objective: Objective: D/w nurse - tolerating clears, HR better, no c/o abd pain - not asking for pain meds. Reviewed chart - received Lortab late last night, fever x 1 on 01/03. Vital Signs: Vital Signs Date Time Temp Pulse Resp B/P (MAP) Pulse Ox O2 Delivery O2 Flow Rate FiO2 01/05/22 08:46 95 153/103 01/05/22 03:10 98.0 20 94 Room Air 98.0 01/04/22 23:28 2.0 Labs: Laboratory Tests Test 01/04/22 11:08 01/04/22 17:05 01/04/22 22:55 01/05/22 04:45 Glucose (Fingerstick) 152 mg/dL 146 mg/dL 131 mg/dL Sodium Level 134 mmol/L Potassium Level 4.0 mmol/L Chloride Level 102 mmol/L Carbon Dioxide Level 21 mmol/L Anion Gap 11 Blood Urea Nitrogen 28 mg/dL Creatinine 1.3 mg/dL Estimated GFR (Cockcroft-Gault) 73.3 Glucose Level 155 mg/dL Calcium Level 8.3 mg/dL Test 01/05/22 07:51 Glucose (Fingerstick) 214 mg/dL BLOOD CULTURE Preliminary NO GROWTH AFTER 1 DAY PE: GEN: NAD - breakfast tray (clears) consumed except jello LUNGS: snoring loudly HEART: mildly tachycardic ABD: quiet BS, non-tender SKIN: sweating NEURO/PSYCH: drowsy - in and out of sleep, mumbling A/P: Severe pancreatitis w/ hypertriglyceridemia -- Try full liquids for lunch. Hold on interval CT for now, will d/w Dr. Tsai. Justicifation of Admission Dx: Justifications for Admission: Justification of Admission Dx: N/A LUH BAHENA Jan 05, 2022 09:59
[2022-01-05 10:28] LABS: HEMATOCRIT 35.9 % (39.0-53.0); HEMOGLOBIN 11.1 g/dL (13.0-17.5); RED BLOOD COUNT 4.24 x10^6/uL (4.30-5.70); RED CELL DISTRIBUTION WIDTH 15.9 % (11.5-14.5); WHITE BLOOD COUNT 11.6 x10^3/uL (4.0-11.0)
--- NOTE | 2022-01-05 10:50 | PDOC ---
DATE OF SERVICE DATE: 01/05/22 TIME: 10:47 SUBJECTIVE ROS Denies N/V, states feeling better . No abdominal pain . Tolerating clears OBJECTIVE Vital Signs Vital Signs Date Time Temp Pulse Resp B/P (MAP) Pulse Ox O2 Delivery O2 Flow Rate FiO2 01/05/22 08:46 95 153/103 01/05/22 08:00 Nasal Cannula 2.0 01/05/22 07:00 99.0 18 93 99.0 I & 0 Intake and Output 01/05/22 07:00 Intake Total 1280 ml Output Total 2940 ml Balance -1660 ml Intake Oral 280 ml IV Total 1000 ml Output Urine Total 2940 ml # Voids 3 PHYSICAL EXAM Physical Exam General- NAD HEEN OM moist Neck Supple Lungs Decreased at bases CV S1S2, Abd Obese, soft, NT Ext Ne LE edema Neuro Grossly normal Jones + , No CVA or SP tenderness Psych Cooperative, DIAGNOSIS/ASSESSMENT Assessment & Plan MAYRA - Creat normal at presentation in the ER on 12/28 , CT scan unremarkable Kidneys and Bladder , UA unremarkable Suspected etiology ATN /Intravascular depletion/Pancreatitis . CT scan with IV contrast on 12/28. Mildly elevated CK at presentation , Creat trending down - stable today . not back to his normal baseline . Supportive care, maintain fluid balance . HyperKalemia - Emergent dialysis 12/29 x1 . K normal today HypoNatremia- POA- resolved HypoPhos- replaced IV 12/31 on 01/01 . Normal today HypoCalcemia - 2/2 Pancreatitis. Normal now Edematous pancreatitis- c/o abdominal pain and tenderness . GI consulted Diffuse hepatic steatosis per GI COMMENT/RELEVANT DATA Meds Current Medications Medications (Trade) Dose Ordered Sig/Raul Start Time Stop Time Status Last Admin Dose Admin Acetaminophen (Tylenol) 650 mg PRN Q6HRS PRN 01/03/22 22:45 01/03/22 22:48 650 MG Acetaminophen/ Hydrocodone Bitart (Lortab 5/325) 1 tab PRN Q3HRS PRN 01/02/22 22:45 01/04/22 22:58 1 TAB Adenosine (Adenocard) 6 mg 1X ONCE 01/03/22 09:00 01/03/22 09:02 DC 01/03/22 09:01 6 MG Albumin Human 200 ml @ 200 mls/hr 1X PRN PRN 12/29/21 15:15 12/29/21 21:14 DC Amlodipine Besylate (Norvasc) 10 mg DAILY 01/01/22 09:00 01/05/22 08:45 10 MG Bisacodyl (Dulcolax Supp) 10 mg PRN DAILY PRN 01/03/22 14:00 Calcium Gluconate (Calcium Gluconate) 1,000 mg 1X ONCE 12/28/21 19:30 12/28/21 19:34 DC 12/28/21 20:23 1,000 MG Cefepime HCl (Maxipime) 2 gm Q24H 01/03/22 23:00 01/04/22 22:49 2 GM Dextrose (Dextrose 50%-Water Syringe) 12.5 gm PRN Q15MIN PRN 12/29/21 15:15 12/29/21 15:11 DC Dextrose (Iv Dextrose 5%) 250 ml PRN Q15MIN PRN 12/29/21 15:15 Enoxaparin Sodium (Lovenox 40mg Syringe) 40 mg Q24H 01/02/22 17:00 01/04/22 16:59 40 MG Fentanyl Citrate (Fentanyl 2ml Vial) 50 mcg 1X ONCE 12/28/21 14:45 12/28/21 14:46 DC 12/28/21 14:58 50 MCG Flecainide Acetate (Tambocor) 50 mg Q12HR 01/03/22 12:15 01/05/22 08:46 50 MG Hydralazine HCl (Apresoline Inj) 10 mg 1X ONCE 01/02/22 12:15 01/02/22 12:16 DC 01/02/22 12:32 10 MG Hydromorphone HCl (Dilaudid) 1 mg 1X ONCE 12/28/21 18:15 12/28/21 18:16 DC 12/28/21 18:16 1 MG Info (CONTRAST GIVEN -- Rx MONITORING) 1 each PRN DAILY PRN 12/28/21 17:15 12/30/21 17:14 DC Info (PHARMACY MONITORING -- do not chart) 1 each PRN DAILY PRN 12/29/21 15:15 Insulin Human Lispro (HumaLOG) 0-9 UNITS TIDWMEALS 01/02/22 12:00 01/05/22 08:49 5 UNITS Iohexol (Omnipaque 300 Mg/ml) 75 ml 1X ONCE 12/28/21 17:15 12/28/21 17:16 DC 12/28/21 17:15 75 ML Labetalol HCl (Normodyne Iv Push) 20 mg PRN Q2HR PRN 01/02/22 12:45 Lidocaine HCl (Buffered Lidocaine 1%) 3 ml 1X ONCE 12/29/21 15:45 12/29/21 15:46 DC 12/29/21 15:42 5 ML Metoprolol Tartrate (Lopressor Vial) 5 mg 1X ONCE 01/01/22 23:30 01/01/22 23:31 DC 01/01/22 23:40 5 MG Metoprolol Tartrate (Lopressor) 100 mg BID 01/03/22 21:00 01/05/22 08:45 100 MG Morphine Sulfate (Morphine Sulfate) 2 mg PRN Q2HR PRN 12/29/21 23:30 01/02/22 09:55 2 MG Nitroglycerin (Nitro-Bid Oint) 1 inch Q6HRS 01/02/22 18:00 01/05/22 06:22 1 INCH Ondansetron HCl (Zofran) 4 mg PRN Q6HRS PRN 01/01/22 21:15 01/01/22 23:20 4 MG Pantoprazole Sodium (PROTONIX VIAL for IV PUSH) 40 mg DAILYAC 12/29/21 14:00 01/05/22 10:01 DC 01/05/22 06:22 40 MG Pantoprazole Sodium (Protonix) 40 mg DAILYAC 01/06/22 07:30 Perflutren Protein Type A Microsphe (Optison) 0.66 mg 1X ONCE 01/05/22 07:45 01/05/22 07:46 DC Polyethylene Glycol (miraLAX PACKET) 17 gm DAILY 01/03/22 14:00 01/05/22 08:44 17 GM Psyllium Hydrophilic Mucilloid (Metamucil Fiber Packet) 1 pkt QHS 01/03/22 21:00 01/04/22 22:48 1 PKT Senna/Docusate Sodium (Senna Plus) 1 tab PRN BID PRN 01/03/22 14:00 Sodium Chloride 1,000 ml @ 50 mls/hr Q20H 12/30/21 12:30 01/05/22 08:51 50 MLS/HR Sodium Chloride (Normal Saline Flush) 10 ml 1X PRN PRN 12/29/21 15:15 12/30/21 15:14 DC Sodium Phosphate 15 mmol/Sodium Chloride 105 ml @ 105 mls/hr 1X ONCE 01/01/22 13:00 01/01/22 13:59 DC 01/01/22 12:23 105 MLS/HR Sodium Phosphate 20 mmol/Sodium Chloride 256.6667 ml @ 64.167 m... 1X ONCE 12/31/21 11:00 12/31/21 14:59 DC 12/31/21 11:02 64.167 MLS/HR Lab Laboratory Tests Test 01/04/22 11:08 01/04/22 17:05 01/04/22 22:55 01/05/22 04:45 Glucose (Fingerstick) 152 mg/dL (70-99) 146 mg/dL (70-99) 131 mg/dL (70-99) White Blood Count 11.6 x10^3/uL (4.0-11.0) Red Blood Count 4.24 x10^6/uL (4.30-5.70) Hemoglobin 11.1 g/dL (13.0-17.5) Hematocrit 35.9 % (39.0-53.0) Mean Corpuscular Volume 85 fL (79-100) Mean Corpuscular Hemoglobin 26 pg (25-35) Mean Corpuscular Hemoglobin Concent 31 g/dL (31-37) Red Cell Distribution Width 15.9 % (11.5-14.5) Platelet Count 239 x10^3/uL (140-400) Sodium Level 134 mmol/L (136-145) Potassium Level 4.0 mmol/L (3.5-5.1) Chloride Level 102 mmol/L (98-107) Carbon Dioxide Level 21 mmol/L (21-32) Anion Gap 11 (6-14) Blood Urea Nitrogen 28 mg/dL (8-26) Creatinine 1.3 mg/dL (0.7-1.3) Estimated GFR (Cockcroft-Gault) 73.3 Glucose Level 155 mg/dL (70-99) Calcium Level 8.3 mg/dL (8.5-10.1) Test 01/05/22 07:51 Glucose (Fingerstick) 214 mg/dL (70-99) Results All relevant outside records, renal labs, imaging studies, telemetry/EKG's were reviewed. Justicifation of Admission Dx: Justifications for Admission: Justification of Admission Dx: N/A DOMO SANCHES MD Jan 05, 2022 10:50
[2022-01-05 11:00] VITALS: BP 171/95
--- NOTE | 2022-01-05 14:04 | PDOC ---
PULMONARY PROGRESS NOTES DATE: 01/05/22 TIME: 14:04 Vitals Vital Signs Date Time Temp Pulse Resp B/P (MAP) Pulse Ox O2 Delivery O2 Flow Rate FiO2 01/05/22 11:59 77 171/95 01/05/22 11:00 98.2 20 94 Room Air 98.2 01/05/22 08:00 2.0 Lungs: Clear Labs Laboratory Tests Test 01/03/22 15:52 01/03/22 20:48 01/03/22 23:05 01/04/22 04:30 Glucose (Fingerstick) 177 mg/dL (70-99) 158 mg/dL (70-99) Lactic Acid Level 0.8 mmol/L (0.4-2.0) Sodium Level 137 mmol/L (136-145) Potassium Level 4.1 mmol/L (3.5-5.1) Chloride Level 105 mmol/L (98-107) Carbon Dioxide Level 22 mmol/L (21-32) Anion Gap 10 (6-14) Blood Urea Nitrogen 30 mg/dL (8-26) Creatinine 1.3 mg/dL (0.7-1.3) Estimated GFR (Cockcroft-Gault) 73.3 Glucose Level 149 mg/dL (70-99) Calcium Level 8.5 mg/dL (8.5-10.1) Total Bilirubin 1.7 mg/dL (0.2-1.0) Direct Bilirubin 1.0 mg/dL (0.0-0.2) Aspartate Amino Transf (AST/SGOT) 75 U/L (15-37) Alanine Aminotransferase (ALT/SGPT) 50 U/L (16-63) Alkaline Phosphatase 68 U/L (46-116) Total Protein 6.5 g/dL (6.4-8.2) Albumin 2.6 g/dL (3.4-5.0) Test 01/04/22 07:41 01/04/22 11:08 01/04/22 17:05 01/04/22 22:55 Glucose (Fingerstick) 164 mg/dL (70-99) 152 mg/dL (70-99) 146 mg/dL (70-99) 131 mg/dL (70-99) Test 01/05/22 04:45 01/05/22 07:51 01/05/22 11:26 White Blood Count 11.6 x10^3/uL (4.0-11.0) Red Blood Count 4.24 x10^6/uL (4.30-5.70) Hemoglobin 11.1 g/dL (13.0-17.5) Hematocrit 35.9 % (39.0-53.0) Mean Corpuscular Volume 85 fL (79-100) Mean Corpuscular Hemoglobin 26 pg (25-35) Mean Corpuscular Hemoglobin Concent 31 g/dL (31-37) Red Cell Distribution Width 15.9 % (11.5-14.5) Platelet Count 239 x10^3/uL (140-400) Sodium Level 134 mmol/L (136-145) Potassium Level 4.0 mmol/L (3.5-5.1) Chloride Level 102 mmol/L (98-107) Carbon Dioxide Level 21 mmol/L (21-32) Anion Gap 11 (6-14) Blood Urea Nitrogen 28 mg/dL (8-26) Creatinine 1.3 mg/dL (0.7-1.3) Estimated GFR (Cockcroft-Gault) 73.3 Glucose Level 155 mg/dL (70-99) Calcium Level 8.3 mg/dL (8.5-10.1) Glucose (Fingerstick) 214 mg/dL (70-99) 131 mg/dL (70-99) Laboratory Tests Test 01/04/22 17:05 01/04/22 22:55 01/05/22 04:45 01/05/22 07:51 Glucose (Fingerstick) 146 mg/dL (70-99) 131 mg/dL (70-99) 214 mg/dL (70-99) White Blood Count 11.6 x10^3/uL (4.0-11.0) Red Blood Count 4.24 x10^6/uL (4.30-5.70) Hemoglobin 11.1 g/dL (13.0-17.5) Hematocrit 35.9 % (39.0-53.0) Mean Corpuscular Volume 85 fL (79-100) Mean Corpuscular Hemoglobin 26 pg (25-35) Mean Corpuscular Hemoglobin Concent 31 g/dL (31-37) Red Cell Distribution Width 15.9 % (11.5-14.5) Platelet Count 239 x10^3/uL (140-400) Sodium Level 134 mmol/L (136-145) Potassium Level 4.0 mmol/L (3.5-5.1) Chloride Level 102 mmol/L (98-107) Carbon Dioxide Level 21 mmol/L (21-32) Anion Gap 11 (6-14) Blood Urea Nitrogen 28 mg/dL (8-26) Creatinine 1.3 mg/dL (0.7-1.3) Estimated GFR (Cockcroft-Gault) 73.3 Glucose Level 155 mg/dL (70-99) Calcium Level 8.3 mg/dL (8.5-10.1) Test 01/05/22 11:26 Glucose (Fingerstick) 131 mg/dL (70-99) Impression . Full consult dictated Clinical presentation with obstructive sleep apnea Outpatient polysomnogram Check arterial blood gas HARINDER KERR MD Jan 05, 2022 14:04
--- NOTE | 2022-01-05 14:13 | PDOC ---
CAMPOS DUNLAP CANOPY INSPECTOR 01/05/22 1413: CARDIO Progress Notes Date and Time Date of Service 01/05/22 Time of Evaluation 1410 Subjective Subjective: No Chest Pain Vitals Vitals Vital Signs Date Time Temp Pulse Resp B/P (MAP) Pulse Ox O2 Delivery O2 Flow Rate FiO2 01/05/22 11:59 77 171/95 01/05/22 11:00 98.2 20 94 Room Air 98.2 01/05/22 08:00 2.0 Weight Weight [ ] Input and Output Intake and Output Intake and Output 01/05/22 07:00 Intake Total 1280 ml Output Total 2940 ml Balance -1660 ml Intake Oral 280 ml IV Total 1000 ml Output Urine Total 2940 ml # Voids 3 Laboratory Labs Laboratory Tests Test 01/04/22 17:05 01/04/22 22:55 01/05/22 04:45 01/05/22 07:51 Glucose (Fingerstick) 146 mg/dL (70-99) 131 mg/dL (70-99) 214 mg/dL (70-99) White Blood Count 11.6 x10^3/uL (4.0-11.0) Red Blood Count 4.24 x10^6/uL (4.30-5.70) Hemoglobin 11.1 g/dL (13.0-17.5) Hematocrit 35.9 % (39.0-53.0) Mean Corpuscular Volume 85 fL (79-100) Mean Corpuscular Hemoglobin 26 pg (25-35) Mean Corpuscular Hemoglobin Concent 31 g/dL (31-37) Red Cell Distribution Width 15.9 % (11.5-14.5) Platelet Count 239 x10^3/uL (140-400) Sodium Level 134 mmol/L (136-145) Potassium Level 4.0 mmol/L (3.5-5.1) Chloride Level 102 mmol/L (98-107) Carbon Dioxide Level 21 mmol/L (21-32) Anion Gap 11 (6-14) Blood Urea Nitrogen 28 mg/dL (8-26) Creatinine 1.3 mg/dL (0.7-1.3) Estimated GFR (Cockcroft-Gault) 73.3 Glucose Level 155 mg/dL (70-99) Calcium Level 8.3 mg/dL (8.5-10.1) Test 01/05/22 11:26 Glucose (Fingerstick) 131 mg/dL (70-99) Microbiology Micro Microbiology 01/03/22 Blood Culture - Preliminary, Resulted NO GROWTH AFTER 1 DAY Physical Exam HEENT: Neck Supple W Full Motion Chest: Symmetric LUNGS: Clear to Auscultation Heart: RRR Extremities: No Edema Neurology: alert, oriented, follow commands Assessment Assessment 1. Severe Pancreatitis 2. Hypertriglyceridemia: Consider initiation of therapy once pancreatitis resolves 3. Severe MAYRA with hyperkalemia: x1 emergent HD. improved 4. Paroxysmal supraventricular tachycardia: Flecainide initiated 01/03 for recurrent SVT. None further noted on telemetry. 5. Rhabdomyolysis 6. HTN: mildly labile 7. DM2: ? new finding 8. Tobaccoism 9. Suspected IBIS Recommendations Echo pending Continue metoprolol for rate control Flecainide for rhythm maintenance Outpatient ischemic evaluation Reinforced smoking cessation Add hydralazine for BP control Follow GI recs. Consult pulmonary Supportive care Justicifation of Admission Dx: Justifications for Admission: Justification of Admission Dx: N/A MICHAELA HODGES MD 01/06/22 0719: CARDIO Progress Notes Plan Plan Late entry for 01/05/2022 Patient seen and examined. Agree with above nurse practitioner note. We will asked the pulmonary service to evaluate the patient as he has significant sleep apnea type symptoms. He is unable to stay awake while talking to me. Supportive care from a cardiac perspective CAMPOS DUNLAP APRN Jan 05, 2022 14:13 MICHAELA HODGES MD Jan 06, 2022 07:19
[2022-01-05 14:40] LABS: BASE EXCESS COOX -3 mmol/L (-3-3); HCO3 COOX 20 mmol/L (21-28); METHEMOGLOBIN 0.5 % (0.0-1.9); OXYHEMOGLOBIN 93.6 %; PCO2 COOX 29 mmHg (35-46); PO2 COOX 76 mmHg (75-108); SAT O2 COOX 95 % (92-99)
[2022-01-05 15:00] VITALS: BP 171/95
[2022-01-05] MEDS ORDERED: METO50TA6 PO (15:21)
[2022-01-05] MEDS ORDERED: POLY17PO52 PO (15:21)
[2022-01-05] MEDS ORDERED: AMLO-187 PO (15:21)
[2022-01-05] MEDS ORDERED: FLEC50TA PO (15:21)
[2022-01-05] MEDS: ENOXAPARIN 40 MG/0.4 ML SYRINGE. SQ SCH (16:56)
--- NOTE | 2022-01-05 17:48 | NUR ---
Discharge Note: [facility] Discharge instructions and discharge home medications reviewed with Patient and a copy given. All questions have been answered and understanding verbalized. The following instructions and handouts were given: supraventricular tachycardia, flecainide, metoprolol, polyethylene glycol, amlodipine. Discontinued lines and drains: Temporary dialysis catheter. Patient discharged to home with self care via wheelchair.
--- NOTE | 2022-01-05 19:02 | PDOC ---
[employer] PROGRESS NOTE Date of Service DOS: DATE: 01/05/22 TIME: 19:01 Chief Complaint Chief Complaint Hyperkalemia requiring emergent dialysis X1 MAYRA Tachycardia Pancreatitis secondary to hypertriglyceridemia and severe electrolyte disturbance with hyponatremia, hypocalcemia, hypophosphatemia, transaminitis. History of Present Illness History of Present Illness 01/05, cont current, blood cx neg, feels improed, tele stable 01/04 : Febrile to 101.5 F overnight. Blood cultures obtained, initiated on cefepime this morning. He is little more drowsy. If fever curve continues will need repeat CT abdomen pelvis. 01/03: SVT this morning by my interpretation of telemetry given adenosine. Cardiology recommends initiating antiarrhythmic, 01/02: Been stooling. Still with abdominal distention. He is asking for orange juice and has been on clears. Still very tachycardic. Weak 01/01: Patient now transferred out of ICU to the monitored floor. He is more alert wants to drink some orange juice. I rechecked a lipase level is coming down to the 300s we will try clear liquid diet. His creatinine is up to 2 but potassium still within normal limits. 12/31: Patient seen in ICU. Somewhat somnolent today, possibly due to pain medication. When I pressed on his stomach he does wince and admit some tenderness. Apparently patient is not an alcohol drinker, but on admission triglycerides were 2004. We will repeat triglycerides. Discussed with RN, if triglycerides significant elevated (>1000) we can initiate insulin drip check triglycerides every 6 hours. Will stop insulin drip once triglycerides <500. Continue IV fluids. He will likely discharge on fenofibrate and omega-3 fatty acids. 30 minutes critical care time spent reviewing charts, reviewing labs, reviewing imaging, discussion with RN. 12/30: Patient seen and examined. He is tachycardic this morning. He got emergent dialysis yesterday. Potassium now down to 4.3. We have placed a Jones Vitals/I&O Vitals/I&O: Vital Signs Date Time Temp Pulse Resp B/P (MAP) Pulse Ox O2 Delivery O2 Flow Rate FiO2 01/05/22 17:00 92 171/95 01/05/22 15:00 98.0 20 92 Room Air 98.0 01/05/22 08:00 2.0 I & O 01/04/22 01/04/22 01/05/22 15:00 23:00 07:00 Intake Total 1000 ml 180 ml 100 ml Output Total 1440 ml 1500 ml Balance 1000 ml -1260 ml -1400 ml Physical Exam General: Alert, Oriented X3, Cooperative, No acute distress Heart: Regular rate (SR), Normal S1, Normal S2, No murmurs Lungs: Clear Abdomen: Soft, No tenderness, Other (protuberant abd) Extremities: No cyanosis, No edema Skin: No rashes Labs Labs: Laboratory Tests Test 01/04/22 22:55 01/05/22 04:45 01/05/22 07:51 01/05/22 11:26 Glucose (Fingerstick) 131 mg/dL (70-99) 214 mg/dL (70-99) 131 mg/dL (70-99) White Blood Count 11.6 x10^3/uL (4.0-11.0) Red Blood Count 4.24 x10^6/uL (4.30-5.70) Hemoglobin 11.1 g/dL (13.0-17.5) Hematocrit 35.9 % (39.0-53.0) Mean Corpuscular Volume 85 fL (79-100) Mean Corpuscular Hemoglobin 26 pg (25-35) Mean Corpuscular Hemoglobin Concent 31 g/dL (31-37) Red Cell Distribution Width 15.9 % (11.5-14.5) Platelet Count 239 x10^3/uL (140-400) Sodium Level 134 mmol/L (136-145) Potassium Level 4.0 mmol/L (3.5-5.1) Chloride Level 102 mmol/L (98-107) Carbon Dioxide Level 21 mmol/L (21-32) Anion Gap 11 (6-14) Blood Urea Nitrogen 28 mg/dL (8-26) Creatinine 1.3 mg/dL (0.7-1.3) Estimated GFR (Cockcroft-Gault) 73.3 Glucose Level 155 mg/dL (70-99) Calcium Level 8.3 mg/dL (8.5-10.1) Test 01/05/22 13:44 01/05/22 17:01 O2 Saturation 95 % (92-99) Arterial Blood pH 7.45 (7.35-7.45) Arterial Blood pCO2 at Patient Temp 29 mmHg (35-46) Arterial Blood pO2 at Patient Temp 76 mmHg (75-108) Arterial Blood HCO3 20 mmol/L (21-28) Arterial Blood Base Excess -3 mmol/L (-3-3) Oxyhemoglobin 93.6 % Methemoglobin 0.5 % (0.0-1.9) Carbon Monoxide, Quantitative 0.5 % (0.0-1.9) FiO2 Room air Glucose (Fingerstick) 244 mg/dL (70-99) Assessment and Plan Assessmemt and Plan Problems Medical Problems: (1) Hypocalcemia Status: Acute (2) Intractable abdominal pain Status: Acute (3) Pancreatitis Status: Acute Comment Review of Relevant I have reviewed the following items goyo (where applicable) has been applied. Justifications for Admission Other Justification STEVENSON RAMACHANDRAN MD Jan 05, 2022 19:02
[2022-01-05 19:40] VITALS: BP 147/87
--- NOTE | 2022-01-05 19:45 | NUR ---
Addendum 194 Patient given blood pressure medication given VSS, discharge papers given. pt verbalized "he's just ready to go and no questions needed" wheel already in wheel chair and nurse assistance transporting him out.
--- NOTE | 2022-01-05 22:37 | CONS ---
DATE OF CONSULTATION: 01/05/2022 ATTENDING PHYSICIAN: David Holder DO CONSULTING PHYSICIAN: Morgan Tapia MD REASON FOR CONSULTATION: The patient is seen in Pulmonary consultation at the request of Dr. Holder for possible obstructive sleep apnea. HISTORY OF PRESENT ILLNESS: The patient is a 41-year-old that presented with abdominal pain. He presented with abdominal pain secondary to severe pancreatitis with hypertriglyceridemia. He is also being seen for acute renal failure. Creatinine is trending down. Continue to monitor his creatinine. He required emergent dialysis x 1. Over the last several days, he is noted to be snoring. The patient complains of excessive daytime sleepiness. He awakens unrefreshed from his sleep. In the past, his family noticed some apnea spells and snoring spells. I was asked to see him in consultation. PAST MEDICAL HISTORY: Otherwise, remarkable for tobacco use. There is no prior history of renal failure or pancreatitis. PAST SURGICAL HISTORY: None. ALLERGIES: No known drug allergies. FAMILY HISTORY: Diabetes. SOCIAL HISTORY: He continues to smoke. REVIEW OF SYSTEMS: As indicated above, otherwise other systems were reviewed and negative. PHYSICAL EXAMINATION: VITAL SIGNS: Stable. O2 saturation was greater than 92%, currently on 2 liters. GENERAL: Throughout my evaluation, the patient did not fall asleep. HEENT: Eyes: The sclerae were nonicteric. NECK: Jugular venous distention could not be assessed secondary to body habitus. CHEST: Full expansion. LUNGS: Adequate flow. CARDIOVASCULAR: Distant heart sounds. ABDOMEN: Obese. EXTREMITIES: No clubbing, cyanosis. Minimal edema. LABORATORY DATA: Labs were reviewed. White count today was elevated. Hemoglobin and hematocrit were noted. Electrolytes were noted. BUN was 28, creatinine was 1.3. IMPRESSION: 1. Clinical presentation compatible with obstructive sleep apnea. 2. Pancreatitis. 3. Acute kidney injury. 4. Chronic obstructive pulmonary disease, unknown FEV1. 5. Tobacco use. PLAN: 1. We will obtain arterial blood gas. 2. Outpatient polysomnogram. 3. Continue current support. MAGGIE/GEETHA DR: Layo TID: [id number]
[2022-01-06] MEDS ORDERED: PANTOPRAZOLE 40 MG TABLET.DR. PO SCH (07:30)
--- NOTE | 2022-01-06 10:06 | CARD ---
MR#: [id number] Date of Study: 01/05/2022 Ordering Physician: DARVIN CHOI, Referring Physician: DARVIN CHOI Tech: Iva Lindo [facility] APPROVED REPORT EXAM: Two-dimensional and M-mode echocardiogram with Doppler and color Doppler. Other Information Quality : GoodHR: 93bpm Rhythm : NSR INDICATION Chest Pain RISK FACTORS Hypertension Obesity Hyperlipidemia Diabetes 2D DIMENSIONS RVDd4.5 (2.9-3.5cm)Left Atrium(2D)3.9 (1.6-4.0cm) IVSd1.0 (0.7-1.1cm)Aortic Root(2D)4.1 (2.0-3.7cm) LVDd5.6 (3.9-5.9cm)LVOT Diameter2.7 (1.8-2.4cm) PWd1.0 (0.7-1.1cm)LVDs3.5 (2.5-4.0cm) FS (%) 37.4 %SV103.5 ml LVEF(%)66.7 (>50%) Aortic Valve AoV Peak Brandon.130.2cm/sAoV VTI25.7cm AO Peak GR.6.8mmHgLVOT Peak Brandon.78.2cm/s AO Mean GR.4mmHgAVA (VMAX)3.55cm2 Mitral Valve MV E Ocrnwpby88.6cm/sMV DECEL UPAL055wd MV A Qerfbplc03.1cm/sE/A Ratio1.3 Pulmonary Valve PV Peak Knedlljb555.2cm/s LEFT VENTRICLE The left ventricle is normal size. There is normal left ventricular wall thickness. The left ventricu lar systolic function is normal. The estimated ejection fraction is 55-60%. There is normal LV segmen matthew wall motion. No left ventricle thrombus noted on this study. RIGHT VENTRICLE The right ventricle is normal size. There is normal right ventricular wall thickness. The right ventr icular systolic function is normal. ATRIA The left atrium size is normal. The right atrium size is normal. The interatrial septum is intact wit h no evidence for an atrial septal defect or patent foramen ovale as noted on 2-D or Doppler imaging. AORTIC VALVE The aortic valve is normal in structure and function. Doppler and Color Flow revealed no significant aortic regurgitation. There is no significant aortic valvular stenosis. MITRAL VALVE The mitral valve is normal in structure and function. There is no evidence of mitral valve prolapse. There is no mitral valve stenosis. Doppler and Color Flow revealed no mitral valve regurgitation note d. TRICUSPID VALVE The tricuspid valve is normal in structure and function. Doppler and Color Flow revealed no tricuspid valve regurgitation noted. There is no tricuspid valve stenosis. PULMONIC VALVE The pulmonary valve is normal in structure and function. Doppler and Color Flow revealed no pulmonic valvular regurgitation. GREAT VESSELS The aortic root is mildly enlarged. The ascending aorta is Mildly dilated. The IVC is normal in size and collapses >50% with inspiration. PERICARDIAL EFFUSION There is no evidence of significant pericardial effusion. Critical Notification Critical Value: No <Conclusion> The left ventricular systolic function is normal. The estimated ejection fraction is 55-60%. There is normal LV segmental wall motion. There is no evidence of significant pericardial effusion. Signed by : Nino Aguilar, Electronically Approved : 01/06/2022 10:06:01
== END 2022-01-05 19:50 | disposition home or self-care (01) | DRG 439 ==
LOC: ER 14:25 → 4 NORTH 19:27 → 1 WEST ICU 12-30 14:47 → 5 NORTH 12-31 17:26 → 6 SOUTH 01-01 22:50
PROVIDERS: ADMIT Internal Medicine; ATTEND Internal Medicine
PROC: 05HY33Z Insertion of Infusion Device into Upper Vein, Percutaneous Approach (ICD-10-PCS; principal; 2021-12-29)
PROC: B54MZZA Ultrasonography of Right Upper Extremity Veins, Guidance (ICD-10-PCS; 2021-12-29)
DX: K85.90 Acute pancreatitis without necrosis or infection, unspecified (principal); N17.9 Acute kidney failure, unspecified; E87.1 Hypo-osmolality and hyponatremia; I47.1 Supraventricular tachycardia; M62.82 Rhabdomyolysis; E11.65 Type 2 diabetes mellitus with hyperglycemia; E78.1 Pure hyperglyceridemia; E83.39 Other disorders of phosphorus metabolism; E83.51 Hypocalcemia; E86.0 Dehydration; R74.01 Elevation of levels of liver transaminase levels; K76.0 Fatty (change of) liver, not elsewhere classified; E66.9 Obesity, unspecified; E87.5 Hyperkalemia; F17.210 Nicotine dependence, cigarettes, uncomplicated; G47.33 Obstructive sleep apnea (adult) (pediatric); I10 Essential (primary) hypertension; J44.9 Chronic obstructive pulmonary disease, unspecified; Z82.49 Family history of ischemic heart disease and other diseases of the circulatory system; Z83.3 Family history of diabetes mellitus; Z68.35 Body mass index [BMI] 35.0-35.9, adult
CPT/HCPCS: 36415; 36556; 36600; 74177; 76705; 76937; 77001; 80048; 80053; 80061; 80069; 80076; 81001; 82310; 82550; 82805; 82962; 82977; 83605; 83690; 83735; 84100; 84443; 84478; 84484; 85007; 85025; 85027; 86706; 87040; 87340; 93005; 93306; 96361; 96374; 96375; 96376; C1892; C9113; J0153; J0360; J0610; J0692; J1170; J1650; J1815; J2270; J2405; J3010; J3490; J7030; J7050; Q9967; 99285-25; C8929; G0378